=== PATIENT | male | born 1940 | race Caucasian/White ===

== ENCOUNTER → 2017-03-11 | Outpatient (REF) | payer MEDICARE, OTHER ==
[~2017-03-11] MED LIST: /AMLO25TA OR; /METO25TAB OR; ACET50TA PO; ALPR0.25 PO; AUGM875T27 PO; CILO100T PO; CLOP75TA2 PO; EUCECRE2 TOP; GABA100C PO; HEPA100SY INJ; HEPA100SYR IV; INSUDET SC; INSUH10VL INJ; LASI20TA PO; LEVO500I7 IV; LORTTAB2 PO; MULTTAB4 PO; SLF IV; VANC1INJ IV; VITA-121 PO; ZOCO20TA PO
== END ==
LOC: M LAB REF 17:04
PROVIDERS: ATTEND Podiatrist
DX: L97.422 Non-pressure chronic ulcer of left heel and midfoot with fat layer exposed (principal)

== ENCOUNTER → 2017-03-17 | Outpatient (REF) | payer MEDICARE, OTHER ==
[2017-03-17 15:34] LABS: BASO # 0.1 10^3/uL (0.0-0.2); BASO % 0.5 % (0.0-1.0); EOS # 0.4 10^3/uL (0.0-0.50); EOS % 3.8 % (0.0-3.0); IMMATURE GRANULOCYTE % 0.4 % (0-0); LYMPH # 2.8 10^3/uL (1.5-4.5); LYMPH % 25.3 % (24.0-44.0); MEAN CORPUSCULAR HEMOGLOBIN 28.7 pg (27.0-33.0); MEAN CORPUSCULAR HGB CONC 32.6 g/dl (32.0-36.5); MEAN CORPUSCULAR VOLUME 87.9 fl (80.0-96.0); MONO % 9.1 % (0.0-5.0); NEUTROPHILS # 6.8 10^3/uL (1.8-7.7); NEUTROPHILS % 60.9 % (36.0-66.0); PLATELET COUNT, AUTOMATED 252 10^3/uL (150-450); RED CELL DISTRIBUTION WIDTH 14.4 % (11.5-14.5); WHITE BLOOD COUNT 11.2 10^3/uL (4.0-10.0)
[2017-03-17 15:46] LABS: CALCIUM LEVEL 8.3 MG/DL (8.8-10.2); CREATININE FOR GFR 1.58 MG/DL (0.70-1.30); GLOMERULAR FILTRATION RATE 45.4 (>42); POTASSIUM SERUM 3.8 MEQ/L (3.5-5.1)
[2017-03-17 16:16] LABS: ERYTHROCYTE SEDIMENTATION RATE 46 mm/hr (0-20)
== END ==
LOC: M SFHCPLAZ 13:34
PROVIDERS: ATTEND Internal Medicine Infectious Disease
DX: M86.679 Other chronic osteomyelitis, unspecified ankle and foot (principal)

== ENCOUNTER 2018-08-18 21:03 | Inpatient (IN) | payer MEDICARE, OTHER ==
[~2018-08-18] VITALS: Ht 185.4 cm; Wt 95.4 kg
[2018-08-18] MEDS: CILOSTAZOL 100 MG TAB (PLETAL) PO SCH (21:00)
[~2018-08-18 21:03] MED LIST changes: -/AMLO25TA OR; -/METO25TAB OR; -ACET50TA PO; +MAPA500T17 PO; +METO1TAB87 OR; +NORV2TAB OR
[2018-08-19 00:35] VITALS: BP 157/65
[2018-08-19] MEDS ORDERED: CILO100T PO (01:38)
[2018-08-19] MEDS ORDERED: FURO40TA2 PO (01:38)
[2018-08-19] MEDS ORDERED: METO25TA4 PO (01:38)
[2018-08-19] MEDS ORDERED: AMLO5TAB6 PO (01:38)
[2018-08-19] MEDS ORDERED: SIMV20TA2 PO (01:38)
[2018-08-19] MEDS ORDERED: VITAD1000T PO (01:38)
[2018-08-19] MEDS ORDERED: VITMTA PO (01:38)
[2018-08-19] MEDS ORDERED: LEVE1INJ5 SC (01:38)
[2018-08-19] MEDS ORDERED: INSUH10VL SC (01:38)
[2018-08-19] MEDS ORDERED: CLOP75TA2 PO (01:38)
[2018-08-19] MEDS ORDERED: PATIENT COMMENT (01:42)
[2018-08-19] MEDS ORDERED: GLUCAGON FOR INJ 1 MG VIAL (J1610) SC PRN (01:45)
[2018-08-19] MEDS ORDERED: GLUCOSE 4 GM CHEW TABLET PO PRN (01:45)
[2018-08-19] MEDS ORDERED: DEXTROSE 50% 50 ML SYRINGE IV PRN (01:45)
[2018-08-19 02:02] LABS: BASO # 0.1 10^3/uL (0.0-0.2); BASO % 0.4 % (0.0-1.0); EOS # 0.3 10^3/uL (0.0-0.50); EOS % 1.5 % (0.0-3.0); HEMATOCRIT 33.9 % (42.0-52.0); HEMOGLOBIN 10.8 g/dl (13.5-17.5); LYMPH % 11.6 % (24.0-44.0); MEAN CORPUSCULAR HEMOGLOBIN 28.9 pg (27.0-33.0); MEAN CORPUSCULAR HGB CONC 31.9 g/dl (32.0-36.5); MEAN CORPUSCULAR VOLUME 90.6 fl (80.0-96.0); MONO # 1.5 10^3/uL (0.0-0.8); MONO % 8.8 % (0.0-5.0); PLATELET COUNT, AUTOMATED 265 10^3/uL (150-450); RED BLOOD COUNT 3.74 10^6/uL (4.30-6.10); WHITE BLOOD COUNT 16.9 10^3/uL (4.0-10.0)
[2018-08-19 02:28] LABS: C REACTIVE PROTEIN QUANTITATIV 10.8 MG/DL (0.00-0.30); CALCIUM LEVEL 8.2 MG/DL (8.8-10.2); CREATININE FOR GFR 2.08 MG/DL (0.70-1.30); POTASSIUM SERUM 4.7 MEQ/L (3.5-5.1)
[2018-08-19] MEDS: METOPROLOL TART 25 MG TABLET PO SCH ×3 (02:38→21:59)
[2018-08-19] MEDS: SIMVASTATIN 20 MG TAB PO SCH ×2 (02:38→21:59)
[2018-08-19] MEDS: HEPARIN SOD (PORCINE) 5000 UNITS/ML VIAL SC SCH ×3 (02:38→21:59)
[2018-08-19] MEDS: LEVEMIR (INSULIN DETEMIR) 1 UNITS/0.01ML SC SCH ×3 (02:39→22:00)
[2018-08-19] MEDS: VANCOMYCIN HCL 1,000 MG, VIAL MATE ADAPTER 1 EACH in D5W 250 ML IV SCH ×2 (02:39→13:56)
--- NOTE | 2018-08-19 03:11 | PHACANCOPD ---
PHARMACY VANCOMYCIN DOSING Pt Demographics Demographics Patient Age:77 , Weight:104.600 , Gender: male Adjusted Body Weight Date: 08/19/18, Adjusted Body Weight: Kg Events Past 24 Hours Events Past 24 Hours: NO: Dialysis, Diuretic Therapy, Change in CrCl, Fever, Elevation in WBC, Pending Diagnostics, Pending Procedures, Other Vancomycin Vancomycin Target Ranges: 15-20 mcg/ml Vancomycin Load Y/N: Yes Load Dose Date Time Vancomycin Load Dose: 1000MG / 1000MG Date: 08-18 Time: 2099 Vancomycin Dose Date: 08/19/18. Current Vancomycin Dose: [1000mg q12h] Intermittent Dosing?: No Labs Labs Item Value Date Time White Blood Count 16.9 10^3/uL H 08/19/18 0144 Glomerular Filtration Rate 33.0 L 08/19/184 Creatinine 2.08 MG/DL H 08/19/184 Blood Urea Nitrogen 31 MG/DL H 08/19/18 0144 Vital Signs Label Value Date Time Patient Temperature 98.4 degrees F 08/19/18 0035 Temperature Source Temporal 08/19/1834 Creatinine Clearance Date:08/19/18. Creatinine Clearance: [~34]. Pending Labs Trough - @0100 Assessment and Plan Maintaining Current Dose?: Yes Reason for dose change: No Dose Change Pharmacist Note Pharmacist Note Date: 08/19/18. Pharmacist note:Will monitor and make adjustments as needed. JACLYN DO PHARMACY August 19, 2018 03:11
--- NOTE | 2018-08-19 04:56 | HPEPDOC ---
General Date of Admission August 19, 2018 at 00:56 Date of Service: August 19, 2018 Chief Complaint The patient is a 77-year-old male admitted with a reason for visit of Diabetic Foot Ulcer With Osteomyelitis. Source: Patient, RN/, Old records History of Present Illness 77 year old male with PMH of diabetes, hypertension , diabetic neuropathy left foot Charcot joint, chronic osteomyelitis and chronic left foot ulcer on the planter aspect getting regular debarments by Dr Reeves last one was 3 days ago when every thing looked good presented to [facility] this am with redness an swelling of the dorsum of the left foot and increased redness around the chronic planter foot ulcer. The patient there had a WBC count of 18k he was given vanco and zosyn and transferred here for diabetic foot ulcer with ulcer and cellulitis. Here patient complained of increased swelling of the left foot, toes extending upto the mid leg for 2 days and redness of the dorsum of the foot. He does have a dull aching sensation but says he cannot feel much due to his neuropathy. Also the skin around his ulcer on the planter aspect of the foot is more erythematous. He has not noticed any increased discharge from the wound. He did not have any fevers or chills at home or the other hospital. He was admitted for diabetic foot ulcer with cellulitis and possible acute osteomyelitis. Home Medications Scheduled Amlodipine Besylate (Amlodipine Besylate) 5 Mg Tablet, 5 MG PO QHS, (Reported) Cilostazol (Cilostazol) 100 Mg Tablet, 100 MG PO BID, (Reported) Clopidogrel Bisulfate (Clopidogrel) 75 Mg Tablet, 75 MG PO DAILY, (Reported) Furosemide (Furosemide) 40 Mg Tablet, 40 MG PO DAILY, (Reported) Insulin Detemir (Levemir Flextouch) 100 Unit/1 Ml Insuln.pen, 60 UNIT SC QHS, (Reported) Insulin Human Lispro (Novolog) 100 Unit/1 Ml Vial, 1 DOSE SC TID, (Reported) Losartan Potassium (Losartan Potassium) 50 Mg Tablet, 50 MG PO DAILY, (Reported) Metoprolol Tartrate (Metoprolol Tartrate) 25 Mg Tablet, 25 MG PO BID, (Reported) Multivitamins (Thera M Plus Tablet) 1 Each Tablet, 1 TAB PO DAILY, (Reported) Silver Sulfadiazine (Ssd) 50 Gm Cream..g., 1 DOSE TOP BID, (Reported) APPLY TO ULCERS Simvastatin (Simvastatin) 20 Mg Tablet, 20 MG PO QHS, (Reported) Vitamin D (Vitamin D3) 1,000 Unit Tablet, 1,000 UNITS PO DAILY, (Reported) Allergies Coded Allergies: No Known Allergies (Unverified , 09/22/12) Past Medical History Medical History INSULIN-DEPENDENT DIABETES , DIABETIC NEUROPATHY, HISTOPLASMOSIS OF EYE ---LEGALLY BLIND , PERIPHERAL VASCULAR DISEASE , HYPERTENSION , CHRONIC DIABETIC FOOT ULCER ON THE LEFT FOOT PLANTER ASPECT , CHARCOT FOOT LEFT , CHRONIC OSTEOMYELITIS LEFT FOOT CHARCOT JOINT 10/2014 Surgical History STATUS POST BYPASS OF THE LEFT LEG DR. KUMAR VASCULAR SURGEON [facility] IN 2012 , SPOTS REMOVED ON LEFT ARM AND RIGHT KNEE 2014 , BONE REMOVED LEFT FOOT , Family History FATHER: , DIABETES , MOTHER: , OLD AGE, HTN , 1 SISTER(S) . 1 SON(S) , 2 DAUGHTER(S) . Social History * Smoker: Denies Alcohol: Denies Drugs: denies A-FIB/CHADSVASC A-FIB History Current/History of A-Fib/PAF?: No Review of Systems Constitutional: Denies: Chills, Fever, Night Sweats Eyes: Reports: Other (legally blind); Denies: Pain, Vision change ENT: Denies: Head Aches, Ear Pain, Dysphagia Skin: Reports: Itching, Dry, Breakdown (left foot planter aspect ulcer); Denies: Rash, Lesions Pulmonary: Denies: Dyspnea, Cough Cardiovascular: Denies: Chest Pain, Palpitations, Orthopnea, Paroxysmal Noc. Dyspnea Gastrointestinal: Denies: Nausea, Vomiting, Abdominal Pain, Diarrhea Genitourinary: Denies: Dysuria, Frequency, Incontinence, Retention Musculoskeletal: Denies: Neck Pain, Back Pain, Joint Pain, Muscle Pain, Spasms Psych: Reports: Mood Normal; Denies: Depression, Memory Issues Physical Examination General Exam: Positive: Alert, Cooperative, No Acute Distress Eye Exam: Positive: PERRLA, Conjunctiva & lids normal, EOMI; Negative: Sclera icteric ENT Exam: Positive: Atraumatic, Mucous membr. moist/pink, Pharynx Normal Neck Exam: Positive: Supple; Negative: JVD, thyromegaly Chest Exam: Positive: Clear to auscultation, Normal air movement Heart Exam: Positive: Rate Normal, Regular Rhythm, Normal S1, Normal S2; Negative: Murmurs, Rubs Abdomen Exam: Positive: Normal bowel sounds, Soft; Negative: Tenderness, Hepatospenomegaly Extremity Exam: Positive: Edema (on the left leg ) Skin Exam: Positive: Other skin issue (5cm x 4cm planter ulcer in the left foot with clean base, muscles exposed there with surrounding thick skin and inflamat ion. No necrotic tissue seen. ) Neuro Exam: Positive: Normal Speech, Strength at 5/5 X4 ext, Normal Tone Psych Exam: Positive: Mood NL, Memory Intact, Oriented x 3 Vital Signs Vital Signs Date Time Temp Pulse Resp B/P (MAP) Pulse Ox O2 Delivery O2 Flow Rate FiO2 08/19/18 00:35 98.4 99 18 157/65 (95) 96 Laboratory Data Labs 24H Laboratory Tests 2 08/19/18 01:01: Bedside Glucose (Misc Panel) 284H Assessment/Plan 77 year old male with PMH of diabetes, hypertension , diabetic neuropathy left foot Charcot joint, chronic osteomyelitis and chronic left foot ulcer on the planter aspect getting regular debarments by Dr Reeves last one was 3 days ago when every thing looked good presented to [facility] this am with redness an swelling of the dorsum of the left foot and increased redness around the chronic planter foot ulcer. The patient there had a WBC count of 18k he was given vanco and zosyn and transferred here for diabetic foot ulcer with ulcer and cellulitis. Here patient complained of increased swelling of the left foot, toes extending upto the mid leg for 2 days and redness of the dorsum of the foot. He does have a dull aching sensation but says he cannot feel much due to his neuropathy. Also the skin around his ulcer on the planter aspect of the foot is more erythematous. He has not noticed any increased discharge from the wound. He did not have any fevers or chills at home or the other hospital. He was admitted for diabetic foot ulcer with cellulitis and possible acute osteomyelitis. Cellulitis and possible acute osteomyelitis in a diabetic foot with Charcot joint. Patient has chronic diabetic foot ulcer on the left with chronic osteomyelitis being followed by Dr Reeves now seems to have become acutely infected patient has history of MRSA infection before. will give Zosyn and vanco. Follow cultures sent from other hospital. will get foot MRi consult podiatry if needed. May need long course of antibiotics Insulin dependent Diabetes with diabetic neuropathy continue Levemir and lispro Ckd stage 3 to 4 creatinine at 2 today was 1.6 2 years ao so i think this is chronic progression Chronic Anemia probably due to anemia of chronic disease. will check iron levels. stable Hypertension will continue home meds. Peripheral arterial disease s/p bypass graft in the left leg. will continue cilostazole and plavix. hyperlipidemia statin. DVT prophylaxis ordered. Plan / VTE VTE Prophylaxis Ordered?: Yes PAIGE PICHARDO MD August 19, 2018 01:39
[2018-08-19] MEDS: PIPERACILLIN/TAZOBACTAM SOD 2.25 GM in D5W MINI-BAG PLUS 50 ML IV SCH ×4 (05:10→22:00)
[2018-08-19 06:00] VITALS: BP 134/60
[2018-08-19 06:38] LABS: BASO # 0.1 10^3/uL (0.0-0.2); BASO % 0.6 % (0.0-1.0); EOS # 0.3 10^3/uL (0.0-0.50); EOS % 2.2 % (0.0-3.0); HEMATOCRIT 33.8 % (42.0-52.0); HEMOGLOBIN 10.8 g/dl (13.5-17.5); LYMPH # 1.7 10^3/uL (1.5-4.5); LYMPH % 11.6 % (24.0-44.0); MEAN CORPUSCULAR HEMOGLOBIN 28.7 pg (27.0-33.0); MEAN CORPUSCULAR VOLUME 89.9 fl (80.0-96.0); MONO # 1.3 10^3/uL (0.0-0.8); MONO % 8.7 % (0.0-5.0); NEUTROPHILS # 11.1 10^3/uL (1.8-7.7); NEUTROPHILS % 76.4 % (36.0-66.0); PLATELET COUNT, AUTOMATED 261 10^3/uL (150-450); RED BLOOD COUNT 3.76 10^6/uL (4.30-6.10); WHITE BLOOD COUNT 14.5 10^3/uL (4.0-10.0)
[2018-08-19 07:10] LABS: C REACTIVE PROTEIN QUANTITATIV 12.9 MG/DL (0.00-0.30); CALCIUM LEVEL 8.1 MG/DL (8.8-10.2); CREATININE FOR GFR 2.09 MG/DL (0.70-1.30); GLOMERULAR FILTRATION RATE 32.8 (>42); POTASSIUM SERUM 4.5 MEQ/L (3.5-5.1)
[2018-08-19] MEDS: HumaLOG INSULIN (NovoLOG) PER UNIT SC SCH ×4 (09:54→22:00)
[2018-08-19] MEDS: CLOPIDOGREL 75 MG TAB PO SCH (09:55)
[2018-08-19] MEDS: CILOSTAZOL 100 MG TAB (PLETAL) PO SCH ×2 (09:55→21:59)
[2018-08-19] MEDS: amLODIPine 5 MG TAB PO SCH (09:58)
--- NOTE | 2018-08-19 12:35 | REPVR ---
EXAM: MR Left Lower Extremity Without Contrast, Foot EXAM DATE/TIME: 08/19/2018 9:21 AM CLINICAL HISTORY: 77 years old, male; Signs and symptoms; Swelling, leg or foot; Patient HX: Chronic foot wound mid sole of foot; Additional info: Osteomyelitis TECHNIQUE: Imaging protocol: MR of the Left foot without intravenous contrast. COMPARISON: MRI-Foot W/O FOL WITH 11/08/2012 11:16 AM FINDINGS: LIGAMENTS: Medial collateral: Unremarkable. No evidence of tear. Lateral collateral: Unremarkable. No evidence of tear. Lisfranc: There appears to be a complete tear of the Lisfranc ligament. TENDONS: Flexors: Unremarkable. No evidence of tear. Extensors: Unremarkable. No evidence of tear. Peroneal: Abnormal signal within the mid and distal peroneus longus tendon, compatible with tendinosis and at least a partial-thickness tear. The most distal portion of the tendon is difficult to delineate. Tibialis anterior: Unremarkable. No evidence of tear. Tibialis posterior: Trace fluid in the posterior tibialis tendon sheath. Mild distal posterior tibialis tendinosis. Muscles: Intramuscular edema at the plantar aspect of the foot. Fluid: There is a small loculated intramuscular fluid collection at the plantar aspect of the base of the third metatarsal. This measures 8 mm x 7 mm x 9 mm, and is suspicious for an abscess. Sinus tarsi: Unremarkable. Tarsal tunnel: Unremarkable. Plantar fascia: Complete tear of the central band of the plantar fascia, measuring approximately 2.5 cm x 3.7 cm. Cartilage: Unremarkable. Bones/joints: Pes planus. Plantar subluxation of the navicular, cuboid, and cuneiforms. Medial subluxation of the navicular. Moderate degenerative changes of the midfoot. Hypointense T1 and hyperintense T2 subchondral marrow signal within the plantar aspect of the lateral cuneiform. Slightly hypointense T1 and moderately hyperintense T2 marrow signal throughout the cuboid. Suspected resection of the medial cuneiform. Soft tissues: Diffuse subcutaneous edema. IMPRESSION: 1. Findings are suggestive of acute osteomyelitis involving the cuboid and lateral cuneiform. 2. Probable small soft tissue abscess at the plantar aspect of the proximal forefoot. 3. Cellulitis and myositis. 4. Charcot joint. 5. Mild posterior tibialis tendinosis and tenosynovitis. 6. Peroneus longus tendinosis and at least partial thickness tear of the distal tendon. 7. Full-thickness tear of the plantar fascia. Electronically signed by: Tania Franco On 08/19/2018 12:35:01 PM
[2018-08-19 14:00] VITALS: BP 103/48
--- NOTE | 2018-08-19 14:47 | CR ---
DATE OF CONSULTATION: 08/19/2018 BRIEF HISTORY OF PRESENT ILLNESS: The patient is a 77-year-old male who presents to the [facility] with cellulitis of his left foot. He has been seeing Dr. Reeves every week or every other week for this Charcot foot deformity with chronic osteomyelitis, chronic foot ulcer and developed some swelling and increasing pain for the last 2 days. He has had no fevers or chills. Had an increased white count and presents now for additional recommendations. Underwent a MRI of the foot which reportedly shows osteomyelitis of the cuboid the lateral cuneiform. There is a question of a small abscess and it is less than a centimeter in size. There is some cellulitis inflammation of the muscles, etc. The patient presents with a elevated white count of 16.9 early this morning and it is down to 14.5 now. PAST MEDICAL HISTORY: His past medical history is significant for history of diabetes mellitus, history of previous debridements of the foot removal of bones, history of Charcot foot, history of peripheral vascular disease status post left fem distal bypass, history of diabetic neuropathy. MEDICATIONS: Amlodipine, cilostazol, Plavix, Lasix, insulin, metoprolol, simvastatin, vitamin D and multivitamins. PHYSICAL EXAMINATION: Reveals a 77-year-old male who looks stated age. HEENT is unremarkable. Neck: Supple without adenopathy. Lungs are clear. Heart is regular with multiple irregular beats. Abdomen: Soft, nontender, nondistended. Extremities reveal 2 to 3+ pitting edema of the foot. There is some reactive erythema with the foot down but when he has his foot up majority of the erythema seems to go away. But there is still some present. The wound was probed with a Q-tip and cannot appreciate the abscess at this time. Did not seem to deep into the midfoot. No purulent drainage was appreciated. IMPRESSION AND PLAN: The patient has cellulitis of the left foot with a questionable small abscess, although at this point I am not convinced, that it may just be some fluid in between that tissue layers. I would recommend local dressing changes keep foot elevated and I would recommend that if he is still here on Tuesday I should consult Dr. Reeves for additional recommendations. Unfortunately, given his foot deformity he will have some chronic issues indefinitely and given his poor healing of the past I anticipate this may be something that will be a lifelong and have concerning potential for a need for DKA at some point. In any case the patient is stable at this point no urgent or emergent need for operative intervention / amputation. Please contact me if you would like further recommendations but at this point I anticipate just foot elevation antibiotics. Local wound care should be adequate to improve the current situation until Dr. Reeves returns from his holiday weekend.
--- NOTE | 2018-08-19 18:03 | IPNPDOC ---
Date Seen The patient was seen on 08/19/18. Progress Note SUBJECTIVE: Patient looks comfortable. Reports discomfort in L. foot due to ulcer but otherwise denies any other complaints. MRI reported evidence of osteomyelitis. Surgery evaluated. OBJECTIVE PHYSICAL EXAMINATION: VITAL SIGNS: Please see below. General: No acute distress, Alert Eyes: Normal sclera, EOMI, KYLEIGH HENT: Atraumatic, neck supple, moist mucous membranes Cardiovascular: Normal rate, normal rhythm. No murmurs appreciated. Pulmonary: Clear to auscultation b/l, no wheezing GI: Soft, nontender, nondistended Skin: Warm and dry. MSK: L. mid foot plantar surface with open wound dry with some erythema. Neuro: CN grossly intact. No focal deficits. Strengths equal b/l. Psych: oriented x 3 LABORATORY DATA, IMAGING STUDIES, MICROBIOLOGY: Please see below. ASSESSMENT AND PLAN: 1. L. foot wound - Chronic diabetic wound normally follows with Dr. Reeves. - Transferred from [facility] for concern of osteomyelitis as patient with leukocytosis of WBC 18. Now trending down. - Patient appeared comfortable however. - MRI of L. foot showed evidence of Osteo and possible small abscess. - Seen by surgery. Recommended Abx at this time, f/u with Podiatry once available. No surgical recommendation at this time. - No evidence of abscess on surgical exam. - Local dressing changes and keeping foot elevated. 2. HTN - Monitor BP - Resume home medications. 3. IDDM - Resume home insulin. - Accuchecks, ISS. 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 IVF if needed. 5. PAD - s/p bypass graft of L. leg - c/w home meds. 6. HLD - c/w home meds VS, I&O, 24H, Fishbone Vital Signs/I&O Vital Signs Date Time Temp Pulse Resp B/P (MAP) Pulse Ox O2 Delivery O2 Flow Rate FiO2 08/19/18 14:00 97.5 87 18 103/48 (66) 96 I&O- Last 24 Hours up to 6 AM 08/19/18 06:00 Intake Total 300 ml Output Total 0 ml Balance 300 ml Laboratory Data 24H LABS Laboratory Tests 2 08/19/18 01:01: Bedside Glucose (Misc Panel) 284H 08/19/18 01:44: Immature Granulocyte % (Auto) 0.7, White Blood Count 16.9H, Red Blood Count 3.74L, Hemoglobin 10.8L, Hematocrit 33.9L, Mean Corpuscular Volume 90.6, Mean Corpuscular Hemoglobin 28.9, Mean Corpuscular Hemoglobin Concent 31.9L, Red Cell Distribution Width 13.6, Platelet Count 265, Neutrophils (%) (Auto) 77.0H, Lymphocytes (%) (Auto) 11.6L, Monocytes (%) (Auto) 8.8H, Eosinophils (%) (Auto) 1.5, Basophils (%) (Auto) 0.4, Neutrophils # (Auto) 13.0H, Lymphocytes # (Auto) 2.0, Monocytes # (Auto) 1.5H, Eosinophils # (Auto) 0.3, Basophils # (Auto) 0.1, Nucleated Red Blood Cells % (auto) 0.0, Anion Gap 7L, Glomerular Filtration Rate 33.0L, Blood Urea Nitrogen 31H, Creatinine 2.08H, Sodium Level 134L, Potassium Level 4.7, Chloride Level 103, Carbon Dioxide Level 24, Calcium Level 8.2L, C-Reactive Protein, Quantitative 10.80H 08/19/18 06:17: Immature Granulocyte % (Auto) 0.5, White Blood Count 14.5H, Red Blood Count 3.76L, Hemoglobin 10.8L, Hematocrit 33.8L, Mean Corpuscular Volume 89.9, Mean Corpuscular Hemoglobin 28.7, Mean Corpuscular Hemoglobin Concent 32.0, Red Cell Distribution Width 13.6, Platelet Count 261, Neutrophils (%) (Auto) 76.4H, Lymphocytes (%) (Auto) 11.6L, Monocytes (%) (Auto) 8.7H, Eosinophils (%) (Auto) 2.2, Basophils (%) (Auto) 0.6, Neutrophils # (Auto) 11.1H, Lymphocytes # (Auto) 1.7, Monocytes # (Auto) 1.3H, Eosinophils # (Auto) 0.3, Basophils # (Auto) 0.1, Nucleated Red Blood Cells % (auto) 0.0, Anion Gap 7L, Glomerular Filtration Rate 32.8L, Blood Urea Nitrogen 32H, Creatinine 2.09H, Sodium Level 132L, Potassium Level 4.5, Chloride Level 102, Carbon Dioxide Level 23, Calcium Level 8.1L, C- Reactive Protein, Quantitative 12.90H 08/19/18 11:24: Bedside Glucose (Misc Panel) 346H 08/19/18 16:33: Bedside Glucose (Misc Panel) 183H CBC/BMP Laboratory Tests 08/19/18 01:44 Red Blood Count 3.74 L, Mean Corpuscular Volume 90.6, Mean Corpuscular Hemoglobin 28.9, Mean Corpuscular Hemoglobin Concent 31.9 L, Red Cell Distribution Width 13.6, Neutrophils (%) (Auto) 77.0 H, Lymphocytes (%) (Auto) 11.6 L, Monocytes (%) (Auto) 8.8 H, Eosinophils (%) (Auto) 1.5, Basophils (%) (Auto) 0.4, Neutrophils # (Auto) 13.0 H, Lymphocytes # (Auto) 2.0, Monocytes # (Auto) 1.5 H, Eosinophils # (Auto) 0.3, Basophils # (Auto) 0.1, Calcium Level 8.2 L 08/19/18 06:17 Red Blood Count 3.76 L, Mean Corpuscular Volume 89.9, Mean Corpuscular Hemoglobin 28.7, Mean Corpuscular Hemoglobin Concent 32.0, Red Cell Distribution Width 13.6, Neutrophils (%) (Auto) 76.4 H, Lymphocytes (%) (Auto) 11.6 L, Monocytes (%) (Auto) 8.7 H, Eosinophils (%) (Auto) 2.2, Basophils (%) (Auto) 0.6, Neutrophils # (Auto) 11.1 H, Lymphocytes # (Auto) 1.7, Monocytes # (Auto) 1.3 H, Eosinophils # (Auto) 0.3, Basophils # (Auto) 0.1, Calcium Level 8.1 L Microbiology Microbiology 08/19/18 Gram Stain - Final, Resulted 08/19/18 Wound Culture, Resulted Pending FRANCOISE JOHNSON MD August 19, 2018 18:03
[2018-08-19 22:00] VITALS: BP 142/66
--- NOTE | 2018-08-20 01:29 | PHACANCOPD ---
PHARMACY VANCOMYCIN DOSING Pt Demographics Demographics Patient Age:77 , Weight:104.600 , Gender: male Adjusted Body Weight Date: 08/19/18, Adjusted Body Weight: Kg Events Past 24 Hours Events Past 24 Hours: NO: Dialysis, Diuretic Therapy, Change in CrCl, Fever, Elevation in WBC, Pending Diagnostics, Pending Procedures, Other Vancomycin Vancomycin Target Ranges: 15-20 mcg/ml Vancomycin Load Y/N: Yes Load Dose Date Time Vancomycin Load Dose: 1000MG / 1000MG Date: 08-18 Time: 2099 Vancomycin Dose Date: 08/20/18. Current Vancomycin Dose: [1000mg q12h] Intermittent Dosing?: No Labs Labs Item Value Date Time White Blood Count 14.5 10^3/uL H 08/19/18616 Glomerular Filtration Rate 32.8 L 08/19/18616 Creatinine 2.09 MG/DL H 08/19/18616 Blood Urea Nitrogen 32 MG/DL H 08/19/18616 Vancomycin Level Trough 18.2 UG/ML 08/20/18 0053 Vital Signs Label Value Date Time Patient Temperature 98.6 degrees F 08/19/18 2200 Temperature Source Temporal 08/19/18 2200 Micro Microbiology 08/19/18 Gram Stain - Final, Resulted 08/19/18 Wound Culture, Resulted Pending Creatinine Clearance Date:08/19/18. Creatinine Clearance: [~34]. Assessment and Plan Maintaining Current Dose?: Yes Reason for dose change: No Dose Change Pharmacist Note Pharmacist Note Date: 08/19/18. Pharmacist note:Trough of 18.2 is within target range. Will continue current dosing. Will continue to monitor and make adjustments as needed. JACLYN DO PHARMACY August 20, 2018 01:29
[2018-08-20] MEDS: VANCOMYCIN HCL 1,000 MG, VIAL MATE ADAPTER 1 EACH in D5W 250 ML IV SCH ×2 (01:48→15:05)
[2018-08-20] MEDS: PIPERACILLIN/TAZOBACTAM SOD 2.25 GM in D5W MINI-BAG PLUS 50 ML IV SCH ×4 (03:40→20:51)
[2018-08-20 06:00] VITALS: BP 162/84
[2018-08-20 06:57] LABS: BASO % 0.4 % (0.0-1.0); EOS # 0.6 10^3/uL (0.0-0.50); EOS % 5.8 % (0.0-3.0); HEMOGLOBIN 10.6 g/dl (13.5-17.5); LYMPH # 2.1 10^3/uL (1.5-4.5); MEAN CORPUSCULAR HEMOGLOBIN 28.2 pg (27.0-33.0); MEAN CORPUSCULAR HGB CONC 32.1 g/dl (32.0-36.5); MEAN CORPUSCULAR VOLUME 87.8 fl (80.0-96.0); MONO % 9.1 % (0.0-5.0); NEUTROPHILS # 6.8 10^3/uL (1.8-7.7); PLATELET COUNT, AUTOMATED 269 10^3/uL (150-450); RED BLOOD COUNT 3.76 10^6/uL (4.30-6.10); WHITE BLOOD COUNT 10.7 10^3/uL (4.0-10.0)
[2018-08-20 07:20] LABS: CALCIUM LEVEL 8.7 MG/DL (8.8-10.2); CREATININE FOR GFR 1.86 MG/DL (0.70-1.30); GLOMERULAR FILTRATION RATE 37.5 (>42); POTASSIUM SERUM 4.1 MEQ/L (3.5-5.1)
[2018-08-20] MEDS: CLOPIDOGREL 75 MG TAB PO SCH (08:51)
[2018-08-20] MEDS: amLODIPine 5 MG TAB PO SCH (08:52)
[2018-08-20] MEDS: METOPROLOL TART 25 MG TABLET PO SCH ×2 (08:52→21:56)
[2018-08-20] MEDS: HumaLOG INSULIN (NovoLOG) PER UNIT SC SCH ×4 (08:55→21:55)
[2018-08-20] MEDS: LEVEMIR (INSULIN DETEMIR) 1 UNITS/0.01ML SC SCH ×2 (08:55→21:55)
[2018-08-20] MEDS: HEPARIN SOD (PORCINE) 5000 UNITS/ML VIAL SC SCH ×2 (08:56→21:55)
[2018-08-20] MEDS: CILOSTAZOL 100 MG TAB (PLETAL) PO SCH ×2 (08:59→21:57)
[2018-08-20] MEDS ORDERED: LOSA50TA88 PO (11:13)
[2018-08-20] MEDS ORDERED: SILV50CR TOP (11:15)
--- NOTE | 2018-08-20 11:46 | IPNPDOC ---
Date Seen The patient was seen on 08/20/18. Progress Note SUBJECTIVE: Patient looks comfortable. Mild L. foot discomfort overall improving. Afebrile overnight. WBC down to 10.7 today from 14.5. OBJECTIVE PHYSICAL EXAMINATION: VITAL SIGNS: Please see below. General: No acute distress, Alert Eyes: Normal sclera, EOMI, KYLEIGH HENT: Atraumatic, neck supple, moist mucous membranes Cardiovascular: Normal rate, normal rhythm. No murmurs appreciated. Pulmonary: Clear to auscultation b/l, no wheezing GI: Soft, nontender, nondistended Skin: Warm and dry. MSK: L. mid foot plantar surface with open wound dry with some erythema. Neuro: CN grossly intact. No focal deficits. Strengths equal b/l. Psych: oriented x 3 LABORATORY DATA, IMAGING STUDIES, MICROBIOLOGY: Please see below. ASSESSMENT AND PLAN: 1. L. foot wound - Chronic diabetic wound normally follows with Dr. Reeves. - Transferred from [facility] for concern of osteomyelitis as patient with leukocytosis of WBC 18. Now trending down. - Patient appeared comfortable however. - MRI of L. foot showed evidence of Osteo and possible small abscess. - Seen by surgery. Recommended Abx at this time, f/u with Podiatry once available. No surgical recommendation at this time. - No evidence of abscess on surgical exam. - Local dressing changes and keeping foot elevated. 2. HTN - Monitor BP - Resume home medications. 3. IDDM - Resume home insulin. - Accuchecks, ISS. 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 IVF if needed. 5. PAD - s/p bypass graft of L. leg - c/w home meds. 6. HLD - c/w home meds VS, I&O, 24H, Fishbone Vital Signs/I&O Vital Signs Date Time Temp Pulse Resp B/P (MAP) Pulse Ox O2 Delivery O2 Flow Rate FiO2 08/20/18 08:52 82 162/84 08/20/18 06:00 98.7 20 95 I&O- Last 24 Hours up to 6 AM 08/20/18 06:00 Intake Total 2100 ml Output Total 0 ml Balance 2100 ml Laboratory Data 24H LABS Laboratory Tests 2 08/19/18 16:33: Bedside Glucose (Misc Panel) 183H 08/19/18 21:48: Bedside Glucose (Misc Panel) 278H 08/20/18 00:53: Vancomycin Level Trough 18.2 08/20/18 06:40: Immature Granulocyte % (Auto) 0.7, White Blood Count 10.7H, Red Blood Count 3.76L, Hemoglobin 10.6L, Hematocrit 33.0L, Mean Corpuscular Volume 87.8, Mean Corpuscular Hemoglobin 28.2, Mean Corpuscular Hemoglobin Concent 32.1, Red Cell Distribution Width 13.5, Platelet Count 269, Neutrophils (%) (Auto) 64.0, Lymphocytes (%) (Auto) 20.0L, Monocytes (%) (Auto) 9.1H, Eosinophils (%) (Auto) 5.8H, Basophils (%) (Auto) 0.4, Neutrophils # (Auto) 6.8, Lymphocytes # (Auto) 2.1, Monocytes # (Auto) 1.0H, Eosinophils # (Auto) 0.6H, Basophils # (Auto) 0.0, Nucleated Red Blood Cells % (auto) 0.0, Anion Gap 6L, Glomerular Filtration Rate 37.5L, Blood Urea Nitrogen 26H, Creatinine 1.86H, Sodium Level 140#, Potassium Level 4.1, Chloride Level 109H, Carbon Dioxide Level 25, Calcium Level 8.7L 08/20/18 11:24: Bedside Glucose (Misc Panel) 184H CBC/BMP Laboratory Tests 08/20/18 06:40 Red Blood Count 3.76 L, Mean Corpuscular Volume 87.8, Mean Corpuscular Hemoglobin 28.2, Mean Corpuscular Hemoglobin Concent 32.1, Red Cell Distribution Width 13.5, Neutrophils (%) (Auto) 64.0, Lymphocytes (%) (Auto) 20.0 L, Monocytes (%) (Auto) 9.1 H, Eosinophils (%) (Auto) 5.8 H, Basophils (%) (Auto) 0.4, Neutrophils # (Auto) 6.8, Lymphocytes # (Auto) 2.1, Monocytes # (Auto) 1.0 H, Eosinophils # (Auto) 0.6 H, Basophils # (Auto) 0.0, Calcium Level 8.7 L Microbiology Microbiology 08/19/18 Gram Stain - Final, Resulted 08/19/18 Wound Culture, Resulted Pending FRANCOISE JOHNSON MD August 20, 2018 11:46
[2018-08-20 14:00] VITALS: BP 151/67
[2018-08-20] MEDS: LOSARTAN 50 MG TAB PO SCH (14:57)
[2018-08-20] MEDS: FUROSEMIDE 40 MG TAB PO SCH (14:58)
[2018-08-20] MEDS: SIMVASTATIN 20 MG TAB PO SCH (21:56)
[2018-08-20 22:00] VITALS: BP 135/69
[2018-08-21] MEDS: VANCOMYCIN HCL 1,000 MG, VIAL MATE ADAPTER 1 EACH in D5W 250 ML IV SCH (02:28)
[2018-08-21] MEDS: PIPERACILLIN/TAZOBACTAM SOD 2.25 GM in D5W MINI-BAG PLUS 50 ML IV SCH ×4 (04:33→21:30)
[2018-08-21 06:00] VITALS: BP 136/74
[2018-08-21 07:07] LABS: BASO # 0.1 10^3/uL (0.0-0.2); BASO % 0.5 % (0.0-1.0); EOS # 0.5 10^3/uL (0.0-0.50); EOS % 5.8 % (0.0-3.0); HEMATOCRIT 32.9 % (42.0-52.0); HEMOGLOBIN 10.7 g/dl (13.5-17.5); LYMPH # 1.5 10^3/uL (1.5-4.5); LYMPH % 16.6 % (24.0-44.0); MEAN CORPUSCULAR HEMOGLOBIN 29.2 pg (27.0-33.0); MEAN CORPUSCULAR HGB CONC 32.5 g/dl (32.0-36.5); MEAN CORPUSCULAR VOLUME 89.9 fl (80.0-96.0); MONO # 0.9 10^3/uL (0.0-0.8); MONO % 9.3 % (0.0-5.0); NEUTROPHILS # 6.2 10^3/uL (1.8-7.7); NEUTROPHILS % 67.3 % (36.0-66.0); PLATELET COUNT, AUTOMATED 257 10^3/uL (150-450); RED BLOOD COUNT 3.66 10^6/uL (4.30-6.10); WHITE BLOOD COUNT 9.2 10^3/uL (4.0-10.0)
[2018-08-21 07:29] LABS: CREATININE FOR GFR 1.87 MG/DL (0.70-1.30); GLOMERULAR FILTRATION RATE 37.3 (>42); POTASSIUM SERUM 4.6 MEQ/L (3.5-5.1)
[2018-08-21] MEDS: HEPARIN SOD (PORCINE) 5000 UNITS/ML VIAL SC SCH ×2 (08:49→21:31)
[2018-08-21] MEDS: HumaLOG INSULIN (NovoLOG) PER UNIT SC SCH ×4 (08:49→21:32)
[2018-08-21] MEDS: LOSARTAN 50 MG TAB PO SCH (08:50)
[2018-08-21] MEDS: FUROSEMIDE 40 MG TAB PO SCH (08:50)
[2018-08-21] MEDS: CILOSTAZOL 100 MG TAB (PLETAL) PO SCH ×2 (08:50→21:31)
[2018-08-21] MEDS: LEVEMIR (INSULIN DETEMIR) 1 UNITS/0.01ML SC SCH ×2 (08:50→21:32)
[2018-08-21] MEDS: CLOPIDOGREL 75 MG TAB PO SCH (08:51)
[2018-08-21] MEDS: METOPROLOL TART 25 MG TABLET PO SCH ×2 (08:51→21:31)
[2018-08-21] MEDS: amLODIPine 5 MG TAB PO SCH (08:51)
--- NOTE | 2018-08-21 09:25 | IPN ---
DATE OF SERVICE: 08/21/2018 The patient seems to be doing well overnight. Has decreasing edema. Has been afebrile. His white count is down to normal. He has had decreasing drainage from his foot. Overall, on his physical examination, his edema, erythema, and drainage has decreased substantially since his admission. IMPRESSION AND PLAN: The patient has a stable wound. At this point, it can be evaluated by Dr. Reeves when he returns to the area tomorrow or as an outpatient. From a surgical standpoint, no emergent surgical intervention is needed, and I will be signing off for now. Please contact me if you need further advice or information.
--- NOTE | 2018-08-21 10:12 | IPNPDOC ---
Date Seen The patient was seen on 08/21/18. Progress Note SUBJECTIVE: Patient looks comfortable and offered no complaints. L. foot dressing changed this AM. Afebrile overnight. Leukocytosis resolved. OBJECTIVE PHYSICAL EXAMINATION: VITAL SIGNS: Please see below. General: No acute distress, Alert Eyes: Normal sclera, EOMI, KYLEIGH HENT: Atraumatic, neck supple, moist mucous membranes Cardiovascular: Normal rate, normal rhythm. No murmurs appreciated. Pulmonary: Clear to auscultation b/l, no wheezing GI: Soft, nontender, nondistended Skin: Warm and dry. MSK: L. mid foot plantar surface with open wound dry with some erythema. Neuro: CN grossly intact. No focal deficits. Strengths equal b/l. Psych: oriented x 3 LABORATORY DATA, IMAGING STUDIES, MICROBIOLOGY: Please see below. ASSESSMENT AND PLAN: 1. L. foot wound - Chronic diabetic wound normally follows with Dr. Reeves. - Transferred from [facility] for concern of osteomyelitis as patient with leukocytosis of WBC 18. Now trending down. - MRI of L. foot showed evidence of Osteo and possible small abscess. Seen by surgery, does not appear to have abscess. - c/w Abx at this time, f/u with Podiatry once available. No surgical recommendation at this time. - Local dressing changes and keeping foot elevated. 2. HTN - Monitor BP - Resume home medications. 3. IDDM - Resume home insulin. - Accuchecks, ISS. 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 IVF if needed. 5. PAD - s/p bypass graft of L. leg - c/w home meds. 6. HLD - c/w home meds VS, I&O, 24H, Supriya Vital Signs/I&O Vital Signs Date Time Temp Pulse Resp B/P (MAP) Pulse Ox O2 Delivery O2 Flow Rate FiO2 08/21/18 08:51 83 136/74 08/21/18 06:00 97.6 18 96 I&O- Last 24 Hours up to 6 AM 08/21/18 06:00 Intake Total 2710 ml Output Total 400 ml Balance 2310 ml Laboratory Data 24H LABS Laboratory Tests 2 08/20/18 11:24: Bedside Glucose (Misc Panel) 184H 08/20/18 17:05: Bedside Glucose (Misc Panel) 309H 08/20/18 21:42: Bedside Glucose (Misc Panel) 331H 08/21/18 06:49: Immature Granulocyte % (Auto) 0.5, White Blood Count 9.2, Red Blood Count 3.66L, Hemoglobin 10.7L, Hematocrit 32.9L, Mean Corpuscular Volume 89.9, Mean Corpuscular Hemoglobin 29.2, Mean Corpuscular Hemoglobin Concent 32.5, Red Cell Distribution Width 13.2, Platelet Count 257, Neutrophils (%) (Auto) 67.3H, Lymphocytes (%) (Auto) 16.6L, Monocytes (%) (Auto) 9.3H, Eosinophils (%) (Auto) 5.8H, Basophils (%) (Auto) 0.5, Neutrophils # (Auto) 6.2, Lymphocytes # (Auto) 1.5, Monocytes # (Auto) 0.9H, Eosinophils # (Auto) 0.5, Basophils # (Auto) 0.1, Nucleated Red Blood Cells % (auto) 0.0, Anion Gap 5L, Glomerular Filtration Rate 37.3L, Blood Urea Nitrogen 21H, Creatinine 1.87H, Sodium Level 139, Potassium Level 4.6, Chloride Level 107, Carbon Dioxide Level 27, Calcium Level 8.0L CBC/BMP Laboratory Tests 08/21/18 06:49 Red Blood Count 3.66 L, Mean Corpuscular Volume 89.9, Mean Corpuscular Hemoglobin 29.2, Mean Corpuscular Hemoglobin Concent 32.5, Red Cell Distribution Width 13.2, Neutrophils (%) (Auto) 67.3 H, Lymphocytes (%) (Auto) 16.6 L, Monocytes (%) (Auto) 9.3 H, Eosinophils (%) (Auto) 5.8 H, Basophils (%) (Auto) 0.5, Neutrophils # (Auto) 6.2, Lymphocytes # (Auto) 1.5, Monocytes # (Auto) 0.9 H, Eosinophils # (Auto) 0.5, Basophils # (Auto) 0.1, Calcium Level 8.0 L Microbiology Microbiology 08/19/18 Gram Stain - Final, Complete 08/19/18 Wound Culture - Final, Complete Staphylococcus Aureus FRANCOISE JOHNSON MD August 21, 2018 10:12
[2018-08-21 14:00] VITALS: BP 147/69
--- NOTE | 2018-08-21 14:50 | PHACANCOPD ---
PHARMACY VANCOMYCIN DOSING Pt Demographics Demographics Patient Age:77 , Weight:104.900 , Gender: male Adjusted Body Weight Date: 08/19/18, Adjusted Body Weight: Kg Vancomycin Vancomycin indication: LEFT DIABETIC FOOT ULCER WITH ABSCESS/POSS OSTEO Vancomycin Target Ranges: 15-20 mcg/ml Vancomycin Load Y/N: Yes Load Dose Date Time Vancomycin Load Dose: 1000MG / 1000MG Date: 08-18 Time: 20990 Vancomycin Dose Date: 08/20/18. Current Vancomycin Dose: [1000mg q18h] Intermittent Dosing?: No Labs Micro Microbiology 08/19/18 Gram Stain - Final, Complete 08/19/18 Wound Culture - Final, Complete Staphylococcus Aureus Creatinine Clearance Date:08/19/18. Creatinine Clearance: [~34]. Assessment and Plan Maintaining Current Dose?: No Reason for dose change: Trough too high Pharmacist Note Pharmacist Note 08/21/18: Day #3 IV vancomycin therapy. Vancomycin trough level resulted at 21.7mcg/ml. We will reduce the patient's regimen from 1g IV Q12H to 1g IV Q18H for the treatment of a left diabetic foot ulcer with abscess/possible osteo - aiming for a goal trough of 15-20mcg/ml. Scr remains stable at 1.87 today from 2.09 yesterday. A follow-up vancomycin trough level has been scheduled to be drawn tomorrow at 1300. We will continue to monitor and make further dose adjustments if needed. Date: 08/19/18. Pharmacist note:Trough of 18.2 is within target range. Will continue current dosing. Will continue to monitor and make adjustments as needed. RADHA MOSS PHARMACY August 21, 2018 14:50
[2018-08-21] MEDS ORDERED: VANCOMYCIN HCL 1,000 MG, VIAL MATE ADAPTER 1 EACH in D5W 250 ML IV SCH (20:00)
[2018-08-21] MEDS: SIMVASTATIN 20 MG TAB PO SCH (21:31)
[2018-08-21 22:00] VITALS: BP 139/74
[2018-08-22] MEDS: PIPERACILLIN/TAZOBACTAM SOD 2.25 GM in D5W MINI-BAG PLUS 50 ML IV SCH ×2 (03:00→08:38)
[2018-08-22 06:00] VITALS: BP 129/62
[2018-08-22 06:09] LABS: BASO # 0.1 10^3/uL (0.0-0.2); BASO % 0.6 % (0.0-1.0); EOS # 0.7 10^3/uL (0.0-0.50); EOS % 7.8 % (0.0-3.0); HEMATOCRIT 34.7 % (42.0-52.0); HEMOGLOBIN 10.9 g/dl (13.5-17.5); LYMPH # 1.8 10^3/uL (1.5-4.5); LYMPH % 20.9 % (24.0-44.0); MEAN CORPUSCULAR HEMOGLOBIN 27.5 pg (27.0-33.0); MEAN CORPUSCULAR HGB CONC 31.4 g/dl (32.0-36.5); MEAN CORPUSCULAR VOLUME 87.4 fl (80.0-96.0); MONO # 0.8 10^3/uL (0.0-0.8); MONO % 9.5 % (0.0-5.0); NEUTROPHILS # 5.1 10^3/uL (1.8-7.7); NEUTROPHILS % 60.4 % (36.0-66.0); PLATELET COUNT, AUTOMATED 293 10^3/uL (150-450); RED BLOOD COUNT 3.97 10^6/uL (4.30-6.10); WHITE BLOOD COUNT 8.4 10^3/uL (4.0-10.0)
[2018-08-22 06:31] LABS: CALCIUM LEVEL 8.7 MG/DL (8.8-10.2); CREATININE FOR GFR 1.92 MG/DL (0.70-1.30); GLOMERULAR FILTRATION RATE 36.1 (>42); POTASSIUM SERUM 4.1 MEQ/L (3.5-5.1)
[2018-08-22] MEDS: CILOSTAZOL 100 MG TAB (PLETAL) PO SCH ×2 (08:38→21:42)
[2018-08-22] MEDS: amLODIPine 5 MG TAB PO SCH (08:38)
[2018-08-22] MEDS: FUROSEMIDE 40 MG TAB PO SCH (08:38)
[2018-08-22] MEDS: LOSARTAN 50 MG TAB PO SCH (08:38)
[2018-08-22] MEDS: CLOPIDOGREL 75 MG TAB PO SCH (08:38)
[2018-08-22] MEDS: METOPROLOL TART 25 MG TABLET PO SCH ×2 (08:39→21:43)
[2018-08-22] MEDS: HEPARIN SOD (PORCINE) 5000 UNITS/ML VIAL SC SCH (08:39)
[2018-08-22] MEDS: HumaLOG INSULIN (NovoLOG) PER UNIT SC SCH ×4 (08:39→21:42)
[2018-08-22] MEDS: LEVEMIR (INSULIN DETEMIR) 1 UNITS/0.01ML SC SCH ×2 (08:40→21:42)
[2018-08-22 14:00] VITALS: BP 133/67
--- NOTE | 2018-08-22 15:40 | IPNPDOC ---
Date Seen The patient was seen on 08/22/18. Progress Note SUBJECTIVE: Patient continues to state that he feels well and that he is better than before. No longer dizzy when he stands up. Afebrile overnight. OBJECTIVE PHYSICAL EXAMINATION: VITAL SIGNS: Please see below. General: No acute distress, Alert Eyes: Normal sclera, EOMI, KYLEIGH HENT: Atraumatic, neck supple, moist mucous membranes Cardiovascular: Normal rate, normal rhythm. No murmurs appreciated. Pulmonary: Clear to auscultation b/l, no wheezing GI: Soft, nontender, nondistended Skin: Warm and dry. MSK: L. mid foot plantar surface with open wound dry with some erythema. Neuro: CN grossly intact. No focal deficits. Strengths equal b/l. Psych: oriented x 3 LABORATORY DATA, IMAGING STUDIES, MICROBIOLOGY: Please see below. ASSESSMENT AND PLAN: 1. L. foot wound - Chronic diabetic wound normally follows with Dr. Reeves. - Transferred from [facility] for concern of osteomyelitis as patient with leukocytosis of WBC 18. Now resolved. - MRI of L. foot showed evidence of Osteo and possible small abscess. Seen by surgery, does not appear to have abscess. - c/w Abx at this time, f/u with Podiatry today. - Local dressing changes and keeping foot elevated. 2. HTN - Monitor BP - Resume home medications. 3. IDDM - Resume home insulin. - Accuchecks, ISS. 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 IVF if needed. 5. PAD - s/p bypass graft of L. leg - c/w home meds. 6. HLD - c/w home meds VS, I&O, 24H, [facility] Vital Signs/I&O Vital Signs Date Time Temp Pulse Resp B/P (MAP) Pulse Ox O2 Delivery O2 Flow Rate FiO2 08/22/18 08:39 85 129/62 08/22/18 06:00 98.3 19 95 I&O- Last 24 Hours up to 6 AM 08/22/18 05:59 Intake Total 1810 ml Balance 1810 ml Laboratory Data 24H LABS Laboratory Tests 2 08/21/18 16:44: Bedside Glucose (Misc Panel) 206H 08/21/18 20:36: Bedside Glucose (Misc Panel) 255H 08/22/18 05:33: Immature Granulocyte % (Auto) 0.8, White Blood Count 8.4, Red Blood Count 3.97L, Hemoglobin 10.9L, Hematocrit 34.7L, Mean Corpuscular Volume 87.4, Mean Corpuscular Hemoglobin 27.5, Mean Corpuscular Hemoglobin Concent 31.4L, Red Cell Distribution Width 13.2, Platelet Count 293, Neutrophils (%) (Auto) 60.4, Lymphocytes (%) (Auto) 20.9L, Monocytes (%) (Auto) 9.5H, Eosinophils (%) (Auto) 7.8H, Basophils (%) (Auto) 0.6, Neutrophils # (Auto) 5.1, Lymphocytes # (Auto) 1.8, Monocytes # (Auto) 0.8, Eosinophils # (Auto) 0.7H, Basophils # (Auto) 0.1, Nucleated Red Blood Cells % (auto) 0.0, Anion Gap 7L, Glomerular Filtration Rate 36.1L, Blood Urea Nitrogen 20H, Creatinine 1.92H, Sodium Level 140, Potassium Level 4.1, Chloride Level 107, Carbon Dioxide Level 26, Calcium Level 8.7L 08/22/18 11:28: Bedside Glucose (Misc Panel) 281H CBC/BMP Laboratory Tests 08/22/18 05:33 Red Blood Count 3.97 L, Mean Corpuscular Volume 87.4, Mean Corpuscular Hemoglobin 27.5, Mean Corpuscular Hemoglobin Concent 31.4 L, Red Cell Distribution Width 13.2, Neutrophils (%) (Auto) 60.4, Lymphocytes (%) (Auto) 20.9 L, Monocytes (%) (Auto) 9.5 H, Eosinophils (%) (Auto) 7.8 H, Basophils (%) (Auto) 0.6, Neutrophils # (Auto) 5.1, Lymphocytes # (Auto) 1.8, Monocytes # (Auto) 0.8, Eosinophils # (Auto) 0.7 H, Basophils # (Auto) 0.1, Calcium Level 8.7 L Microbiology Microbiology 08/19/18 Gram Stain - Final, Complete 08/19/18 Wound Culture - Final, Complete Staphylococcus Aureus FRANCOISE JOHNSON MD August 22, 2018 15:40
--- NOTE | 2018-08-22 18:13 | IPN ---
DATE: 08/22/2018 CHIEF COMPLAINT: Patient seen for evaluation of an infected left foot ulcer with possible osteomyelitis of his left foot. Patient states that after he left my office last week he was doing well until approximately to Tuesday time period he noticed increase in swelling of his foot and went to [facility] where he was subsequently transferred to [facility] for evaluation of his left foot. HOME MEDICATIONS: Amlodipine 5 mg by mouth at bedtime, cilostazol 100 mg twice a day, clopidogrel 75 mg daily, furosemide 40 mg daily, insulin 60 units subcu at bedtime Levemir flex touch and Humalog Lispro, losartan 50 mg by mouth daily, metoprolol 25 mg by mouth twice a day, multivitamins, simvastatin 20 mg at bedtime and vitamin D 1,000 units daily. ALLERGIES: None. PAST MEDICAL HISTORY: Insulin dependant diabetes, diabetic neuropathy, left Charcot foot deformity, peripheral artery disease, hypertension, stage 4 diabetic ulcer. PAST SURGICAL HISTORY: Artery bypass left leg. PHYSICAL EXAMINATION: Reveals an ulceration present on the plantar surface of his left foot. This ulceration measures 42 mm from medial to lateral, 46 mm from distal to proximal, 1 mm in depth. Extensor digitorum longus tendon is visible in the wound. Plantar fascia is absent. There is no abscess formation on direct palpation. Today there is no active swelling. Pedal pulses are difficult to palpate. LABS: Laboratory studies were reviewed revealing a WBC on admission of 16.9, today 8.4, CRP on admission was 10 on 08/19 it was 12.9. MRI was reviewed revealing possible osteomyelitis of the cuboid and lateral cuneiform. There is a small area of swelling under the base of the 3rd metatarsal. ASSESSMENT: Stage 4 wound plantar surface of left foot. Swelling base of the 3rd metatarsal left foot. PLAN: We discussed with the patient with his improved numbers with possible abscess at the base of the 3rd metatarsal recommend exploring the wound, possible debridement and bony biopsy of the plantar surface if there is an abscess under the 3rd metatarsal this will be drained. Patient's questions were answered and informed consent was obtained and signed by the patient. Hold Plavix, hold Heparin. Patient will be nothing by mouth after breakfast. His questions were answered.
--- NOTE | 2018-08-22 20:50 | CR ---
DATE OF CONSULTATION: 08/22/2018 I was asked to consult by Dr. Reeves for evaluation of left foot infection in a patient with a history of osteomyelitis of the left foot and Charcot arthropathy. HISTORY OF PRESENT ILLNESS: Mr. Dorman is a pleasant 77-year-old gentleman who has a history of chronic diabetic foot ulcer with Charcot arthropathy and follows up with Dr. Reeves on a weekly basis for debridement. He had been doing well and had not had an infection since March 2017. I had not seen him for over a year and half. He had debridement done about a week prior to admission and then developed some swelling and redness of the dorsal aspect of the foot with increasing discharge. He had a white count of 18,000. He was admitted to the hospital for treatment of cellulitis and possible acute osteomyelitis of the foot. The patient had a wound culture done, which was positive for methicillin sensitive Staphylococcus aureus (MSSA). Antibiotics were de-escalated to cefazolin. The patient feels much better. He was seen in consultation today with Dr. Reeves, who will be taking him to the operating room for debridement. Per notes, the erythema and cellulitis was extending into the toes and up to the mid leg. He denied having any fever or chills. No nausea, vomiting or diarrhea on admission. He has now some diarrhea with the antibiotics. MEDICATIONS ON ADMISSION: - amlodipine 5 mg daily - cilostazol 100 mg twice a day - Plavix 75 mg daily - furosemide 40 mg daily - insulin Levemir 60 units at night - Lispro sliding scale - losartan 50 mg daily - metoprolol 25 mg twice a day - multivitamin 1 tablet daily - silver sulfadiazine on the wound - simvastatin 20 mg daily - vitamin D 1000 units daily - cefazolin 2 grams IV every 8 hours Vancomycin and Zosyn were discontinued on 08/22/2018. ALLERGIES: No known drug allergies. PAST MEDICAL HISTORY: 1. Insulin dependent diabetes with diabetic neuropathy. 2. History of histoplasmosis of the eye, legally blind. 3. Peripheral vascular disease. 4. Hypertension. 5. 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 6. History of chronic osteomyelitis of the left foot with methicillin resistant Staphylococcus aureus (MRSA). PAST SURGICAL HISTORY: 1. Bypass to the left leg Dr. Freeman vascular surgery at [facility] in 2012. 2. Skin biopsies of the left arm and right knee. 3. Multiple debridements and foot surgery on the left side by Dr. Reeves. FAMILY HISTORY: Diabetes. SOCIAL HISTORY: He is . He lives with his . They have dogs. He denies smoking, alcohol or drinking. He is retired. REVIEW OF SYSTEMS: No fever or chills. No night sweats. No nausea, vomiting or diarrhea. No chest pain or shortness of breath. He walks with an offloading boot on the left side. According to his daughter, he does too much and he is supposed to be offloading but otherwise nothing relevant other than the swelling of the foot and the drainage. PHYSICAL EXAMINATION: Temperature is 98.1, pulse 88, respirations 18, blood pressure 133/67, oxygen saturation 97% on room air. He has been afebrile throughout this admission from August 19. Heart: Normal S1, S2. No murmurs, rubs or gallops. Lungs are clear. No wheezes or rhonchi. Abdomen: Soft, nontender. No hepatosplenomegaly. Back: No costovertebral angle or lumbosacral tenderness. Extremities: No clubbing, cyanosis or edema. Right foot +2 dorsalis pedis pulse, no lesions. Left foot has Charcot deformity with a large ulcer at the mid foot measuring about 6 x 7 cm with good granulation tissue. There is minimal surrounding erythema. There are two blisters at around 2 o'clock, small and measuring less than a centimeter that have serous drainage with skin maceration. Neurologic: Exam normal. Alert, oriented times three. LABORATORY DATA: White count 8.4, hemoglobin 10.9, hematocrit 34.7, platelets 293, 60% neutrophils, 21% lymphocytes, 9% monocytes. White count is down from 16.9. Sodium 140, potassium 4.1, chloride 107, bicarbonate 26, BUN 20, creatinine 1.92, glucose 285, calcium 8.7, CRP 10.8-12.9. Wound culture showed methicillin sensitive Staphylococcus aureus (MSSA). MRI of the foot done on 08/19/2018 showed acute osteomyelitis involving the cuboid and lateral cuneiform, soft tissue abscess of the proximal forefoot and cellulitis. IMPRESSION: This is a 77-year-old gentleman with a chronic diabetic foot ulcer who recently had debridement and was doing well, developed a Staphylococcus aureus infection with cellulitis. There is concern of acute osteomyelitis and abscess. The patient will be going to the operating room tomorrow with Dr. Reeves for debridement. Clinically, he has markedly improved. His white count is normal and he is feeling better. PLAN: Continue IV cefazolin 2 grams every 8 hours. Obtain CRP, ESR in the morning. We will decide on further antibiotic management depending on intraoperative findings, but I do not see any indication for IV antibiotics at this point. He may be treated with long-term oral antibiotics if there is evidence of osteomyelitis or may also benefit from a couple of doses of dalbavancin, if his insurance if we can get prior authorization at a dose of 1.5 grams at day one and day number 8 and that should fully cover a treatment course for osteomyelitis if there is evidence of bone infection intraoperatively. Please send intraoperative cultures; aerobic, anaerobic. The case has been discussed with Dr. Reeves.
[2018-08-22] MEDS: SIMVASTATIN 20 MG TAB PO SCH (21:42)
[2018-08-22 22:00] VITALS: BP 136/65
[2018-08-23 06:00] VITALS: BP 135/68
[2018-08-23 06:59] LABS: BASO # 0.1 10^3/uL (0.0-0.2); BASO % 0.5 % (0.0-1.0); EOS # 0.9 10^3/uL (0.0-0.50); EOS % 7.7 % (0.0-3.0); HEMATOCRIT 34.8 % (42.0-52.0); HEMOGLOBIN 11.2 g/dl (13.5-17.5); LYMPH # 1.9 10^3/uL (1.5-4.5); LYMPH % 16.3 % (24.0-44.0); MEAN CORPUSCULAR HEMOGLOBIN 28.3 pg (27.0-33.0); MEAN CORPUSCULAR HGB CONC 32.2 g/dl (32.0-36.5); MEAN CORPUSCULAR VOLUME 87.9 fl (80.0-96.0); MONO # 1.1 10^3/uL (0.0-0.8); MONO % 9.9 % (0.0-5.0); NEUTROPHILS # 7.4 10^3/uL (1.8-7.7); NEUTROPHILS % 64.9 % (36.0-66.0); PLATELET COUNT, AUTOMATED 286 10^3/uL (150-450); RED BLOOD COUNT 3.96 10^6/uL (4.30-6.10); WHITE BLOOD COUNT 11.4 10^3/uL (4.0-10.0)
[2018-08-23 07:26] LABS: C REACTIVE PROTEIN QUANTITATIV 4.03 MG/DL (0.00-0.30); CALCIUM LEVEL 8.8 MG/DL (8.8-10.2); CREATININE FOR GFR 2.02 MG/DL (0.70-1.30); GLOMERULAR FILTRATION RATE 34.1 (>42); POTASSIUM SERUM 3.8 MEQ/L (3.5-5.1)
[2018-08-23] MEDS: CLOPIDOGREL 75 MG TAB PO SCH (07:40)
[2018-08-23 07:51] LABS: ERYTHROCYTE SEDIMENTATION RATE 82 mm/hr (0-20)
[2018-08-23] MEDS ORDERED: LEVEMIR (INSULIN DETEMIR) 1 UNITS/0.01ML SC ONE (08:00)
[2018-08-23] MEDS: FUROSEMIDE 40 MG TAB PO SCH (08:10)
[2018-08-23] MEDS: HumaLOG INSULIN (NovoLOG) PER UNIT SC SCH ×4 (08:10→21:00)
[2018-08-23] MEDS: CILOSTAZOL 100 MG TAB (PLETAL) PO SCH ×2 (08:10→22:54)
[2018-08-23] MEDS: LOSARTAN 50 MG TAB PO SCH (08:11)
[2018-08-23] MEDS: amLODIPine 5 MG TAB PO SCH (08:11)
[2018-08-23] MEDS: METOPROLOL TART 25 MG TABLET PO SCH ×2 (08:11→22:55)
[2018-08-23] MEDS ORDERED: ROPIvacaine 0.5% 30 ML INJECTION (J2795 PER 1MG) As Ordered ONE (13:09)
[2018-08-23] MEDS ORDERED: VANCOMYCIN 1000 MG/20 ML VIAL (J3370) As Ordered ONE (13:09)
[2018-08-23] MEDS ORDERED: LIDOCAINE 2% MDV 20 ML VIAL As Ordered ONE (13:09)
[2018-08-23 14:00] VITALS: BP 135/68
--- NOTE | 2018-08-23 14:45 | IPNPDOC ---
Subjective Date Seen The patient was seen on 08/23/18. Subjective Chief Complaint/HPI Patient seen and examined at the bedside. No acute overnight events noted. Patient scheduled for surgical intervention with podiatry this afternoon. Objective Physical Examination General Exam: Positive: Alert, Cooperative, No Acute Distress Eye Exam: Positive: PERRLA, Conjunctiva & lids normal, EOMI; Negative: Sclera icteric ENT Exam: Positive: Atraumatic, Mucous membr. moist/pink, Pharynx Normal Neck Exam: Positive: Supple; Negative: JVD, thyromegaly Chest Exam: Positive: Clear to auscultation, Normal air movement Heart Exam: Positive: Rate Normal, Regular Rhythm, Normal S1, Normal S2; Negative: Murmurs, Rubs Abdomen Exam: Positive: Normal bowel sounds, Soft; Negative: Tenderness, Hepatospenomegaly Skin Exam: Positive: Other skin issue (5cm x 4cm planter ulcer in the left foot with clean base, muscles exposed there with surrounding thick skin and inflamation. No necrotic tissue seen. ) Psych Exam: Positive: Oriented x 3 Assessment /Plan Plan/VTE VTE Prophylaxis Ordered?: Yes Plan Left Foot Diabetic Wound MRI of L. foot showed evidence of Osteo and possible small abscess. Seen by surgery, does not appear to have abscess as per Dr. Reeves who follows the patient as an outpatient Patient scheduled for surgical intervention as per Podiatry today c/w Abx at this time--ID on board, will follow up with their recommendations Cont Local dressing changes and keeping foot elevated. 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 leg c/w home meds. HLD Cont Statin VS, I&O, 24H, Fishbone Vital Signs/I&O Vital Signs Date Time Temp Pulse Resp B/P (MAP) Pulse Ox O2 Delivery O2 Flow Rate FiO2 08/23/18 08:11 135/68 08/23/18 06:00 98.3 89 18 97 I&O- Last 24 Hours up to 6 AM 08/23/18 06:00 Intake Total 750 ml Output Total 0 ml Balance 750 ml Laboratory Data 24H LABS Laboratory Tests 2 08/22/18 16:43: Bedside Glucose (Misc Panel) 275H 08/22/18 20:41: Bedside Glucose (Misc Panel) 352H 08/23/18 06:44: Immature Granulocyte % (Auto) 0.7, White Blood Count 11.4H, Red Blood Count 3.96L, Hemoglobin 11.2L, Hematocrit 34.8L, Mean Corpuscular Volume 87.9, Mean Corpuscular Hemoglobin 28.3, Mean Corpuscular Hemoglobin Concent 32.2, Red Cell Distribution Width 13.2, Platelet Count 286, Neutrophils (%) (Auto) 64.9, Lymphocytes (%) (Auto) 16.3L, Monocytes (%) (Auto) 9.9H, Eosinophils (%) (Auto) 7.7H, Basophils (%) (Auto) 0.5, Neutrophils # (Auto) 7.4, Lymphocytes # (Auto) 1.9, Monocytes # (Auto) 1.1H, Eosinophils # (Auto) 0.9H, Basophils # (Auto) 0.1, Nucleated Red Blood Cells % (auto) 0.0, Erythrocyte Sedimentation Rate 82H, Anion Gap 7L, Glomerular Filtration Rate 34.1L, Blood Urea Nitrogen 20H, Creatinine 2.02H, Sodium Level 141, Potassium Level 3.8, Chloride Level 106, Carbon Dioxide Level 28, Calcium Level 8.8, C-Reactive Protein, Quantitative 4.03H 08/23/18 12:22: Bedside Glucose (Misc Panel) 230H CBC/BMP Laboratory Tests 08/23/18 06:44 Red Blood Count 3.96 L, Mean Corpuscular Volume 87.9, Mean Corpuscular Hemoglobin 28.3, Mean Corpuscular Hemoglobin Concent 32.2, Red Cell Distribution Width 13.2, Neutrophils (%) (Auto) 64.9, Lymphocytes (%) (Auto) 16.3 L, Monocytes (%) (Auto) 9.9 H, Eosinophils (%) (Auto) 7.7 H, Basophils (%) (Auto) 0.5, Neutrophils # (Auto) 7.4, Lymphocytes # (Auto) 1.9, Monocytes # (Auto) 1.1 H, Eosinophils # (Auto) 0.9 H, Basophils # (Auto) 0.1, Calcium Level 8.8 Microbiology Microbiology 08/19/18 Gram Stain - Final, Complete 08/19/18 Wound Culture - Final, Complete Staphylococcus Aureus IRENE PENA MD August 23, 2018 14:45
[2018-08-23 18:45] VITALS: BP 142/68
[2018-08-23] MEDS ORDERED: PROPOFOL 500 MG/50 ML VIAL As Ordered ONE (19:01)
[2018-08-23] MEDS ORDERED: PROPOFOL 200 MG/20 ML VIAL As Ordered ONE (19:01)
[2018-08-23] MEDS ORDERED: LIDOCAINE 2% INJ 100 MG/5 ML SDV (FOR ANES.) As Ordered ONE (19:01)
[2018-08-23] MEDS ORDERED: ONDANSETRON 4MG/2ML VIAL (J2405) As Ordered ONE (19:01)
[2018-08-23] MEDS ORDERED: fentaNYL 100 MCG/2 ML INJECTION (J3010) As Ordered ONE (19:02)
[2018-08-23] MEDS ORDERED: MIDAZOLAM INJ 2 MG/2 ML VIAL (J2250) As Ordered ONE (19:02)
[2018-08-23] MEDS ORDERED: LR 1,000 ML IV SCH (20:45)
[2018-08-23] MEDS ORDERED: METOCLOPRAMIDE INJ 10MG/2ML VIAL (J2765) IV PRN (20:45)
[2018-08-23] MEDS ORDERED: ONDANSETRON 4MG/2ML VIAL (J2405) IV PRN (20:45)
[2018-08-23] MEDS ORDERED: fentaNYL 100 MCG/2 ML INJECTION (J3010) IV PRN (20:45)
--- NOTE | 2018-08-23 21:10 | RO ---
DATE OF PROCEDURE: 08/23/2018 PREOPERATIVE DIAGNOSIS: Infected left foot wound. POSTOPERATIVE DIAGNOSIS: PROCEDURES PERFORMED: Incisional debridement including bone with bone culture plantar aspect left foot and exploration of possible abscess third and fourth metatarsal base left foot. SURGEON: Kennedy Reeves DPM [employer] DEPARTMENT: None. ANESTHESIA: Local monitored anesthesia care (MAC). ESTIMATED BLOOD LOSS: 10 mL IRRIGATION: Dilute vancomycin solution. 3 liter low pressure pulse lavage system. DESCRIPTION OF OPERATION: On 08/23/2018, this 77-year-old male was taken from his hospital room to the operating room and placed on the operating room table in the supine position. Following induction of IV sedation, local and regional anesthesia, attention was directed to the patient's left foot. There was an ulceration present on the plantar surface of the left foot measuring 4.3 cm from medial to lateral and 4.8 cm from distal to proximal measuring approximately 3 mm in depth. There was also a separate region with two sinus tracts under the plantar aspect of the third metatarsal base. Attention was directed to the larger ulcer where the flexor digitorum longus tendon was visualized. The tendon was retracted in a medial direction and the tendon sheath was opened in that location. Dissection was carried through this level straight to bone. Retraction was performed medial to lateral, creating a flap just adjacent to the bone protecting the neurovascular structures in the area namely the plantar arch. A small area of irregularity was noted in this area in the location of the lateral cuneiform and medial cuneiform and the navicular. Utilizing an osteotome and mallet the irregular bone was osteotomized. The bone was firm. No signs of osteomyelitis. This was sent to culture for aerobic and anaerobic examination/culture. The wound was then lavaged with 3 liters of dilute vancomycin solution with low pressure pulse lavage system and packed with iodoform gauze deep utilizing a Dawn dermal curette. The surrounding area was debrided of hyperkeratotic and necrotic tissue. Ulcer post debridement measured 4.5 from medial to lateral, 5 cm from distal to proximal and 1.5 cm in depth. Attention was then directed to two small sinus tracts. They were explored deeply and opened throughout the area where the wound could be explored. This was approximately 1.5 cm in depth. There was no active purulence in that location. It was lavaged with dilute vancomycin solution and iodoform gauze was placed in both sinus tracts. This did not extend to bone. Dry sterile dressing was then applied. The patient having apparently tolerated the surgical procedure well was taken from the OR to the recovery room for further monitoring by the anesthesia department.
[2018-08-23 22:00] VITALS: BP 147/76
[2018-08-23 22:30] VITALS: BP 152/77
[2018-08-23] MEDS: SIMVASTATIN 20 MG TAB PO SCH (22:54)
[2018-08-23] MEDS: LEVEMIR (INSULIN DETEMIR) 1 UNITS/0.01ML SC SCH (22:55)
[2018-08-23 23:30] VITALS: BP 143/64
[2018-08-24] VITALS (7 sets, daily range): BP systolic 124–161; BP diastolic 61–70
--- NOTE | 2018-08-24 03:49 | REPVR ---
EXAM: XR Chest, 1 View EXAM DATE/TIME: 08/24/2018 3:08 AM CLINICAL HISTORY: 77 years old, male; Signs and symptoms; Cough; Additional info: Cough following surgery TECHNIQUE: Imaging protocol: XR of the chest, 1 view. COMPARISON: CR Chest, 2 view PA, Lat 11/13/2012 10:16 AM FINDINGS: Lungs: No consolidation. Pleural space: No pleural effusion. Heart/Mediastinum: Heart size is increased since the prior comparison. Vasculature: Ectatic thoracic aorta. Bones/joints: Degenerative change of thoracic spine. IMPRESSION: Cardiomegaly. Electronically signed by: Cherelle Ewing On 08/24/2018 03:49:14 AM
[2018-08-24] MEDS: FLUTICASONE PROP 0.05% NASAL SPRAY 16 GM (FLONASE) NARES SCH ×3 (04:02→11:02)
[2018-08-24] MEDS: BENZONATATE 100 MG CAP PO SCH ×3 (04:03→21:36)
[2018-08-24] MEDS: HEPARIN SOD (PORCINE) 5000 UNITS/ML VIAL SC SCH ×2 (05:24→18:47)
[2018-08-24 06:03] LABS: BASO # 0.1 10^3/uL (0.0-0.2); BASO % 0.5 % (0.0-1.0); EOS # 0.8 10^3/uL (0.0-0.50); EOS % 5.6 % (0.0-3.0); HEMATOCRIT 35.8 % (42.0-52.0); HEMOGLOBIN 11.2 g/dl (13.5-17.5); LYMPH # 1.5 10^3/uL (1.5-4.5); LYMPH % 10.6 % (24.0-44.0); MEAN CORPUSCULAR HEMOGLOBIN 27.9 pg (27.0-33.0); MEAN CORPUSCULAR HGB CONC 31.3 g/dl (32.0-36.5); MEAN CORPUSCULAR VOLUME 89.3 fl (80.0-96.0); MONO # 1.1 10^3/uL (0.0-0.8); MONO % 7.9 % (0.0-5.0); NEUTROPHILS # 10.7 10^3/uL (1.8-7.7); NEUTROPHILS % 74.7 % (36.0-66.0); PLATELET COUNT, AUTOMATED 290 10^3/uL (150-450); RED BLOOD COUNT 4.01 10^6/uL (4.30-6.10); WHITE BLOOD COUNT 14.3 10^3/uL (4.0-10.0)
[2018-08-24 06:32] LABS: CALCIUM LEVEL 8.4 MG/DL (8.8-10.2); CREATININE FOR GFR 2.02 MG/DL (0.70-1.30); GLOMERULAR FILTRATION RATE 34.1 (>42); POTASSIUM SERUM 3.9 MEQ/L (3.5-5.1)
[2018-08-24] MEDS: ONDANSETRON 4MG/2ML VIAL (J2405) IV PRN (09:07)
[2018-08-24] MEDS: HumaLOG INSULIN (NovoLOG) PER UNIT SC SCH ×4 (09:10→21:00)
[2018-08-24] MEDS: LEVEMIR (INSULIN DETEMIR) 1 UNITS/0.01ML SC SCH ×2 (10:53→21:36)
[2018-08-24] MEDS: CLOPIDOGREL 75 MG TAB PO SCH (10:54)
[2018-08-24] MEDS: CILOSTAZOL 100 MG TAB (PLETAL) PO SCH ×2 (10:54→21:35)
[2018-08-24] MEDS: FUROSEMIDE 40 MG TAB PO SCH (10:54)
[2018-08-24] MEDS: amLODIPine 5 MG TAB PO SCH (10:54)
[2018-08-24] MEDS: LOSARTAN 50 MG TAB PO SCH (10:54)
[2018-08-24] MEDS: METOPROLOL TART 25 MG TABLET PO SCH ×2 (10:55→21:36)
[2018-08-24] MEDS: ACETAMINOPHEN TAB 650MG DOSE (2X325MG) PO PRN (13:55)
--- NOTE | 2018-08-24 14:24 | IPNPDOC ---
Subjective Date Seen The patient was seen on 08/24/18. Subjective Chief Complaint/HPI Patient seen and examined at bedside. Reports that he is feeling nauseous this morning, and thinks it is due to the anesthesia that he received yesterday. Denies any vomiting, and notes that he has been able to drink milan aayush this morning. Denies any complaints of abdominal pain. Objective Physical Examination General Exam: Positive: Alert, Cooperative, No Acute Distress Eye Exam: Positive: PERRLA, Conjunctiva & lids normal, EOMI; Negative: Sclera icteric ENT Exam: Positive: Atraumatic, Mucous membr. moist/pink, Pharynx Normal Neck Exam: Positive: Supple; Negative: JVD, thyromegaly Chest Exam: Positive: Clear to auscultation, Normal air movement Heart Exam: Positive: Rate Normal, Regular Rhythm, Normal S1, Normal S2; Negative: Murmurs, Rubs Abdomen Exam: Positive: Normal bowel sounds, Soft; Negative: Tenderness, Hepatospenomegaly Skin Exam: Positive: Other skin issue (left foot wrapped in surgical dressing.) Psych Exam: Positive: Oriented x 3 Assessment /Plan Plan/VTE VTE Prophylaxis Ordered?: Yes Plan Left Foot Diabetic Wound MRI of L. foot showed evidence of Osteo and possible small abscess s/p Surgical Debridement by Dr. Reeves of Podiatry on 08/23/18--no evidence of Osteo/Abscess formation noted as per Report, cultures pending c/w Abx at this time--ID on board, will follow up with their recommendations Cont Local dressing changes and keeping foot elevated. 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 leg c/w home meds. HLD Cont Statin DVT Prophylaxis Heparin SC VS, I&O, 24H, Fishbone Vital Signs/I&O Vital Signs Date Time Temp Pulse Resp B/P (MAP) Pulse Ox O2 Delivery O2 Flow Rate FiO2 08/24/18 14:00 98.6 92 20 124/62 (82) 93 08/24/18 13:30 2.0 I&O- Last 24 Hours up to 6 AM 08/24/18 05:59 Intake Total 1750 ml Output Total 0 ml Balance 1750 ml Laboratory Data 24H LABS Laboratory Tests 2 08/23/18 16:45: Bedside Glucose (Misc Panel) 204H 08/23/18 20:30: Bedside Glucose (Misc Panel) 192H 08/23/18 22:46: Bedside Glucose (Misc Panel) 215H 08/24/18 05:29: Immature Granulocyte % (Auto) 0.7, White Blood Count 14.3H, Red Blood Count 4.01L, Hemoglobin 11.2L, Hematocrit 35.8L, Mean Corpuscular Volume 89.3, Mean Corpuscular Hemoglobin 27.9, Mean Corpuscular Hemoglobin Concent 31.3L, Red Cell Distribution Width 13.4, Platelet Count 290, Neutrophils (%) (Auto) 74.7H, Lymphocytes (%) (Auto) 10.6L, Monocytes (%) (Auto) 7.9H, Eosinophils (%) (Auto) 5.6H, Basophils (%) (Auto) 0.5, Neutrophils # (Auto) 10.7H, Lymphocytes # (Auto) 1.5, Monocytes # (Auto) 1.1H, Eosinophils # (Auto) 0.8H, Basophils # (Auto) 0.1, Nucleated Red Blood Cells % (auto) 0.0, Anion Gap 6L, Glomerular Filtration Rate 34.1L, Blood Urea Nitrogen 25H, Creatinine 2.02H, Sodium Level 141, Potassium Level 3.9, Chloride Level 104, Carbon Dioxide Level 31, Calcium Level 8.4L 08/24/18 11:11: Bedside Glucose (Misc Panel) 125H CBC/BMP Laboratory Tests 08/24/18 05:29 Red Blood Count 4.01 L, Mean Corpuscular Volume 89.3, Mean Corpuscular Hemoglobin 27.9, Mean Corpuscular Hemoglobin Concent 31.3 L, Red Cell Distribution Width 13.4, Neutrophils (%) (Auto) 74.7 H, Lymphocytes (%) (Auto) 10.6 L, Monocytes (%) (Auto) 7.9 H, Eosinophils (%) (Auto) 5.6 H, Basophils (%) (Auto) 0.5, Neutrophils # (Auto) 10.7 H, Lymphocytes # (Auto) 1.5, Monocytes # (Auto) 1.1 H, Eosinophils # (Auto) 0.8 H, Basophils # (Auto) 0.1, Calcium Level 8.4 L Microbiology Microbiology 08/23/18 Bacterial Culture, Worksheet Pending 08/23/18 Anaerobic Culture, Worksheet Pending 08/19/18 Gram Stain - Final, Complete 08/19/18 Wound Culture - Final, Complete Staphylococcus Aureus IRENE PENA MD August 24, 2018 14:24
[2018-08-24] MEDS: SIMVASTATIN 20 MG TAB PO SCH (21:36)
[2018-08-25] MEDS: HEPARIN SOD (PORCINE) 5000 UNITS/ML VIAL SC SCH ×2 (05:36→17:43)
[2018-08-25 06:00] VITALS: BP 115/65
[2018-08-25 06:30] LABS: BASO # 0.1 10^3/uL (0.0-0.2); BASO % 0.5 % (0.0-1.0); EOS # 0.8 10^3/uL (0.0-0.50); HEMATOCRIT 34.9 % (42.0-52.0); HEMOGLOBIN 10.9 g/dl (13.5-17.5); LYMPH % 12.4 % (24.0-44.0); MEAN CORPUSCULAR HEMOGLOBIN 28.1 pg (27.0-33.0); MEAN CORPUSCULAR HGB CONC 31.2 g/dl (32.0-36.5); MEAN CORPUSCULAR VOLUME 89.9 fl (80.0-96.0); MONO # 1.4 10^3/uL (0.0-0.8); MONO % 8.6 % (0.0-5.0); NEUTROPHILS # 11.9 10^3/uL (1.8-7.7); NEUTROPHILS % 72.9 % (36.0-66.0); PLATELET COUNT, AUTOMATED 274 10^3/uL (150-450); RED BLOOD COUNT 3.88 10^6/uL (4.30-6.10); WHITE BLOOD COUNT 16.3 10^3/uL (4.0-10.0)
[2018-08-25 06:46] LABS: CALCIUM LEVEL 8.8 MG/DL (8.8-10.2); CREATININE FOR GFR 2.37 MG/DL (0.70-1.30); GLOMERULAR FILTRATION RATE 28.3 (>42); POTASSIUM SERUM 3.8 MEQ/L (3.5-5.1)
[2018-08-25] MEDS: HumaLOG INSULIN (NovoLOG) PER UNIT SC SCH ×4 (08:28→21:00)
[2018-08-25] MEDS: LEVEMIR (INSULIN DETEMIR) 1 UNITS/0.01ML SC SCH ×2 (08:28→21:30)
[2018-08-25] MEDS: CLOPIDOGREL 75 MG TAB PO SCH (08:29)
[2018-08-25] MEDS: BENZONATATE 100 MG CAP PO SCH ×2 (08:29→21:29)
[2018-08-25] MEDS: METOPROLOL TART 25 MG TABLET PO SCH ×2 (08:29→21:29)
[2018-08-25] MEDS: amLODIPine 5 MG TAB PO SCH (08:30)
[2018-08-25] MEDS: FLUTICASONE PROP 0.05% NASAL SPRAY 16 GM (FLONASE) NARES SCH (08:33)
[2018-08-25 09:19] LABS: C REACTIVE PROTEIN QUANTITATIV 14.8 MG/DL (0.00-0.30)
[2018-08-25] MEDS: CILOSTAZOL 100 MG TAB (PLETAL) PO SCH ×2 (11:04→21:29)
--- NOTE | 2018-08-25 11:28 | IPNPDOC ---
Subjective Date Seen The patient was seen on 08/25/18. Subjective Chief Complaint/HPI Patient seen and examined at the bedside this point. He reports that he is feeling much better today and is no longer nauseous. He tells me that he was able to eat all of his breakfast this morning. Objective Physical Examination General Exam: Positive: Alert, Cooperative, No Acute Distress Eye Exam: Positive: PERRLA, Conjunctiva & lids normal, EOMI; Negative: Sclera icteric ENT Exam: Positive: Atraumatic, Mucous membr. moist/pink, Pharynx Normal Neck Exam: Positive: Supple; Negative: JVD, thyromegaly Chest Exam: Positive: Clear to auscultation, Normal air movement Heart Exam: Positive: Rate Normal, Regular Rhythm, Normal S1, Normal S2; Negative: Murmurs, Rubs Abdomen Exam: Positive: Normal bowel sounds, Soft; Negative: Tenderness, Hepatospenomegaly Skin Exam: Positive: Other skin issue (left foot wrapped in surgical dressing.) Psych Exam: Positive: Oriented x 3 Assessment /Plan Plan/VTE VTE Prophylaxis Ordered?: Yes Plan Left Foot Diabetic Wound MRI of L. foot showed evidence of Osteo and possible small abscess s/p Surgical Debridement by Dr. Reeves of Podiatry on 08/23/18--no evidence of Osteo/Abscess formation noted as per Report, cultures pending c/w Abx at this time--ID on board, will follow up with their recommendations Cont Local dressing changes and keeping foot elevated. CKD Stage III-IV Serum Cr elevated compared to yesterday, likely 2/2 decreased PO Intake Will hold Losartan, Lasix today PO Intake encouraged Will follow up with BMP in the AM HTN Cont Norvasc IDDM Cont Insulin as ordered PAD s/p bypass graft of L. leg c/w home meds. HLD Cont Statin DVT Prophylaxis Heparin SC VS, I&O, 24H, Fishbone Vital Signs/I&O Vital Signs Date Time Temp Pulse Resp B/P (MAP) Pulse Ox O2 Delivery O2 Flow Rate FiO2 08/25/18 08:29 87 115/65 08/25/18 06:00 98.0 20 92 2.0 I&O- Last 24 Hours up to 6 AM 08/25/18 05:59 Intake Total 630 ml Output Total 0 ml Balance 630 ml Laboratory Data 24H LABS Laboratory Tests 2 08/24/18 16:14: Bedside Glucose (Misc Panel) 128H 08/24/18 21:07: Bedside Glucose (Misc Panel) 160H 08/25/18 05:49: Immature Granulocyte % (Auto) 0.6, White Blood Count 16.3H, Red Blood Count 3.88 L, Hemoglobin 10.9L, Hematocrit 34.9L, Mean Corpuscular Volume 89.9, Mean Corpuscular Hemoglobin 28.1, Mean Corpuscular Hemoglobin Concent 31.2L, Red Cell Distribution Width 13.9, Platelet Count 274, Neutrophils (%) (Auto) 72.9H, Lymphocytes (%) (Auto) 12.4L, Monocytes (%) (Auto) 8.6H, Eosinophils (%) (Auto) 5.0H, Basophils (%) (Auto) 0.5, Neutrophils # (Auto) 11.9H, Lymphocytes # (Auto) 2.0, Monocytes # (Auto) 1.4H, Eosinophils # (Auto) 0.8H, Basophils # (Auto) 0.1, Nucleated Red Blood Cells % (auto) 0.0, Anion Gap 7L, Glomerular Filtration Rate 28.3L, Blood Urea Nitrogen 31H, Creatinine 2.37H, Sodium Level 143, Potassium Level 3.8, Chloride Level 107, Carbon Dioxide Level 29, Calcium Level 8.8, C- Reactive Protein, Quantitative 14.80H CBC/BMP Laboratory Tests 08/25/18 05:49 Red Blood Count 3.88 L, Mean Corpuscular Volume 89.9, Mean Corpuscular Hemoglobin 28.1, Mean Corpuscular Hemoglobin Concent 31.2 L, Red Cell Distribution Width 13.9, Neutrophils (%) (Auto) 72.9 H, Lymphocytes (%) (Auto) 12.4 L, Monocytes (%) (Auto) 8.6 H, Eosinophils (%) (Auto) 5.0 H, Basophils (%) (Auto) 0.5, Neutrophils # (Auto) 11.9 H, Lymphocytes # (Auto) 2.0, Monocytes # (Auto) 1.4 H, Eosinophils # (Auto) 0.8 H, Basophils # (Auto) 0.1, Calcium Level 8.8 Microbiology Microbiology 08/23/18 Bacterial Culture, Worksheet Pending 08/23/18 Anaerobic Culture, Worksheet Pending 08/19/18 Gram Stain - Final, Complete 08/19/18 Wound Culture - Final, Complete Staphylococcus Aureus IRENE PENA MD August 25, 2018 11:28
[2018-08-25 15:15] VITALS: BP 130/56
--- NOTE | 2018-08-25 15:32 | REP ---
Clinical: Status post bone debridement. Technique: AP, lateral, bilateral oblique views of the left foot. Comparison: 11/08/2012 Findings: Osteopenia and advanced degenerative changes are appreciated. Osseous debridement in the midfoot distorts normal architecture and anatomy. Surrounding swelling is appreciated. Impression: Status post bone debridement involving the midfoot. Underlying osteopenia and advanced degenerative changes consistent with chronic Charcot joint . Electronically Signed by Raghav Sumner MD 08/25/2018 03:24 P
--- NOTE | 2018-08-25 16:26 | IPN ---
DATE: 08/25/2018 Colton has no complaints. He is anxious to go home. Yesterday he was not feeling the greatest. Postoperatively he was having some nausea and did not eat much until last night and this morning he feels better. He has no nausea, vomiting or diarrhea today. No fever or chills, but concerning is that his white count has increased to 16.3. Hemoglobin 10.9, hematocrit 34.9, platelets are 74. Sodium 143, potassium 3.8, chloride 107, bicarb 29, BUN 31, creatinine 2.37, which also has steadily increased. CRP is 14.8, which could the postoperative. Bacterial cultures from operative sites are pending. PHYSICAL EXAMINATION: Temperature is 98, pulse 87, respirations 20, blood pressure 115/65, O2 sat 92% on 2 liters nasal cannula. Heart: Normal S1, S2. No murmurs. Lungs are clear. Abdomen: Obese, soft, nontender. Extremities: No edema. Right foot wound was examined. He has an open ulcer. The ulcer measures about 7 x 6 cm and it was cut in the middle deep to the tissue down to the bone. The packing was removed. It was bloody discharge. There is no purulence. There are two small sinus tracts around 2 o'clock that also were packed. There is no purulence. There is some skin maceration. No tenderness or warmth. IMPRESSION 1. Complicated skin and soft tissue infection in the setting of a diabetic foot ulcer. The patient had wound cultures that were positive for MSSA. Antibiotics were switched to cefazolin on 08/22 and since his switch to cefazolin his white count has trended up to 16.3. I am concerned that there may be underlying pathogens that have not been covered with cefazolin, that were previously covered with vancomycin and Zosyn on admission. 2. Charcot arthropathy of the right foot with diabetic foot ulcer. PLAN Will call the microbiology lab and see what the preliminary cultures on his foot are and may consider switching him back to broad-spectrum antibiotic until results of final cultures are available.
--- NOTE | 2018-08-25 16:46 | IPN ---
DATE: 08/25/2018 TIME: 1:46 p.m. CHIEF COMPLAINT: The patient is seen at bedside for evaluation of a left foot wound. The patient states that he had nausea last night, but he is not nauseous at the moment. He states that he had one other prior bout of nausea. The patient states that he had only one course of loose stool, otherwise unremarkable. The patient states that he feels good. He has no shortness of breath or chest pain. LABORATORY STUDIES: Reviewed and revealing a recent upward trend of his white blood cell count, starting to trend upward on 08/23/2018 at 11.4 and today was 16.3. His ESR on 08/23/2018 was 82. His C-reactive protein on 08/23/2018 was 4.03 and today is 14.8. His dressing was removed. There is no discharge from the two small sinus tracts inferior to the third and fourth metatarsal base. The ulcer on the plantar surface of the mid foot has no discharge, no foul odor. Packing was removed without discharge. Good granulation tissue at the base is noted as well. ASSESSMENT: 1. Status post debridement with bone biopsy of the left foot. PLAN: Since the patient has an upward trending white blood cell count, as well as C-reactive protein, I am questioning an infection at another location versus infected foot ulcer that is not presently being treated by his present course of antibiotics. His bone culture is still pending. I ordered x-rays, two views, of the patient's left foot.
[2018-08-25] MEDS: SIMVASTATIN 20 MG TAB PO SCH (21:29)
[2018-08-25 22:00] VITALS: BP 146/64
[2018-08-26 06:00] VITALS: BP 129/66
[2018-08-26] MEDS: HEPARIN SOD (PORCINE) 5000 UNITS/ML VIAL SC SCH ×2 (06:06→18:15)
[2018-08-26] MEDS: ONDANSETRON 4MG/2ML VIAL (J2405) IV PRN (06:06)
[2018-08-26] MEDS: HumaLOG INSULIN (NovoLOG) PER UNIT SC SCH ×4 (08:13→20:54)
[2018-08-26] MEDS: CILOSTAZOL 100 MG TAB (PLETAL) PO SCH ×2 (10:04→20:52)
[2018-08-26] MEDS: CLOPIDOGREL 75 MG TAB PO SCH (10:05)
[2018-08-26] MEDS: amLODIPine 5 MG TAB PO SCH (10:05)
[2018-08-26] MEDS: BENZONATATE 100 MG CAP PO SCH ×2 (10:06→20:52)
[2018-08-26] MEDS: METOPROLOL TART 25 MG TABLET PO SCH ×2 (10:06→20:53)
[2018-08-26] MEDS: FLUTICASONE PROP 0.05% NASAL SPRAY 16 GM (FLONASE) NARES SCH (10:09)
[2018-08-26] MEDS: LEVEMIR (INSULIN DETEMIR) 1 UNITS/0.01ML SC SCH ×2 (10:09→20:53)
[2018-08-26 10:38] LABS: HEMATOCRIT 33.5 % (42.0-52.0); HEMOGLOBIN 10.8 g/dl (13.5-17.5); MEAN CORPUSCULAR HEMOGLOBIN 29.3 pg (27.0-33.0); MEAN CORPUSCULAR HGB CONC 32.2 g/dl (32.0-36.5); PLATELET COUNT, AUTOMATED 248 10^3/uL (150-450); RED BLOOD COUNT 3.68 10^6/uL (4.30-6.10); WHITE BLOOD COUNT 14.3 10^3/uL (4.0-10.0)
[2018-08-26 11:05] LABS: C REACTIVE PROTEIN QUANTITATIV 17.6 MG/DL (0.00-0.30); CALCIUM LEVEL 7.9 MG/DL (8.8-10.2); CREATININE FOR GFR 2.09 MG/DL (0.70-1.30); GLOMERULAR FILTRATION RATE 32.8 (>42); MAGNESIUM LEVEL 2.2 MG/DL (1.8-2.4); POTASSIUM SERUM 3.7 MEQ/L (3.5-5.1)
[2018-08-26 11:46] VITALS: BP 137/60
[2018-08-26 14:00] VITALS: BP 112/64
--- NOTE | 2018-08-26 14:09 | IPNPDOC ---
Subjective Date Seen The patient was seen on 08/26/18. Subjective Chief Complaint/HPI Patient seen and examined at the bedside. No acute events noted overnight. Patient does not endorse any complaints of pain or discomfort. Objective Physical Examination General Exam: Positive: Alert, Cooperative, No Acute Distress Eye Exam: Positive: PERRLA, Conjunctiva & lids normal, EOMI; Negative: Sclera icteric ENT Exam: Positive: Atraumatic, Mucous membr. moist/pink, Pharynx Normal Neck Exam: Positive: Supple; Negative: JVD, thyromegaly Chest Exam: Positive: Clear to auscultation, Normal air movement Heart Exam: Positive: Rate Normal, Regular Rhythm, Normal S1, Normal S2; Negative: Murmurs, Rubs Abdomen Exam: Positive: Normal bowel sounds, Soft; Negative: Tenderness, Hepatospenomegaly Skin Exam: Positive: Other skin issue (left foot wrapped in surgical dressing.) Psych Exam: Positive: Oriented x 3 Assessment /Plan Plan/VTE VTE Prophylaxis Ordered?: Yes Plan Left Foot Diabetic Wound MRI of L. foot showed evidence of Osteo and possible small abscess s/p Surgical Debridement by Dr. 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 leg c/w home meds. HLD Cont Statin DVT Prophylaxis Heparin SC VS, I&O, 24H, Fishbone Vital Signs/I&O Vital Signs Date Time Temp Pulse Resp B/P (MAP) Pulse Ox O2 Delivery O2 Flow Rate FiO2 08/26/18 11:46 99.0 88 20 137/60 (85) 94 3.0 I&O- Last 24 Hours up to 6 AM 08/26/18 05:59 Intake Total 2100 ml Output Total 900 ml Balance 1200 ml Laboratory Data 24H LABS Laboratory Tests 2 08/25/18 16:27: Bedside Glucose (Misc Panel) 196H 08/25/18 20:45: Bedside Glucose (Misc Panel) 227H 08/26/18 06:18: Bedside Glucose (Misc Panel) 136H 08/26/18 08:16: Nucleated Red Blood Cells % (auto) 0.0, Anion Gap 7L, Glomerular Filtration Rate 32.8L, Blood Urea Nitrogen 33H, Creatinine 2.09H, Sodium Level 141, Potassium Level 3.7, Chloride Level 106, Carbon Dioxide Level 28, Calcium Level 7.9L, Magnesium Level 2.2, C-Reactive Protein, Quantitative 17.60H 08/26/18 11:08: Bedside Glucose (Misc Panel) 210H CBC/BMP Laboratory Tests 08/26/18 08:16 Red Blood Count 3.68 L, Mean Corpuscular Volume 91.0, Mean Corpuscular Hemoglobin 29.3, Mean Corpuscular Hemoglobin Concent 32.2, Red Cell Distribution Width 13.8, Calcium Level 7.9 L Microbiology Microbiology 08/23/18 Bacterial Culture, Resulted Pending 08/23/18 Anaerobic Culture - Final, Resulted 08/19/18 Gram Stain - Final, Complete 08/19/18 Wound Culture - Final, Complete Staphylococcus Aureus IRENE PENA MD Aug 26, 2018 14:09
[2018-08-26] MEDS: ACETAMINOPHEN TAB 650MG DOSE (2X325MG) PO PRN (16:14)
--- NOTE | 2018-08-26 19:03 | REP ---
Clinical: Fever. Chest pain. Technique: PA and lateral. Comparison: 08/24/2018. Findings: Mediastinum and cardiac silhouette are normal. Lung mckeon demonstrate chronic interstitial changes. Superimposed subtle bibasilar ground-glass opacities suggest bronchitis and early atelectasis. No effusion. No pneumothorax. Skeletal structures intact. Impression: Chronic changes with suspected superimposed orchitis and bibasilar atelectasis. Electronically Signed by Raghav Sumner MD 08/26/2018 06:55 P
[2018-08-26] MEDS: PIPERACILLIN/TAZOBACTAM SOD 2.25 GM in D5W MINI-BAG PLUS 50 ML IV SCH (20:52)
[2018-08-26] MEDS: SIMVASTATIN 20 MG TAB PO SCH (20:53)
[2018-08-26 22:00] VITALS: BP 121/60
[2018-08-27] MEDS: PIPERACILLIN/TAZOBACTAM SOD 2.25 GM in D5W MINI-BAG PLUS 50 ML IV SCH ×4 (02:07→19:46)
[2018-08-27] MEDS: ACETAMINOPHEN TAB 650MG DOSE (2X325MG) PO PRN ×3 (05:33→21:25)
[2018-08-27] MEDS: ONDANSETRON 4MG/2ML VIAL (J2405) IV PRN ×2 (05:33→13:26)
[2018-08-27] MEDS: HEPARIN SOD (PORCINE) 5000 UNITS/ML VIAL SC SCH ×2 (05:33→17:30)
[2018-08-27 05:55] LABS: HEMATOCRIT 32.6 % (42.0-52.0); HEMOGLOBIN 10.2 g/dl (13.5-17.5); MEAN CORPUSCULAR HEMOGLOBIN 27.7 pg (27.0-33.0); MEAN CORPUSCULAR HGB CONC 31.3 g/dl (32.0-36.5); MEAN CORPUSCULAR VOLUME 88.6 fl (80.0-96.0); PLATELET COUNT, AUTOMATED 251 10^3/uL (150-450); RED BLOOD COUNT 3.68 10^6/uL (4.30-6.10); WHITE BLOOD COUNT 13.7 10^3/uL (4.0-10.0)
[2018-08-27 06:00] VITALS: BP 133/68
[2018-08-27 06:14] LABS: CALCIUM LEVEL 8.2 MG/DL (8.8-10.2); CREATININE FOR GFR 2.56 MG/DL (0.70-1.30); GLOMERULAR FILTRATION RATE 25.9 (>42); POTASSIUM SERUM 3.4 MEQ/L (3.5-5.1)
[2018-08-27] MEDS ORDERED: POTASSIUM CHLORIDE 10 MEQ SR TABLET PO ONE (08:00)
[2018-08-27] MEDS: HumaLOG INSULIN (NovoLOG) PER UNIT SC SCH ×4 (08:41→20:51)
[2018-08-27] MEDS: amLODIPine 5 MG TAB PO SCH (08:41)
[2018-08-27] MEDS: LEVEMIR (INSULIN DETEMIR) 1 UNITS/0.01ML SC SCH ×2 (08:41→20:50)
[2018-08-27] MEDS: CLOPIDOGREL 75 MG TAB PO SCH (08:41)
[2018-08-27] MEDS: BENZONATATE 100 MG CAP PO SCH ×2 (08:42→20:50)
[2018-08-27] MEDS: METOPROLOL TART 25 MG TABLET PO SCH ×2 (08:42→20:50)
[2018-08-27] MEDS: CILOSTAZOL 100 MG TAB (PLETAL) PO SCH ×2 (08:42→20:50)
[2018-08-27] MEDS: FLUTICASONE PROP 0.05% NASAL SPRAY 16 GM (FLONASE) NARES SCH (08:45)
[2018-08-27] MEDS ORDERED: IPRATROPIUM 0.5MG/ALBUTEROL 2.5MG INH SOL UD 3ML (DUONEB)(J7620) NEB PRN (11:45)
[2018-08-27 13:00] VITALS: BP 139/90
--- NOTE | 2018-08-27 13:28 | REP ---
Clinical: Shortness of breath. Technique: Axial noncontrast images from the thoracic inlet to the upper abdomen with coronal and sagittal re-formations. Findings: Lung mckeon demonstrate patchy alveolar and interstitial infiltrates involving right upper lobe, right middle lobe, and bilateral lower lobes consistent with multifocal pneumonia. No effusion. No pneumothorax. Tracheobronchial tree is patent. Reactive mediastinal and hilar adenopathy noted. Atherosclerotic changes to the thoracic aorta and coronary arteries noted without aortic aneurysm or cardiomegaly. No pericardial effusion. Evidence for prior CABG. Musculoskeletal structures demonstrate degenerative changes. Impression: Bilateral infiltrates compatible with multifocal pneumonia. Electronically Signed by Raghav Sumner MD 08/27/2018 01:19 P
[2018-08-27] MEDS ORDERED: NS 1,000 ML IV SCH (13:45)
--- NOTE | 2018-08-27 13:57 | IPNPDOC ---
Subjective Date Seen The patient was seen on 08/27/18. Subjective Chief Complaint/HPI Patient seen and examined at the bedside. He stated that he was having more difficulty breathing this morning with a cough productive of clear/yellowish sputum. A CT scan of the chest was obtained and this revealed a multifocal pneumonia. The patient has been transferred to the PCU for closer monitoring and observation. Objective Physical Examination General Exam: Positive: Alert, Cooperative, Mild Distress (2/2 cough, SOB) Eye Exam: Negative: Sclera icteric ENT Exam: Positive: Atraumatic; Negative: Mucous membr. moist/pink (dry mucous membranes) Neck Exam: Negative: JVD Chest Exam: Positive: Diminished; Negative: Rales Heart Exam: Positive: Rate Normal, Regular Rhythm, Normal S1, Normal S2; Negative: Murmurs, Rubs Abdomen Exam: Positive: Normal bowel sounds, Soft; Negative: Tenderness, Hepatospenomegaly Skin Exam: Positive: Other skin issue (left foot wrapped in surgical dressing.) Psych Exam: Positive: Oriented x 3 Assessment /Plan Plan/VTE VTE Prophylaxis Ordered?: Yes Plan Sepsis with Hypoxia 2/2 Multifocal Pneumonia Patient with worsening Hypoxia this morning associated with cough productive of clear/yellow sputum, and requiring 4L of Oxygen via NC CT Chest notable for Multifocal Pneumonia Antibiotic Coverage broadened to Vanco and Zosyn Blood Pressure stable, will order Gentle IVF Hydration as the patient does appear to be mildly dehydrated, with decreased in PO intake and bump in Serum Cr. Patient will be transferred to the PCU Updated patient's , Daughter, and Son at the bedside We will cont to closely monitor the patient Left Foot Diabetic Wound MRI of L. foot showed evidence of Osteo and possible small abscess s/p Surgical Debridement by Dr. Reeves of Podiatry on 08/23/18--no evidence of Osteo/Abscess formation noted as per Report, cultures pending WBC downtrending this AM, however CRP increased up 17.6-->19 Abx coverage broadened --ID on board, will follow up with their recommendations Podiatry on board--will follow up with their recommendations CKD Stage III-IV Serum Cr increased to 2.56 this AM (Baseline appears to be ~2.0) 2/2 above Gentle IVF Hydration ordered We will monitor I/O's We will consider Nephrology consultation if the patient's renal function worsens HTN Cont Norvasc IDDM Cont Insulin as ordered PAD s/p bypass graft of L. leg c/w home meds. HLD Cont Statin DVT Prophylaxis Heparin SC Code Status: Full Code--discussed at length with patient, family at the bedside. Condition: Guarded VS, I&O, 24H, Fishbone Vital Signs/I&O Vital Signs Date Time Temp Pulse Resp B/P (MAP) Pulse Ox O2 Delivery O2 Flow Rate FiO2 08/27/18 13:15 4.0 08/27/18 13:00 102.3 115 24 139/90 (106) 93 I&O- Last 24 Hours up to 6 AM 08/27/18 06:00 Intake Total 2160 ml Output Total 800 ml Balance 1360 ml Laboratory Data 24H LABS Laboratory Tests 2 08/26/18 16:48: Bedside Glucose (Misc Panel) 159H 08/26/18 20:38: Bedside Glucose (Misc Panel) 220H 08/27/18 05:41: Nucleated Red Blood Cells % (auto) 0.0, Anion Gap 9, Glomerular Filtration Rate 25.9L, Blood Urea Nitrogen 35H, Creatinine 2.56H, Sodium Level 142, Potassium Level 3.4L, Chloride Level 106, Carbon Dioxide Level 27, Calcium Level 8.2L, C- Reactive Protein, Quantitative 19.00H 08/27/18 11:20: Bedside Glucose (Misc Panel) 164H CBC/BMP Laboratory Tests 08/27/18 05:41 Red Blood Count 3.68 L, Mean Corpuscular Volume 88.6, Mean Corpuscular Hemoglobin 27.7, Mean Corpuscular Hemoglobin Concent 31.3 L, Red Cell Distribution Width 13.8, Calcium Level 8.2 L Microbiology Microbiology 08/26/18 Gram Stain - Final, Complete 08/26/18 Sputum Culture - Final, Complete 08/23/18 Bacterial Culture - Final, Complete Corynebacterium Species 08/23/18 Anaerobic Culture - Final, Complete 08/19/18 Gram Stain - Final, Complete 08/19/18 Wound Culture - Final, Complete Staphylococcus Aureus IRENE PENA MD Aug 27, 2018 13:56
[2018-08-27] MEDS ORDERED: VANCOMYCIN HCL 1,000 MG, VIAL MATE ADAPTER 1 EACH in D5W 250 ML IV ONE (14:00)
[2018-08-27 14:24] LABS: ABG HCO3 23.6 MEQ/L (22.0-26.0); ABG O2 SATURATION 96.8 % (95.0-99.0); ABG PARTIAL PRESSURE CO2 34.7 mmHg (35.0-45.0); ABG PARTIAL PRESSURE O2 84.4 mmHg (75.0-100.0); ABG STANDARD HCO3 24.5 MEQ/L (22.0-26.0); ABG TOTAL CO2 24.7 MEQ/L (23.0-31.0); ABG pH (ARTERIAL) 7.451 UNITS (7.350-7.450)
--- NOTE | 2018-08-27 14:42 | PHACANCOPD ---
PHARMACY VANCOMYCIN DOSING Pt Demographics Demographics Patient Age:77 , Weight:102.300 , Gender: male Adjusted Body Weight Date: 08/19/18, Adjusted Body Weight: Kg Events Past 24 Hours Events Past 24 Hours: YES: Change in CrCl, Elevation in WBC; NO: Dialysis, Diuretic Therapy, Fever, Pending Diagnostics, Pending Procedures, Other Vancomycin Vancomycin indication: pneumonia Vancomycin Target Ranges: 15-20 mcg/ml Vancomycin Load Y/N: Yes Load Dose Date Time Vancomycin Load Dose: 1000mg Date: 08/27 Time: 14:00 Vancomycin Dose Date: 08/27/18. Current Vancomycin Dose: [1000mg q18h @21] Intermittent Dosing?: No Labs Labs Item Value Date Time White Blood Count 16.3 10^3/uL H 08/25/18 0549 White Blood Count 14.3 10^3/uL H 08/26/18 0816 White Blood Count 13.7 10^3/uL H 08/27/18 0541 Creatinine 2.37 MG/DL H 08/25/18 0549 Creatinine 2.09 MG/DL H 08/26/18 0816 Creatinine 2.56 MG/DL H 08/27/18 0541 C-Reactive Protein, Quantitative 14.80 MG/DL H 08/25/18 0549 C-Reactive Protein, Quantitative 17.60 MG/DL H 08/26/18 0816 C-Reactive Protein, Quantitative 19.00 MG/DL H 08/27/18 0541 Micro Microbiology 08/27/18 Blood Culture, Received Pending 08/26/18 Gram Stain - Final, Complete 08/26/18 Sputum Culture - Final, Complete 08/23/18 Bacterial Culture - Final, Complete Corynebacterium Species 08/23/18 Anaerobic Culture - Final, Complete 08/19/18 Gram Stain - Final, Complete 08/19/18 Wound Culture - Final, Complete Staphylococcus Aureus Creatinine Clearance Date:08/27/18. Creatinine Clearance: [~26 ml/min]. Date:08/19/18. Creatinine Clearance: [~34]. Pending Labs Vanco trough scheduled 08/29 @08:00 Assessment and Plan Maintaining Current Dose?: Yes Reason for dose change: No Dose Change Pharmacist Note Pharmacist Note Date: 08/27/18. Pharmacist note: pt has been restarted on Vancomycin for pneumonia. He was on vancomycin this admission from 08/19-08/22 for a diabetic foot ulcer which was switched to Ancef 2g until 08/26 when he was switched to Zosyn 2.25g IV q6h. Vancomycin was added today for broader coverage. I have s tarted the pt on vancomycin 1g this afternoon, followed by 1g IV q18h to begin ~7 hours later. I have a trough scheduled for Tuesday morning. SCr has been elevated from his baseline, pt is currently receiving IV fluids. Sputum culture was poor quality, blood culture is pending. Wound culture from 08/19 grew MSSA. We will continue to monitor and make adjustments as necessary. Andrea Perez Pharm.D. Aug 27, 2018 14:42
[2018-08-27 16:00] VITALS: BP 154/66
[2018-08-27 20:00] VITALS: BP 133/64
[2018-08-27] MEDS: SIMVASTATIN 20 MG TAB PO SCH (20:51)
[2018-08-27] MEDS ORDERED: VANCOMYCIN HCL 1,000 MG, VIAL MATE ADAPTER 1 EACH in D5W 250 ML IV SCH (21:00)
[2018-08-27 23:59] VITALS: BP 119/58
[2018-08-28] MEDS: PIPERACILLIN/TAZOBACTAM SOD 2.25 GM in D5W MINI-BAG PLUS 50 ML IV SCH ×4 (01:38→21:50)
[2018-08-28] MEDS: ACETAMINOPHEN TAB 650MG DOSE (2X325MG) PO PRN ×3 (03:52→16:13)
[2018-08-28 04:00] VITALS: BP 132/63
[2018-08-28] MEDS: HEPARIN SOD (PORCINE) 5000 UNITS/ML VIAL SC SCH ×2 (05:20→18:38)
[2018-08-28 05:37] LABS: HEMATOCRIT 32.5 % (42.0-52.0); HEMOGLOBIN 10.2 g/dl (13.5-17.5); MEAN CORPUSCULAR HEMOGLOBIN 27.7 pg (27.0-33.0); MEAN CORPUSCULAR HGB CONC 31.4 g/dl (32.0-36.5); MEAN CORPUSCULAR VOLUME 88.3 fl (80.0-96.0); PLATELET COUNT, AUTOMATED 245 10^3/uL (150-450); RED BLOOD COUNT 3.68 10^6/uL (4.30-6.10); WHITE BLOOD COUNT 13.9 10^3/uL (4.0-10.0)
[2018-08-28 06:25] LABS: C REACTIVE PROTEIN QUANTITATIV 25.7 MG/DL (0.00-0.30); CALCIUM LEVEL 8.2 MG/DL (8.8-10.2); CREATININE FOR GFR 3.19 MG/DL (0.70-1.30); GLOMERULAR FILTRATION RATE 20.1 (>42); POTASSIUM SERUM 3.7 MEQ/L (3.5-5.1)
[2018-08-28 08:00] VITALS: BP 132/54
[2018-08-28] MEDS: NS 1,000 ML IV SCH (09:28)
[2018-08-28] MEDS: HumaLOG INSULIN (NovoLOG) PER UNIT SC SCH ×4 (09:29→21:00)
[2018-08-28] MEDS: CLOPIDOGREL 75 MG TAB PO SCH (09:29)
[2018-08-28] MEDS: CILOSTAZOL 100 MG TAB (PLETAL) PO SCH ×2 (09:29→21:51)
[2018-08-28] MEDS: amLODIPine 5 MG TAB PO SCH (09:29)
[2018-08-28] MEDS: BENZONATATE 100 MG CAP PO SCH ×2 (09:29→21:51)
[2018-08-28] MEDS: LEVEMIR (INSULIN DETEMIR) 1 UNITS/0.01ML SC SCH ×2 (09:30→21:50)
[2018-08-28] MEDS: METOPROLOL TART 25 MG TABLET PO SCH ×2 (09:30→21:54)
[2018-08-28] MEDS: ONDANSETRON 4MG/2ML VIAL (J2405) IV PRN (09:35)
[2018-08-28] MEDS: FLUTICASONE PROP 0.05% NASAL SPRAY 16 GM (FLONASE) NARES SCH (09:36)
[2018-08-28 12:00] VITALS: BP 127/59
--- NOTE | 2018-08-28 12:51 | REP ---
REASON: Renal disease. COMPARISON: None. Right kidney measures 10.2 x 5.6 x 5.4 cm, left 12.6 x 6.0 x 5.4 cm. The renal cortex is thinned bilaterally with increased renal cortical echoes and less than optimal cortical medullary differentiation. There are no cystic or solid masses. There is no hydronephrosis or proximal hydroureter. IMPRESSION: Findings, as described above, consistent with medical renal disease. Electronically Signed by Holden Morales DO 08/28/2018 01:01 P
--- NOTE | 2018-08-28 15:39 | PHACANCOPD ---
PHARMACY VANCOMYCIN DOSING Pt Demographics Demographics Patient Age:77 , Weight:107.400 , Gender: male Adjusted Body Weight Date: 08/19/18, Adjusted Body Weight: Kg Events Past 24 Hours Events Past 24 Hours: YES: Change in CrCl Vancomycin Vancomycin indication: pneumonia Vancomycin Target Ranges: 15-20 mcg/ml Vancomycin Load Y/N: Yes Load Dose Date Time Vancomycin Load Dose: 1000mg Date: 08/27 Time: 14:00 Vancomycin Dose Date: 08/28/18. Current Vancomycin Dose: [1G IV Q24H @16] Date: 08/27/18. Current Vancomycin Dose: [1000mg q18h @21] Intermittent Dosing?: No Labs Labs Item Value Date Time White Blood Count 14.3 10^3/uL H 08/26/18 0816 White Blood Count 13.7 10^3/uL H 08/27/18 0541 White Blood Count 13.9 10^3/uL H 08/28/18 0513 Creatinine 2.09 MG/DL H 08/26/18 0816 Creatinine 2.56 MG/DL H 08/27/18 0541 Creatinine 3.19 MG/DL H 08/28/18 0513 C-Reactive Protein, Quantitative 19.00 MG/DL H 08/27/18 0541 C-Reactive Protein, Quantitative 25.70 MG/DL H 08/28/18 0513 Micro Microbiology 08/27/18 Blood Culture - Preliminary, Resulted No growth after 24 hours . All specim... 08/27/18 Blood Culture - Preliminary, Resulted No growth after 24 hours . All specim... 08/26/18 Gram Stain - Final, Complete 08/26/18 Sputum Culture - Final, Complete 08/23/18 Bacterial Culture - Final, Complete Corynebacterium Species 08/23/18 Anaerobic Culture - Final, Complete 08/19/18 Gram Stain - Final, Complete 08/19/18 Wound Culture - Final, Complete Staphylococcus Aureus Creatinine Clearance Date:08/28/18. Creatinine Clearance: [~21ML/MIN]. Date:08/27/18. Creatinine Clearance: [~26 ml/min]. Date:08/19/18. Creatinine Clearance: [~34]. Pending Labs Vanco trough scheduled 08/29 @15:00 Assessment and Plan Maintaining Current Dose?: No Reason for dose change: Change in serum Cr Pharmacist Note Pharmacist Note Date: 08/28/18. Current Vancomycin Dose: [PT serum creatinine has continued to increase in this pt up to 3.19g/dl creatinine clearance is estimated at 21.2ml/min. The trough came back today after 2 doses at 17.9mcg/ml. Dosing was decreased to 1g IV every 24 hours starting at 16:00. A trough is scheduled for 08/29/18 @ 15:00. We will continue to monitor and adjust the dose as needed.] Date: 08/27/18. Pharmacist note: pt has been restarted on Vancomycin for pneumonia. He was on vancomycin this admission from 08/19-08/22 for a diabetic foot ulcer which was switched to Ancef 2g until 08/26 when he was switched to Zosyn 2.25g IV q6h. Vancomycin was added today for broader coverage. I have started the pt on vancomycin 1g this afternoon, followed by 1g IV q18h to begin ~7 hours later. I have a trough scheduled for Tuesday morning. SCr has been elevated from his baseline, pt is currently receiving IV fluids. Sputum culture was poor quality, blood culture is pending. Wound culture from 08/19 grew MSSA. We will continue to monitor and make adjustments as necessary. TIMOTHY THOMSON [facility] Aug 28, 2018 15:39
[2018-08-28 16:00] VITALS: BP 140/62
[2018-08-28] MEDS: VANCOMYCIN HCL 1,000 MG, VIAL MATE ADAPTER 1 EACH in D5W 250 ML IV SCH (16:22)
--- NOTE | 2018-08-28 16:50 | IPNPDOC ---
Subjective Date Seen The patient was seen on 08/28/18. Subjective Chief Complaint/HPI Patient seen and examined at bedside. He tells me that he is feeling a little better today, and that his appetite is improved and that he will be ordering breakfast morning. Reports that his cough and shortness of breath has also improved this morning. Objective Physical Examination General Exam: Positive: Alert, Cooperative, No Acute Distress Eye Exam: Negative: Sclera icteric ENT Exam: Positive: Atraumatic, Mucous membr. moist/pink Neck Exam: Negative: JVD Chest Exam: Positive: Diminished; Negative: Rales Heart Exam: Positive: Rate Normal, Regular Rhythm, Normal S1, Normal S2; Negative: Murmurs, Rubs Abdomen Exam: Positive: Normal bowel sounds, Soft; Negative: Tenderness, Hepatospenomegaly Skin Exam: Positive: Other skin issue (left foot unwrapped, diabetic wound on the plantar surface with no drainage, tissue seems to be healing well.) Psych Exam: Positive: Oriented x 3 Assessment /Plan Plan/VTE VTE Prophylaxis Ordered?: Yes Plan Sepsis with Hypoxia 2/[address] Chest notable for Multifocal Pneumonia on 08/27 Procalcitonin noted to be 0.38, however measurement was done early after system process started Sputum Culture contaminated Cont Vanco and Zosyn, MRSA screen ordered Respiratory status improved this morning according to the patient We will cont to down titrate supplemental oxygen as tolerated WBC and CRP markers continue to trend upwards Will follow up with ID recommendations Left Foot Diabetic Wound MRI of L. foot showed evidence of Osteo and possible small abscess on 08/19 s/p Surgical Debridement by Dr. Reeves of Podiatry on 08/23/18--no evidence of Osteo/Abscess formation noted as per Report, cultures noted WBC uptrending this AM, CRP increasing 17.6-->19-->25.7 Dressing undone and left foot examined, no purulant drainage noted, and the wound on the plantar surface seems to be healing well Abx coverage broadened --ID on board, will follow up with their recommendations Podiatry on board--will follow up with their recommendations CKD Stage IV Serum Cr continues to increase this AM 2.56-->3.19 (Baseline appears to be ~2.0) 2/2 above Cont Gentle IVF Hydration Monitor I/O's Renal U/S with no acute findings Nephrology consulted HTN Cont Norvasc IDDM Cont Insulin as ordered PAD s/p bypass graft of L. leg c/w home meds. HLD Cont Statin DVT Prophylaxis Heparin SC Code Status: Full Code VS, I&O, 24H, Fishbone Vital Signs/I&O Vital Signs Date Time Temp Pulse Resp B/P (MAP) Pulse Ox O2 Delivery O2 Flow Rate FiO2 08/28/18 16:00 101.1 108 22 140/62 (88) 96 4.0 I&O- Last 24 Hours up to 6 AM 08/28/18 05:59 Intake Total 1680 ml Output Total 0 ml Balance 1680 ml Laboratory Data 24H LABS Laboratory Tests 2 08/27/18 20:29: Bedside Glucose (Misc Panel) 194H 08/28/18 05:13: Nucleated Red Blood Cells % (auto) 0.0, Anion Gap 8, Glomerular Filtration Rate 20.1L, Blood Urea Nitrogen 41H, Creatinine 3.19H, Sodium Level 139, Potassium Level 3.7, Chloride Level 106, Carbon Dioxide Level 25, Calcium Level 8.2L, C-Reactive Protein, Quantitative 25.70H, UP-Bnw-T-Type Natriuretic Peptide 3243H 08/28/18 12:23: Bedside Glucose (Misc Panel) 249H 08/28/18 14:07: Vancomycin Level Trough 17.9 CBC/BMP Laboratory Tests 08/28/18 05:13 Red Blood Count 3.68 L, Mean Corpuscular Volume 88.3, Mean Corpuscular Hemoglobin 27.7, Mean Corpuscular Hemoglobin Concent 31.4 L, Red Cell Distribution Width 13.9, Calcium Level 8.2 L Microbiology Microbiology 08/27/18 Blood Culture - Preliminary, Resulted No growth after 24 hours . All specim... 08/27/18 Blood Culture - Preliminary, Resulted No growth after 24 hours . All specim... 08/26/18 Gram Stain - Final, Complete 08/26/18 Sputum Culture - Final, Complete 08/23/18 Bacterial Culture - Final, Complete Corynebacterium Species 08/23/18 Anaerobic Culture - Final, Complete 08/19/18 Gram Stain - Final, Complete 08/19/18 Wound Culture - Final, Complete Staphylococcus Aureus IRENE PENA MD Aug 28, 2018 16:50
--- NOTE | 2018-08-28 18:42 | IPN ---
DATE: 08/28/2018 Mr. Dorman was transferred to the progressive care unit (PCU) because of pneumonia. He has started with a white count on Tuesday, then developed fevers up to 102, cough with significant shortness of breath. He denies any chest pain. Nausea and vomiting have resolved. Patient's appetite is improving. He was able to get out of bed this afternoon to go to the bathroom. On physical exam, he is alert and oriented but falls asleep easily. Temperature 101.1, pulse 108, respirations 22, blood pressure 140/62, oxygen saturation 96% on 4 liters nasal cannula. HEART: Normal S1, S2 with no murmurs, rubs or gallops. Tachycardiac. LUNGS: Diminished breath sounds. ABDOMEN: Soft, nontender. No hepatosplenomegaly. Obese. EXTREMITIES: Trace edema. Left foot with Charcot's arthropathy with an ulcer, superficial. There is a tendon exposed after incision and drainage (I and D). There is no purulent discharge. There is no cellulitis. There were two sinus tracts on the upper aspect of the ulcer that are healing well. There is no discharge from the ulcers. CT chest done on 08/27/2018 shows bilateral infiltrate compatible with multifocal pneumonia. No effusion. No pneumothorax. Chest x-ray. Done on 08/26/2018 shows chronic changes with superimposed bronchitis and atelectasis. Renal ultrasound showed medical renal disease. LABORATORY DATA: White count is 13.9, hemoglobin 10.2, hematocrit 32.5, platelets 245. Sodium 139, potassium 3.7, chloride 106, bicarbonate 25, BUN 41, creatinine 3.19, which has increased from 2.09 48 hours ago, glucose 203. CRP 25.7. Blood cultures on 08/27/2018 are no growth after 24 hours. Sputum culture was poor, so the culture was not performed. It had many epithelial cells. Methicillin-resistant Staphylococcus aureus (MRSA) screen is pending. IMPRESSION: 1. Pneumonia. Happened postoperatively. Question of aspiration. Patient is currently on vancomycin and Zosyn. Agree with current regimen. His CRP has continued to increase and his fever persists. Will obtain also urine pneumococcal antigen and legionnaire antigen. 2. Diabetic foot ulcer with culture positive for methicillin-sensitive Staphylococcus aureus (MSSA). MRI showed questionable evidence of osteomyelitis status post debridement. Dr. Reeves felt intraoperatively that there was no evidence of osteomyelitis. He is currently on Zosyn and vancomycin, which should be adequate coverage for MSSA. 3. Acute kidney injury on chronic kidney disease. Worsening creatinine. Patient with underlying chronic kidney disease. Nephrology has been consulted. PLAN: Continue with IV vancomycin and Zosyn to cover for aspiration/hospital. Will obtain urine pneumococcal antigen and legionnaire antigen.
[2018-08-28 20:00] VITALS: BP 141/58
[2018-08-28] MEDS: SIMVASTATIN 20 MG TAB PO SCH (21:51)
[2018-08-28 23:59] VITALS: BP 146/66
[2018-08-29] VITALS (26 sets, daily range): BP systolic 103–169; BP diastolic 52–74; O2SAT 90–94
[2018-08-29] MEDS: NS 1,000 ML IV SCH ×3 (00:04→14:02)
[2018-08-29] MEDS: ACETAMINOPHEN TAB 650MG DOSE (2X325MG) PO PRN ×4 (00:06→20:06)
[2018-08-29] MEDS: PIPERACILLIN/TAZOBACTAM SOD 2.25 GM in D5W MINI-BAG PLUS 50 ML IV SCH ×4 (01:37→20:06)
[2018-08-29] MEDS: HEPARIN SOD (PORCINE) 5000 UNITS/ML VIAL SC SCH (05:19)
[2018-08-29 06:04] LABS: HEMOGLOBIN 10.4 g/dl (13.5-17.5); MEAN CORPUSCULAR HEMOGLOBIN 28.2 pg (27.0-33.0); MEAN CORPUSCULAR HGB CONC 31.5 g/dl (32.0-36.5); MEAN CORPUSCULAR VOLUME 89.4 fl (80.0-96.0); PLATELET COUNT, AUTOMATED 240 10^3/uL (150-450); RED BLOOD COUNT 3.69 10^6/uL (4.30-6.10); WHITE BLOOD COUNT 16.7 10^3/uL (4.0-10.0)
[2018-08-29 06:32] LABS: CALCIUM LEVEL 8.6 MG/DL (8.8-10.2); CREATININE FOR GFR 4.24 MG/DL (0.70-1.30); GLOMERULAR FILTRATION RATE 14.5 (>42); POTASSIUM SERUM 3.9 MEQ/L (3.5-5.1)
--- NOTE | 2018-08-29 07:26 | CR ---
DATE OF CONSULTATION: 08/28/2018 REQUESTING PHYSICIAN: Dr. Venancio Song. REASON FOR CONSULTATION: Acute kidney injury superimposed on chronic kidney disease (CKD) stage IV/ HISTORY OF PRESENT ILLNESS: The patient is 77-year-old male with a past medical history of diabetes, hypertension, diabetic neuropathy, left foot Charcot's joint, chronic left foot ulcer followed regularly by Dr. Reeves. Also past medical history of CKD stage III B, baseline creatinine around 2.0, follows with Dr. Woody and history of peripheral vascular disease and other comorbid conditions mentioned below. The patient was admitted on August 19, 2018 for a diabetic foot ulcer. On admission, his renal function was at baseline creatinine 2.0. He underwent surgical debridement on the foot wound on 08/23/2018 and he was recuperating well. However, postoperatively he started having a rise in his white count and started spiking fevers and had concomitant brisk rise in CRP and associated worsening renal function over the past. 2-3 days. Subsequent workup reveals new multifocal pneumonia. The patient has been persistently febrile. His antibiotics were broadened by the primary team and nephrology consultation was requested for help with the management of acute on chronic renal failure. PAST MEDICAL HISTORY: Insulin-dependent diabetes. Chronic kidney disease (CKD) stage III B, baseline creatinine around 2.0. Diabetic neuropathy. History of histoplasmosis of the eye. Legally blind. Peripheral vascular disease. Hypertension. 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 Peripheral vascular disease. Hypertension. Dyslipidemia. PAST SURGICAL HISTORY: Bypass of the left leg in 2012. Multiple debridements and foot surgery of left lower extremity. FAMILY HISTORY: History of diabetes. ALLERGIES: NO KNOWN DRUG ALLERGIES. SOCIAL HISTORY: He is , lives with his . There is no smoking, alcohol and drinking. He is retired. H HOME MEDICATIONS: Home medications are reviewed and include: - amlodipine - cilostazol - Plavix - furosemide - insulin - losartan - metoprolol - simvastatin - vitamin D REVIEW OF SYSTEMS: CONSTITUTIONAL: He complains of generalized weakness and persistent fevers. EYES: Legally blind. ENT: He denies rhinorrhea or dysphasia. CARDIAC: Reports history of peripheral vascular disease. He denies chest pain or palpitations. RESPIRATORY: Presently with a multifocal pneumonia. He reports a productive cough and shortness of breath. GASTROINTESTINAL: He reports some nausea, vomiting and diarrhea. GENITOURINARY: He reports some decrease in urine output. He denies dysuria or hematuria. He denies troubles with emptying of the bladder. ENDOCRINE: He reports insulin dependent diabetes and dyslipidemia. HEMATOLOGIC: He denies easy bruising or bleeding. MUSCULOSKELETAL: He reports chronic wounds of the left foot. He denies any new myalgias or arthralgias. NEUROLOGIC: He denies seizure or syncope. He is legally blind. Remainder review of systems is negative as per history of present illness (HPI). VITAL SIGNS: Temperature 101.6, pulse 102, respiratory rate 20, blood pressure 141/58, saturating 90-96% on 4 liters nasal cannula. Intake yesterday was 1.5 liters. Urine output thus far today is 800 mL. Weight on the bed scale today is 107.4 kg. GENERAL: The patient is seen lying in bed. Head of the bed is elevated. Elderly male awake, alert and cooperative, speaking in full sentences. No accessory muscle use, conversational dyspnea or tachypnea. He is on nasal cannula. Sclerae are anicteric. Tongue is moist. Neck is supple. Jugular veins were not elevated. CARDIAC: S1, S2, mild tachycardia. There is no edema in the peripheries. RESPIRATORY: Diminished breath sounds bilaterally. Occasional crackles. No accessory muscle use seen on nasal cannula. ABDOMEN: Abdomen is soft and nontender. There are bowel sounds. GENITOURINARY: There is no suprapubic distension. EXTREMITIES: Right lower extremity has no edema, left foot has dressings and wraps, which are clean and dry. NEUROLOGIC: He is cooperative with physical exam and answers simple questions appropriately. LABS: Sodium 139, potassium 3.7, bicarbonate 25, BUN 41, creatinine 3.1, CRP 25, hemoglobin 10.2, white count 13.9, blood cultures with no growth for 24 hours times two sets. Urine analysis is pending. Renal ultrasound 08/28/2018 shows cortical atrophy bilaterally. No hydronephrosis. INPATIENT MEDICATIONS: He is receiving normal saline at 75 mL an hour - Zosyn 2.25 grams IV every 6 hours - vancomycin 1 gram IV daily - amlodipine 5 mg by mouth daily - cilostazol 100 mg by mouth twice a day - Plavix 75 mg by mouth daily - heparin 5000 units subcu every 12 hours - insulin - metoprolol 25 mg by mouth twice a day - Zocor 20 mg by mouth nightly PROBLEMS: 1. Acute on chronic renal failure: The patient has baseline CKD stage III B to stage IV. His baseline creatinine is around 1.8-2.0. His renal function was at baseline on admission on 08/19/2018. However, over the past 48 hours, he has had progressive worsening in renal function in the setting of multifocal pneumonia with rising CRP and fever spikes and leukocytosis. The patient reports poor oral intake yesterday and he also reports some watery bowel movements since starting broad spectrum antibiotics. He is appropriately receiving gentle IV fluids normal saline at 75 mL an hour. His electrolytes are acceptable. His medications are dosed for GFR. He is hemodynamically stable. There is no obstruction on renal imaging. I expect his renal function should likely improve as his overall pneumonia picture improves. 2. Multifocal pneumonia with hypoxia, increasing oxygen requirements now on [address] chest noted. Has had elevation in white count over the past 3 days CRP is also briskly rising. Infectious diseases is following him. He is on broad-spectrum vancomycin and Zosyn dosed for renal function. His acute kidney injury (MOHINDER) mirrored the development of the pneumonia. He is receiving gentle IV fluids. 3. Hypertension: Blood pressures are presently acceptable and he continues on amlodipine and metoprolol. Thank you for involving me in the care of Mr. Dorman. I will be happy to follow him along with you.
[2018-08-29 08:50] LABS: C REACTIVE PROTEIN QUANTITATIV 31.8 MG/DL (0.00-0.30)
[2018-08-29 09:13] LABS: ABG BASE EXCESS 0.1 (-2.0-2.0); ABG HCO3 24.2 MEQ/L (22.0-26.0); ABG O2 SATURATION 89.2 % (95.0-99.0); ABG PARTIAL PRESSURE CO2 36.8 mmHg (35.0-45.0); ABG PARTIAL PRESSURE O2 55.4 mmHg (75.0-100.0); ABG STANDARD HCO3 24.5 MEQ/L (22.0-26.0); ABG TOTAL CO2 25.3 MEQ/L (23.0-31.0); ABG pH (ARTERIAL) 7.435 UNITS (7.350-7.450)
[2018-08-29] MEDS: HumaLOG INSULIN (NovoLOG) PER UNIT SC SCH ×3 (09:47→17:19)
[2018-08-29] MEDS: amLODIPine 5 MG TAB PO SCH (09:49)
[2018-08-29] MEDS: CLOPIDOGREL 75 MG TAB PO SCH (09:49)
[2018-08-29] MEDS: BENZONATATE 100 MG CAP PO SCH ×2 (09:49→20:06)
[2018-08-29] MEDS: FLUTICASONE PROP 0.05% NASAL SPRAY 16 GM (FLONASE) NARES SCH (09:49)
[2018-08-29] MEDS: METOPROLOL TART 25 MG TABLET PO SCH (09:49)
[2018-08-29] MEDS: CILOSTAZOL 100 MG TAB (PLETAL) PO SCH (09:49)
[2018-08-29] MEDS: LEVEMIR (INSULIN DETEMIR) 1 UNITS/0.01ML SC SCH ×2 (09:50→20:11)
--- NOTE | 2018-08-29 10:12 | IPNPDOC ---
Subjective Date Seen The patient was seen on 08/29/18. Subjective Chief Complaint/HPI Patient seen and examined at the bedside. Reports that he feels nauseous and overall about the same as yesterday. Does not note any worsening of his respiratory status, but does endorse continued dry cough. States that his appetite has been decreased, but he has been trying to intake by mouth fluids as he can. Objective Physical Examination General Exam: Positive: Alert, Cooperative, Mild Distress (2/2 nausea, coughing, generalized fatigue) Eye Exam: Negative: Sclera icteric ENT Exam: Positive: Atraumatic, Mucous membr. moist/pink (dry mucous membranes) Neck Exam: Negative: JVD Chest Exam: Positive: Diminished; Negative: Rales Heart Exam: Positive: Rate Normal, Regular Rhythm, Normal S1, Normal S2; Negative: Murmurs, Rubs Abdomen Exam: Positive: Normal bowel sounds, Soft; Negative: Tenderness, Hepatospenomegaly Skin Exam: Positive: Other skin issue (left foot unwrapped, diabetic wound on the plantar surface with no drainage, tissue seems to be healing well.) Psych Exam: Positive: Oriented x 3 Assessment /Plan Plan/VTE VTE Prophylaxis Ordered?: Yes Plan Sepsis with Hypoxemia 2/[address] Chest notable for Multifocal Pneumonia on 08/27, likely 2/2 aspiration due to nausea/vomiting following surgery, and atelectasis post-operatively Procalcitonin noted to be 0.38, however measurement was done early after systemic process started Sputum Culture contaminated Cont Vanco and Zosyn, MRSA screen pending Respiratory status has not significantly improved since starting broad spectrum abx therapy ABG this AM with adequate CO2 levels, but with hypoxemia noted, We will cont to down titrate supplemental oxygen as tolerated, and monitor the patient's respiratory status. WBC and CRP markers continue to trend upwards ID on board, recommendations appreciated Left Foot Diabetic Wound MRI of L. foot showed evidence of Osteo and possible small abscess on 08/19 s/p Surgical Debridement by Dr. Reeves of Podiatry on 08/23/18--no evidence of Osteo/Abscess formation noted as per Report, cultures noted WBC uptrending this AM, CRP increasing 17.6-->19-->25.7-->31.8 Dressing undone and left foot examined, no purulant drainage noted, and the wound on the plantar surface seems to be healing well Abx coverage broadened --ID on board, will follow up with their recommendations Podiatry on board--will follow up with their recommendations CKD Stage IIB-IV with superimposed ARF Serum Cr continues to increase this AM 2.56-->3.19-->4.24 (Baseline appears to be ~2.0) 2/2 above Patient has been having minimal PO intake and does appear dehydrated--NS IVF rate increased this AM. Will cont to monitor the patient's volume/respiratory s tatus given patient's history of Diastolic CHF on Diuretics at baseline Monitor I/O's--patient non-oliguric, with a total UOP of 900 cc's yesterday. Renal U/S with no acute findings Lytes stable Nephrology on board, input appreciated HTN Cont Norvasc IDDM Cont Insulin as ordered PAD s/p bypass graft of L. leg c/w home meds. HLD Cont Statin DVT Prophylaxis Heparin SC Code Status: Full Code Guarded clinical condition discussed with the patient Haley Dorman via telephone this morning with the patient's worsening clinical condition (Increased WBC, CRP Markers, and worsening Renal Failure). We will cont to provide the patient with the aforementioned therapy in hopes of improving his overall condition. The patient otherwise remains hemodynamically stable, and his mentation remains mostly intact. Update 12pm--Patient with increased oxygen requirement this AM. Case discussed with Pulmonary, we will transfer the patient to the ICU for closer monitoring. Patient's and daughter updated at length at the bedside. All questions answered to their satisfaction. Update 4pm--Elevated Troponin marker of 1.57 noted. EKG done revealed NSR, with non-specific ST changes in the lateral leads which was noted on previous EKG tracing. Patient denies any chest pain, or palpitations at this time. The patient otherwise remains hemodynamically stable. I have informally discussed the case via telephone with Dr. Kang, and he has recommended starting the patient on a Heparin gtt at this time and continuing Plavix. Cardiac Cath is not recommended at this time given the patient's septic condition. However, the patient will certainly warrant further ischemic work up in the future if/when he is more stable. In addition, we will re-introduce beta blockade therapy once the patient is more stable and the inherent risk of worsening sepsis is less likely. In the meantime, we will serially trend troponin markers, 2D ECHO ordered, and monitor on Telemetry. VS, I&O, 24H, Fishbone Vital Signs/I&O Vital Signs Date Time Temp Pulse Resp B/P (MAP) Pulse Ox O2 Delivery O2 Flow Rate FiO2 08/29/18 09:49 98 128/58 08/29/18 08:00 102.2 20 90 4.0 I&O- Last 24 Hours up to 6 AM 08/29/18 05:59 Intake Total 3448 ml Output Total 1150 ml Balance 2298 ml Laboratory Data 24H LABS Laboratory Tests 2 08/28/18 12:23: Bedside Glucose (Misc Panel) 249H 08/28/18 14:07: Vancomycin Level Trough 17.9 08/28/18 16:49: Bedside Glucose (Misc Panel) 253H 08/28/18 21:53: Bedside Glucose (Misc Panel) 249H 08/29/18 05:40: Nucleated Red Blood Cells % (auto) 0.0, Anion Gap 8, Glomerular Filtration Rate 14.5L, Blood Urea Nitrogen 49H, Creatinine 4.24H, Sodium Level 140, Potassium Level 3.9, Chloride Level 105, Carbon Dioxide Level 27, Calcium Level 8.6L, C- Reactive Protein, Quantitative 31.80H 08/29/18 08:56: Blood Gas Bicarbonate Standard 24.5, Arterial Blood pH 7.435, Arterial Blood Partial Pressure CO2 36.8, Arterial Blood Partial Pressure O2 55.4L, Arterial Blood Total CO2 25.3, Arterial Blood HCO3 24.2, Arterial Blood Base Excess 0.1, Arterial Blood Oxygen Saturation 89.2L CBC/BMP Laboratory Tests 08/29/18 05:40 Red Blood Count 3.69 L, Mean Corpuscular Volume 89.4, Mean Corpuscular Hemoglobin 28.2, Mean Corpuscular Hemoglobin Concent 31.5 L, Red Cell Distribution Width 14.0, Calcium Level 8.6 L Microbiology Microbiology 08/27/18 Blood Culture - Preliminary, Resulted No growth after 24 hours . All specim... 08/27/18 Blood Culture - Preliminary, Resulted No growth after 24 hours . All specim... 08/26/18 Gram Stain - Final, Complete 08/26/18 Sputum Culture - Final, Complete 08/28/18 MRSA Screen, Received Pending 08/23/18 Bacterial Culture - Final, Complete Corynebacterium Species 08/23/18 Anaerobic Culture - Final, Complete 08/19/18 Gram Stain - Final, Complete 08/19/18 Wound Culture - Final, Complete Staphylococcus Aureus IRENE PENA MD Aug 29, 2018 10:12
[2018-08-29 10:44] LABS: AMORPHOUS SEDIMENT SMALL (NEGATIVE); APPEARANCE, URINE CLOUDY (CLEAR); BACTERIA, URINE AUTO NEGATIVE (NEGATIVE); BILIRUBIN, URINE AUTO NEGATIVE (NEGATIVE); BLOOD, URINE BLOOD 2+ (NEGATIVE); COLOR, URINE YELLOW (YELLOW); GLUCOSE, URINE (UA) AUTO 1+ mg/dL (NEGATIVE); KETONE, URINE AUTO NEGATIVE (NEGATIVE); LEUKOCYTE ESTERASE, URINE AUTO NEGATIVE (NEGATIVE); NITRITE, URINE AUTO NEGATIVE (NEGATIVE); PROTEIN, URINE AUTO 2+ mg/dL (NEGATIVE); RBC, URINE AUTO 6 /HPF (0-3); SPECIFIC GRAVITY URINE AUTO 1.014 (1.002-1.035); SQUAMOUS EPITHELIAL CELL UR AU 0 /HPF (0-6); UROBILINOGEN, URINE AUTO 0.2 mg/dL (0.0-2.0); WBC, URINE AUTO 3 /HPF (0-3)
--- NOTE | 2018-08-29 11:25 | REP ---
Chest one-view HISTORY: Shortness of breath Comparison: 08/26/2018 Patchy densities are present in the the right upper and lower lobes and left lower lobe consistent with bilateral infiltrates. The heart is normal in size. The pulmonary vasculature is normal in appearance. Impression: Right upper and bilateral lower lobe infiltrates. Electronically Signed by Jeovany Gibson MD 08/29/2018 11:17 A
[2018-08-29] MEDS ORDERED: GLUCAGON FOR INJ 1 MG VIAL (J1610) SC PRN (12:15)
[2018-08-29] MEDS ORDERED: GLUCOSE 4 GM CHEW TABLET PO PRN (12:15)
[2018-08-29] MEDS ORDERED: DEXTROSE 50% 50 ML SYRINGE IV PRN (12:15)
[2018-08-29 12:52] LABS: INR 1.36
[2018-08-29 12:53] LABS: PARTIAL THROMBOPLASTIN TIME 40.1 SECONDS (25.4-37.6)
--- NOTE | 2018-08-29 13:43 | CR ---
DATE OF CONSULTATION: 08/30/2018 HISTORY OF PRESENT ILLNESS: The patient is a 77-year-old male with a past medical history of diabetes, hypertension, diabetic nephropathy, chronic left foot ulcer, chronic kidney disease (CKD), peripheral vascular disease, and hypertension who presented initially at the end of July with a diabetic foot ulcer. The patient had a possible osteomyelitis. He underwent a debridement of his foot ulcer and was not felt to have osteomyelitis during the surgery. He had wound cultures positive for methicillin-sensitive staphylococcus aureus (MSSA) and he has been on antibiotics. His left foot bone biopsy was positive for Corynebacterium. Postoperatively, the patient had episodes of nausea and vomiting. He had fever and increasing leukocytosis as well as complaint of cough. He had a chest CT done on 08/27/2018 which showed evidence of bilateral opacities. The patient's antibiotics were broadened to vancomycin and Zosyn for possible aspiration pneumonia. He has also required increasing nasal cannula oxygen supplementation in the past few days. The patient this morning was on 4 liters of nasal cannula. He continues to report complaints of a cough which has not been productive. He denies any increased shortness of breath. No chest pain. He does continue to have fevers as well. He continues to report nausea and difficulty tolerating solid foods. He is able to drink liquids however. Earlier this morning, the patient had an episode of desaturation while on the nasal cannula. The patient has also been somewhat drowsy and lethargic, although he is arousable to voice and he is appropriate with answering questions and following commands. The patient was transferred to the intensive care unit (ICU) for closer monitoring. PAST MEDICAL AND SURGICAL HISTORY: 1. Insulin dependent diabetes. 2. CKD. 3. Diabetic neuropathy. 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 5. Legally blind. 6. Peripheral vascular disease. 7. Hypertension. 8. 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 9. Hyperlipidemia. 10. 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 11. Multiple debridements and foot surgeries of the left lower extremity. FAMILY HISTORY: Family history of diabetes. Denies family history of cancer or lung disease. ALLERGIES: NO KNOWN DRUG ALLERGIES. SOCIAL HISTORY: The patient is a former smoker, he quit more than 25 years ago. He is retired. HOME MEDICATIONS: - amlodipine - Plavix - furosemide - insulin - losartan - metoprolol - simvastatin - vitamin D PHYSICAL EXAMINATION: T-max 102.2, T-current 99.1, respirations 28, pulse 92, blood pressure 124/64, O2 sat 94% on 50% Venti mask. General: The patient is a an overweight male who is lying in bed, appears drowsy, but is awake and alert and oriented times three. HEENT: Normocephalic, atraumatic. Dry mucous membranes. Neck is supple. No jugular venous distention (JVD) noted. Trachea is midline and no palpable adenopathy. Cardiovascular: Regular rate and rhythm. Normal S1 and S2. Unable to appreciate any murmurs. Pulmonary: There are decreased breath sounds bilaterally with crackles at the bases and occasional coarse rhonchi. Abdomen is obese, appears mildly distended, but is soft and is nontender to palpation. There are bowel sounds present. Extremities: Right lower extremity has trace edema. Left lower extremity has a dressing on his left foot and wrap which appears clean and dry. There is no edema in the left leg. There is no calf tenderness bilaterally. LABORATORY DATA: WBC 16.7, hemoglobin 10.4, platelets 240. Chemistry: Sodium 140, potassium 3.9, chloride 105, bicarb 27, BUN 49, creatinine 4.24, glucose 163, CRP increasing to 31.8, BNP 3243, procalcitonin on was 0.38. IMAGES: CT chest on 08/27/2018 somewhat limited by respiratory motion. There are patchy opacities bilaterally, more on the right than in the left, and more in the lower lobe distribution and they appeared to be more peripheral. There is some possible mild chronic fibrotic changes as well in the periphery of the lungs. There is some mediastinal adenopathy which is difficult to assess on a noncontrast CT. Chest x-ray today compared to a chest x-ray on 08/26/2018 shows increasing opacities in the lower lobes bilaterally, more on the right than on the left, as well as right upper lobe opacities. ASSESSMENT/PLAN: The patient is a 77-year-old male with a past medical history of insulin-dependent diabetes, peripheral arterial disease, CKD, hypertension, hyperlipidemia, and chronic diabetic foot ulcer in the left foot who presented initially with an infected foot ulcer and concern for possible osteomyelitis. The patient underwent debridement surgery and postoperatively he had developed nausea and vomiting. He had increasing leukocytosis, fever and cough. Imaging was suggestive of multifocal pneumonia likely secondary to an aspiration pneumonia. He was started on broad-spectrum antibiotics; however, he has continued to be febrile and continues to have increasing leukocytosis and CRP. The patient has also required increasing nasal cannula oxygen supplementation. He also had episodes of desaturations today and was placed on Venti mask and transferred to the ICU for closer monitoring. Acute hypoxemic respiratory failure in the setting of likely multifocal aspiration pneumonia. The patient continues to have reports of nausea and he has been drinking still and he may be continuing to have episodes of aspiration contributing to his desaturation. His chest x-ray today appears to have worsening of his bilateral lower lobe infiltrates. - The patient's ABG does not show any evidence of hypercarbia. It does show worsening hypoxemia. The patient is tachypneic, but does not appear to be in acute respiratory distress currently. He is somewhat lethargic, but he is still alert, oriented and easily arousable. - Discussed with the patient and his family about the possibility of intubation for his hypoxic respiratory failure. Will continue to monitor his respiratory status closely and follow up a repeat ABG this afternoon. If he has worsening respiratory distress or tachypnea, would need to intubate him at that time. - Continue with broad-spectrum antibiotics with vancomycin and Zosyn. ID is consulted and has been following. - Would repeat blood cultures given his fever and repeat sputum and urine culture. - Urine Legionella, Strep pneumoniae is pending. - Would add atypical coverage to his antibiotic regimen given his persistent fevers. - Would repeat a procalcitonin and will check a lactic acid level. - Would also check ANCAs given his CT findings and his worsening renal failure for possible vasculitis. - The patient and has been increased on his IV fluids to 125 mL/hr. Will continue with IV fluid hydration with close monitoring of fluid status Given his continuing fever as well as with his complaints of nausea would check an amylase and lipase and would also check LFTs. If he has elevated LFTS, would consider further imaging for possible gallbladder source of infection. However, he denies any abdominal pain and he is not complaining of any pain on examination, making that less likely. - would also check cardiac markers. The patient also with acute on chronic renal failure. Renal has been following and appreciate their recommendations. Will place a Llanes catheter for more accurate measurement of his ins and outs and continue to monitor his renal function. - Would replete electrolytes as needed. - Would renally dose medications. - Would hold his antihypertensive medications given concerns for developing sepsis. Deep vein thrombosis (DVT) prophylaxis. Full code. Total critical care time spent, not including any procedures, approximately 1 hour and 30 minutes. MTDD
[2018-08-29 13:49] LABS: ALBUMIN 1.7 GM/DL (3.2-5.2); BILIRUBIN,DIRECT 0.2 MG/DL (0.0-0.2); BILIRUBIN,TOTAL 0.4 MG/DL (0.2-1.0); MB/CK RELATIVE INDEX 1.47 (< OR =4); TOTAL PROTEIN 5.7 GM/DL (6.4-8.2); TROPONIN I 1.57 NG/ML (< 0.10)
[2018-08-29] MEDS: DOXYCYCLINE HYCLATE 100 MG in D5W MINI-BAG PLUS 100 ML IV SCH (14:01)
[2018-08-29] MEDS: VANCOMYCIN HCL 1,000 MG, VIAL MATE ADAPTER 1 EACH in D5W 250 ML IV SCH (16:47)
[2018-08-29] MEDS: HEPARIN DRIP 25,000 UNITS in APPROPRIATE DILUENT 1 EA IV SCH (17:15)
[2018-08-29 19:52] LABS: MB/CK RELATIVE INDEX 1.7 (< OR =4); TROPONIN I 1.36 NG/ML (< 0.10)
[2018-08-29] MEDS: SIMVASTATIN 20 MG TAB PO SCH (20:06)
--- NOTE | 2018-08-29 20:58 | ECGEPIP ---
[facility] Test Date: 2018-08-29 Pat Name: GABY GREENE Department: Room: [place] [address] Gender: Male [employer] Operator: : [id number] Requested By: IRENE PENA Order Number: [id number] Reading MD: Kennedy Feliciano Measurements Intervals Mikana Rate: 94 P: PA: 153 QRS: 42 QRSD: 120 T: 38 QT: 351 QTc: 440 Interpretive Statements Normal sinus rhythm LA conduction disturbance? Prominent right precordial R waves; rule out Right ventricular hypertrophy versus prior PWMI. Nonspecific ST/T-wave abnormalities. No prior tracing for comparison. Clincal correlation advised Electronically Signed on 08-29-2018 20:58:25 EDT by Kennedy Feliciano
--- NOTE | 2018-08-29 22:23 | IPN ---
DATE: 08/29/2018 SUBJECTIVE Patient seen and examined this morning at the bedside in the intensive care unit. He has required increasing supplemental oxygen. He is now nothing by mouth (n.p.o.) and on a Ventimask. He is persistently febrile. Maximum temperature (T max) today 102.5. His white count and his CRP both continue to increase, and renal function shows further derangement. Urine output is averaging about 30 mL per hour. Vital signs: T-max 102.5, current temperature (T-current) 101.1, pulse 95, respiratory rate 30, blood pressure 147/67, saturating 96% on a Ventimask. Intake yesterday was 3.3 liters, urine output yesterday was 900 mL, net positive 2.4 liters. Weight on the bed scale today is 109.5 kg. General: The patient is seen at the bedside in the intensive care unit. His and daughter are present. He is awake, alert and oriented times three, and is cooperative with physical exam and answers simple questions appropriately. His mucous membranes are dry. Ventimask is in place. Neck is supple. Jugular veins are very mildly elevated. Cardiac: Regular rate and rhythm. S1, S2. Lungs: Diminished breath sounds bilaterally with coarse air movement and rhonchus. He is on Ventimask. There is tachypnea. There is no accessory muscle use. Abdomen is soft and obese. Genitourinary: Shows an indwelling Llanes catheter. Extremities show no edema. Skin is warm to touch; he is febrile. LABORATORY: Sodium 140, potassium 3.9, bicarbonate 27, BUN 49, creatinine 4.2, lactic acid 1.1, troponin 1.5, CRP 31, hemoglobin 10.4, white count 16.7. Microbiology: Respiratory viral panel returned back positive for influenza. Chest x-ray, August 29, 2018: Patchy densities bilaterally. INPATIENT MEDICATIONS: Reviewed by myself. I note he was started on doxycycline and was also started on a heparin drip. Prune Washer did increase his IV fluids to 125 mL an hour. He continues on renally dosed vancomycin and Zosyn. Cilostazol is noted to be discontinued. His insulin was adjusted per the primary team. Remainder of medications are unchanged from prior. PROBLEMS: 1. 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 His baseline creatinine is around 2.0. His admission GFR was 33 mL per minute, and his renal function was fairly stable over the course of this admission until August 25, 2018, which is when he first started also exhibiting signs of pneumonia with leukocytosis, fever spikes and rising CRP. His renal injury is felt to be secondary to the severe infection and pneumonia. There is ongoing leukocytosis, rising CRP and high-grade fevers, and the patient continues to have accompanying decline in renal function. His renal imaging was negative for any obstruction. He remains hemodynamically stable. He is receiving normal saline, which I note was increased to 125 mL per hour. However, I am concerned about his fluid status given his history of home diuretic dependence. I am, therefore, cutting his IV fluids down to 50 mL per hour. I do not feel that his kidney injury will be responsive to aggressive hydration given that he is already hemodynamically stable and aggressive fluid hydration will risk worsening his respiratory status. There is no indication for dialysis at present, though the patient is high risk for progressing to dialysis needs, and I have discussed the same with his and daughter. 2. Multifocal pneumonia and hypoxemia. Increasing oxygen requirements with worsening leukocytosis and CRP and ongoing high-grade fevers. His respiratory viral panel returned positive for flu. Serologic studies are also pending to rule out any sort of vasculitic or autoimmune process. He is receiving broad-spectrum antibiotics with vancomycin and Zosyn, and I note doxycycline has also been added. Infectious diseases is following. 3. Elevated troponin. I note the patient is being started on a heparin drip. Echocardiogram is also pending, and it will be helpful to see how the inferior vena cava looks on echocardiogram for further estimation of his fluid status. Again, I would avoid aggressive IV fluid in this gentleman with rising daily weights, daily net positive fluid balance, and risk of deterioration in respiratory status from fluid overload.
[2018-08-29 22:26] LABS: ABG BASE EXCESS -4.6 (-2.0-2.0); ABG HCO3 19.3 MEQ/L (22.0-26.0); ABG O2 SATURATION 94.6 % (95.0-99.0); ABG PARTIAL PRESSURE CO2 31.5 mmHg (35.0-45.0); ABG PARTIAL PRESSURE O2 73.3 mmHg (75.0-100.0); ABG STANDARD HCO3 20.6 MEQ/L (22.0-26.0); ABG TOTAL CO2 20.3 MEQ/L (23.0-31.0); ABG pH (ARTERIAL) 7.406 UNITS (7.350-7.450)
--- NOTE | 2018-08-29 23:28 | PHACANCOPD ---
PHARMACY VANCOMYCIN DOSING Pt Demographics Demographics Patient Age:77 , Weight:109.500 , Gender: male Adjusted Body Weight Vancomycin Vancomycin indication: pneumonia Vancomycin Target Ranges: 15-20 mcg/ml Vancomycin Load Y/N: Yes Load Dose Date Time Vancomycin Load Dose: 1000mg Date: 08/27 Time: 14:00 Vancomycin Dose Date: 08/29/18. Current Vancomycin Dose: [1G IV Q24H @16] Intermittent Dosing?: No Labs Labs Laboratory Tests Test 08/28/18 14:07 08/29/18 14:46 Vancomycin Level Trough 17.9 UG/ML (10.0-20.0) 17.7 UG/ML (10.0-20.0) Laboratory Tests 08/25/18 05:49 Red Blood Count 3.88, Mean Corpuscular Volume 89.9, Mean Corpuscular Hemoglobin 28.1, Mean Corpuscular Hemoglobin Concent 31.2, Red Cell Distribution Width 13.9, Neutrophils (%) (Auto) 72.9, Lymphocytes (%) (Auto) 12.4, Monocytes (%) (Auto) 8.6, Eosinophils (%) (Auto) 5.0, Basophils (%) (Auto) 0.5, Neutrophils # (Auto) 11.9, Lymphocytes # (Auto) 2.0, Monocytes # (Auto) 1.4, Eosinophils # (Auto) 0.8, Basophils # (Auto) 0.1, Calcium Level 8.8 08/26/18 08:16 Red Blood Count 3.68, Mean Corpuscular Volume 91.0, Mean Corpuscular Hemoglobin 29.3, Mean Corpuscular Hemoglobin Concent 32.2, Red Cell Distribution Width 13.8, Calcium Level 7.9 08/27/18 05:41 Red Blood Count 3.68, Mean Corpuscular Volume 88.6, Mean Corpuscular Hemoglobin 27.7, Mean Corpuscular Hemoglobin Concent 31.3, Red Cell Distribution Width 13.8, Calcium Level 8.2 08/28/18 05:13 Red Blood Count 3.68, Mean Corpuscular Volume 88.3, Mean Corpuscular Hemoglobin 27.7, Mean Corpuscular Hemoglobin Concent 31.4, Red Cell Distribution Width 13.9, Calcium Level 8.2 08/29/18 05:40 Red Blood Count 3.69, Mean Corpuscular Volume 89.4, Mean Corpuscular Hemoglobin 28.2, Mean Corpuscular Hemoglobin Concent 31.5, Red Cell Distribution Width 14.0, Calcium Level 8.6 Micro Microbiology 08/29/18 Blood Culture, Received Pending 08/29/18 Blood Culture, Received Pending 08/27/18 Blood Culture - Preliminary, Resulted No Growth after 48 hours. All Specime... 08/27/18 Blood Culture - Preliminary, Resulted No Growth after 48 hours. All Specime... 08/29/18 Respiratory Virus Panel (PCR) (MG) - Final, Complete Influenza A [id number]/28/18 MRSA Screen, Worksheet Pending 08/26/18 Gram Stain - Final, Complete 08/26/18 Sputum Culture - Final, Complete 08/23/18 Bacterial Culture - Final, Complete Corynebacterium Species 08/23/18 Anaerobic Culture - Final, Complete 08/19/18 Gram Stain - Final, Complete 08/19/18 Wound Culture - Final, Complete Staphylococcus Aureus Creatinine Clearance Date:08/28/18. Creatinine Clearance: [~21ML/MIN]. Date:08/27/18. Creatinine Clearance: [~26 ml/min]. Date:08/19/18. Creatinine Clearance: [~34]. Assessment and Plan Maintaining Current Dose?: No Reason for dose change: Change in serum Cr, Trough too high Pharmacist Note Pharmacist Note Date: 08/29/18. PharmD NOTE: 24HR VANCO TROUGH = 17.7mcg/ml. SCR UP TO 4.24mcg/ml TODAY FROM 3.19 YESTERDAY; SUGGESTING CONTINUED ARF. FOLLOWING TODAYS 16:00 DOSE WE WILL CHANGE HIS VANCO TO 1GM IV Q72HRS STARTING 09/01/18 DUE TO HIS WORSENING RF. WE WILL ORDER A VANCO RANDOM IN A FEW DAYS TO FOLLOW HIS ELIMINATION [facility] Aug 29, 2018 23:28
[2018-08-29] MEDS: HEPARIN SOD (PORCINE) 5000 UNITS/ML VIAL IV PRN (23:42)
[2018-08-30] VITALS (13 sets, daily range): BP systolic 111–160; BP diastolic 53–75; O2SAT 96
[2018-08-30] MEDS: DOXYCYCLINE HYCLATE 100 MG in D5W MINI-BAG PLUS 100 ML IV SCH ×2 (00:18→12:09)
[2018-08-30] MEDS: HumaLOG INSULIN (NovoLOG) PER UNIT SC SCH ×4 (00:25→17:34)
[2018-08-30] MEDS: ACETAMINOPHEN TAB 650MG DOSE (2X325MG) PO PRN ×2 (01:54→12:11)
[2018-08-30] MEDS: PIPERACILLIN/TAZOBACTAM SOD 2.25 GM in D5W MINI-BAG PLUS 50 ML IV SCH ×4 (01:54→20:51)
[2018-08-30] MEDS: IPRATROPIUM 0.5MG/ALBUTEROL 2.5MG INH SOL UD 3ML (DUONEB)(J7620) NEB SCH ×5 (02:05→20:28)
[2018-08-30 03:36] LABS: MB/CK RELATIVE INDEX 1.44 (< OR =4); TROPONIN I 0.96 NG/ML (< 0.10)
[2018-08-30 04:54] LABS: HEMOGLOBIN 10.1 g/dl (13.5-17.5); MEAN CORPUSCULAR HGB CONC 31.6 g/dl (32.0-36.5); PLATELET COUNT, AUTOMATED 223 10^3/uL (150-450); RED BLOOD COUNT 3.48 10^6/uL (4.30-6.10); WHITE BLOOD COUNT 16.6 10^3/uL (4.0-10.0)
[2018-08-30 05:13] LABS: CREATININE FOR GFR 4.71 MG/DL (0.70-1.30); GLOMERULAR FILTRATION RATE 12.8 (>42); POTASSIUM SERUM 3.7 MEQ/L (3.5-5.1)
[2018-08-30] MEDS: LEVEMIR (INSULIN DETEMIR) 1 UNITS/0.01ML SC SCH ×2 (09:00→20:55)
[2018-08-30] MEDS: BENZONATATE 100 MG CAP PO SCH ×2 (09:00→20:52)
[2018-08-30] MEDS ORDERED: FUROSEMIDE 40 MG/4 ML VIAL (J1940) IV ONE (09:15)
[2018-08-30] MEDS: HEPARIN DRIP 25,000 UNITS in APPROPRIATE DILUENT 1 EA IV SCH ×2 (09:18→21:38)
[2018-08-30] MEDS: CLOPIDOGREL 75 MG TAB PO SCH (09:21)
[2018-08-30] MEDS: FLUTICASONE PROP 0.05% NASAL SPRAY 16 GM (FLONASE) NARES SCH (09:23)
--- NOTE | 2018-08-30 10:06 | CCN ---
DATE: 08/30/2018 The patient was seen and examined this morning during bedside rounds. Overnight the patient was on a 50% VentiMask and he was having periodic episodes of desaturation into the low 90s. He did not appear to be in worsening respiratory distress. He was still tachypneic with a respiratory rate around 28-30. He was still mentating appropriately and at his baseline yesterday evening. The patient had an ABG done overnight which did not show a significant worsening of his hypoxemia and did not have any significant respiratory acidosis. He was switched therefore from VentiMask to Vapotherm yesterday. This morning, the patient is on the Vapotherm and he reports his breathing is doing about the same. He does not feel he has any increased shortness of breath currently. He has no chest pain. He does have some cough still, but has now been able to produce some sputum. The patient continues to have fevers. His T-max in the past 24 hours was 101.1. The patient has received Tylenol overnight. This morning his temperature is 100.5. PHYSICAL EXAMINATION: Temperature 100.5, pulse 102, respirations 30, blood pressure 143/66, O2 sat 96% on Vapotherm 40 liters per minute with an FiO2 of 75%. GENERAL: The patient is an elderly male who is lying in bed, is awake and alert and oriented times three. He is drowsy at times but easily arousable. HEENT: Normocephalic, atraumatic. Dry mucous membranes. NECK: Neck is supple. Unable to appreciate JVD. Trachea is midline. No palpable adenopathy. CARDIOVASCULAR: Tachycardic, regular rhythm. No S1-S2. Unable to appreciate any murmurs. PULMONARY: The patient has crackles bilaterally with occasional coarse rhonchi. In addition occasional coarse rhonchi he also has a coarse inspiratory wheeze. ABDOMEN: Is obese and soft, nontender to palpation. EXTREMITIES: Patient has trace to +1 lower extremity pitting edema in the right leg and trace lower extremity edema in the left leg. His left foot has a Charcot deformity and he has a dressing around his left foot, which appears clean, dry and intact. LABS: WBC 16.6, hemoglobin 10.1, platelets 223. Chemistries - sodium is 140, potassium 3.7, chloride 108, bicarb 25, BUN 54, creatinine 4.71, glucose is 183. Troponin is trending down to 0.96, PTT 79.5. ABG overnight pH 7.406, pCO2 of 31.5, pO2 of 73.3. Microbiology: Influenza A positive. ASSESSMENT/PLAN: Patient is a 77-year-old male with past low history of diabetes, PAD, chronic kidney disease (CKD), hypertension, hyperlipidemia, chronic diabetic foot ulcer in the left foot who presented initially with an infected foot ulcer with concern for possible osteomyelitis. The patient underwent debridement surgery and postoperatively he had developed nausea and vomiting as well as increasing leukocytosis, fever and cough. The patient had imaging done which was suggestive of possible multifocal pneumonia, likely secondary to aspiration. He was started on broad-spectrum antibiotics; however, he continues to be febrile and have increasing leukocytosis and CRP. The patient also was requiring increasing oxygen requirements and he was transferred to the ICU for closer monitoring. Acute hypoxemic respiratory failure in the setting of multifocal aspiration pneumonia. His respiratory panel was also positive for influenza A so the patient may also have influenza pneumonia and possible superimposed bacterial pneumonia. The patient continues to have episodes of fever despite being on broad-spectrum antibiotics with vancomycin and Zosyn. Doxycycline was added for atypical coverage given his persistent fevers. - Repeat procalcitonin is pending. Urine Legionella strep pneumonia and Mycoplasma is also pending. - MRSA screen was negative, vancomycin was DC'd. - Patient had LFTs checked and lipase which were within normal limits. - Patient had ANCA done given the CT finding and his worsening renal failure. There may also be a possible vasculitis and that is still pending. - Patient is currently on Vapotherm and his ABG did not show any significant respiratory acidosis and his hypoxemia has remained stable. The patient is still tachypneic but he does not appear to be in worsening respiratory distress. His mental status is still at baseline. - Will continue to monitor his respiratory status closely. If the patient has worsening tachypnea, altered mental status, or desaturation would need to be intubated for his hypoxemic respiratory failure. The patient has acute on chronic renal failure. Appreciate renal recommendations. He had a Llanes catheter placed for ins and out monitoring and the patient is a significantly positive with the fluids that he received for possible sepsis. This morning he appears to have slightly more pitting edema and more crackles on exam. Will give a dose of Lasix for diuresis as his blood pressures have stabilized now. - Continue to monitor electrolytes. - Continue to follow-up renal recommendations. If his creatinine continues to trend up and he may require dialysis at some point. The patient had positive cardiac enzymes, likely a component demand ischemia in the setting of his infection. His cardiac enzymes have trended down. He was started on heparin for his non-ST elevation myocardial infarction (NSTEMI). - follow-up results of ECHO Deep vein thrombosis (DVT) prophylaxis on anticoagulation with heparin. FULL CODE. Total critical care time spent, not including procedures, approximately 40 minutes. MTDD
[2018-08-30 11:31] LABS: MB/CK RELATIVE INDEX 2.67 (< OR =4); TROPONIN I 1.02 NG/ML (< 0.10)
[2018-08-30] MEDS: HEPARIN SOD (PORCINE) 5000 UNITS/ML VIAL IV PRN (12:19)
--- NOTE | 2018-08-30 14:52 | IPN ---
DATE: 08/29/2018 Colton Dorman was transferred to the intensive care unit (ICU) because of desaturation, worsening hypoxia, drowsiness and lethargy. He was seen in consultation by Dr. Moya. He has persistent fever in spite of appropriate antibiotics for the past 72 hours, on vancomycin and Zosyn. He has developing worsening renal failure. A Llanes catheter was placed. Temperature is 102.5, pulse 104, respirations 30, blood pressure 128/61, oxygen saturation 95% on 50% VentiMask. HEART: Normal. S1, S2. Tachycardic. Distant. LUNGS: Decreased breath sounds bilaterally at the bases. No crackles. ABDOMEN: Soft, nontender. No visceromegaly. EXTREMITIES: No edema. Left foot had an EYSSENIA wrap. I did not open the dressing. According to Kataj, his nurse, the wounds looked great. I saw it last night and there was no purulent discharge. No cellulitis. LABORATORY DATA: White count is 16.7, hemoglobin 10.4, hematocrit 33, platelets 240. Sodium 140, potassium 3.9, chloride 105, bicarbonate 27, BUN 49, creatinine 4.24, glucose 163, calcium 8.6, lactic acid 1.1. Bilirubin 0.4, AST 42, ALT 11, alkaline phosphatase 64. Total CPK 409. Troponin 1.57. CRP 31.8. Lipase 86. Procalcitonin on 08/27/2018 was 0.38. Blood cultures two sets were ordered on 08/29/2018 and are pending. Methicillin-resistant Staphylococcus aureus (MRSA) screen is pending. IMAGING STUDIES: Chest x-ray Shows right upper lobe and bilateral lower lobe infiltrates, portable one-view chest. IMPRESSION: 1. Hospital-acquired/aspiration pneumonia postoperatively. Patient on intravenous (IV) vancomycin and Zosyn in spite of 72 hours of antibiotics. The patient has remained febrile with temperatures up to 102. Possibly atypical versus viral infection. His procalcitonin was not significantly elevated. Dr. Moya has added doxycycline to his regimen. 2. Diabetic foot ulcer status post incision and drainage (I and D) with culture positive for methicillin-sensitive Staphylococcus aureus (MSSA). Clinically, Dr. Reeves did not fear he had osteomyelitis, so appropriately covered with current antibiotics, Zosyn. 3. Acute kidney injury. Dr. Echeverria is following patient and Llanes catheter has been placed. PLAN: 1. If methicillin-resistant Staphylococcus aureus (MRSA) screen is negative. Please discontinue IV VANCOmycin, especially that doxycycline has 96% coverage of MRSA pathogens. 2. Obtain respiratory panel to rule out possibly of viral pneumonia. Urine Legionella antigen has been sent and is pending. Urine pneumococcal antigen is pending. MTDD
[2018-08-30] MEDS: FUROSEMIDE 20 MG/2 ML VIAL (J1940) IV SCH (17:33)
--- NOTE | 2018-08-30 18:41 | ECHO ---
DATE OF PROCEDURE: 08/30/2018 AGE: 77 GENDER: Male HEIGHT: 73 inches WEIGHT: 242 pounds BODY SURFACE AREA: 2.34 m2. PATIENT LOCATION: Inpatient, ICU, room 3207 REFERRING PHYSICIAN: Venancio Song MD INDICATION: Heart failure, (unspecified). 2-D MEASUREMENTS: RV: 4.2 cm LV: 5.0 cm Septum: 1.2 cm Posterior wall: 1.1 cm Aortic root: 3.6 cm LA: 3.7 cm LVEF: 75% DOPPLER MEASUREMENTS: AV: 1.2 m/s LVOT: 1.0 m/s LVOT diameter: 2.0 cm MV-E: 59, A: 81, EA ratio: 0.7 Early mitral deceleration time: 144 ms E prime: 6.3, A prime 8.9, E/E prime ratio: 9.4 PCWP: 12.8 mmHg PV: 1.0 m/s Pulmonary artery acceleration time: 106 ms RVSP: 35 mmHg IVC: 1.8 cm COMMENTS Normal sinus rhythm without intraventricular conduction disturbance. Technically challenging study in light of the patient's body habitus but diagnostically useful information was still obtained. M-mode and two-dimensional echocardiography was performed with pulsed, continuous wave, color flow and tissue Doppler studies. Borderline left ventricular hypertrophy with hyperkinetic wall motion. Left atrial size upper limits of normal with Doppler evidence of an impairment of LV diastolic function with current estimated mean left atrial pressure upper limits of normal. Right heart chamber sizes upper limits of normal to slightly dilated with normal wall motion and mild pulmonary hypertension. Normal IVC size and collapse against an elevated central venous pressure. Normal appearing and functioning valvular structures. Normal aortic root size. No apparent intracardiac mass or pericardial effusion.
[2018-08-30] MEDS: SIMVASTATIN 20 MG TAB PO SCH (20:52)
--- NOTE | 2018-08-30 22:00 | IPNPDOC ---
Subjective Date Seen The patient was seen on 08/30/18. Subjective Chief Complaint/HPI Pt was seen and examined at bedside. Pt is confused and lethargic not verbalizing any complaints. Pt on Vapoterm maintaining O2 sats. BP , HR rev iewed. Pt continues with high temp along with leukocytosis. Pt appears comfortable. Does not grimace due to pain. General: Denies: Chills, Night Sweats, Fatigue, Malaise Constitutional: Denies: Chills, Fever, Night Sweats Eyes: Denies: Pain, Vision change ENT: Denies: Head Aches, Ear Pain, Dysphagia Skin: Denies: Rash, Lesions, Breakdown Pulmonary: Denies: Dyspnea, Cough Cardiovascular: Denies: Chest Pain, Palpitations, Orthopnea, Paroxysmal Noc. Dyspnea, Lt Headedness Gastrointestinal: Denies: Nausea, Vomiting, Abdominal Pain, Diarrhea, Constipation Genitourinary: Reports: Retention; Denies: Dysuria, Frequency Hematologic: Denies: Bruising, Bleeding Excessively Musculoskeletal: Denies: Neck Pain, Back Pain, Joint Pain, Muscle Pain, Spasms Neurological: Denies: Weakness, Numbness, Change in speech, Confusion Psych: Reports: Mood Normal Objective Physical Examination General Exam: Positive: Alert, No Acute Distress Eye Exam: Positive: PERRLA, Conjunctiva & lids normal, EOMI; Negative: Sclera icteric ENT Exam: Positive: Atraumatic, Mucous membr. moist/pink (dry mucous membranes); Negative: Pharynx Normal, Tongue Midline, Pharyngeal Edema, Nares Patent, Tympanic Membranes Normal, Ext Auditory Canal Nml, Pinna Normal, Other ENT Neck Exam: Positive: Supple; Negative: JVD, thyromegaly Chest Exam: Positive: Diminished; Negative: Clear to auscultation, Normal air movement, Rales, Rhonchi, Wheezing, Other Heart Exam: Positive: Rate Normal, Regular Rhythm, Normal S1, Normal S2 Telemetry: Positive: No significant arrhythmia Abdomen Exam: Positive: Normal bowel sounds, Soft Male Exam: Positive: Normal Genital Exam Extremity Exam: Positive: Normal pulses; Negative: Clubbing, Cyanosis, Edema Skin Exam: Positive: Other skin issue (left foot unwrapped, diabetic wound on the plantar surface with no drainage, tissue seems to be healing well.) Neuro Exam: Positive: Normal Gait, Normal Speech, Cranial Nerves 3-12 NL, Reflexes 2+ Psych Exam: Positive: Oriented x 3 Assessment /Plan Assessment 1-Acute Hypoxic Respiratory Failure: multifactorial in view of possible aspiration pneumonia,volume overload due to MOHINDER on CKD, would maintain O2 sats >90% Cont. on vapoterm, Beta-agonist Neb PRN , low threshold for intubation. Frequent suctioning and respiratory care. Pulmonary and critical care medicine monitor closely, recommendations appreciated. 2-Pneumonia: possible aspiration pneumonia, Pt on broad spectrum Abx as per ID, monitor Vanc level as per pharmacy, CXR reviewed. 3-MOHINDER on CKD: etiology under investigation, Llanes Cath in place for strict Is and Os, Cont. diuretics as per nephro, monitor Cr. and electrolytes daily supplement accordingly. 4-CHF Diastolic 5-Diabetic foot ulcer with OM of metatarsal: daily wound care, Cont Abx Plan/VTE VTE Prophylaxis Ordered?: Yes VS, I&O, 24H, Fishbone Vital Signs/I&O Vital Signs Date Time Temp Pulse Resp B/P (MAP) Pulse Ox O2 Delivery O2 Flow Rate FiO2 08/30/18 20:29 112 24 08/30/18 20:29 96 30.0 60 08/30/18 20:00 99.1 142/70 (94) 08/30/18 17:07 Nasal Cannula I&O- Last 24 Hours up to 6 AM 08/30/18 06:00 Intake Total 2355 ml Output Total 845 ml Balance 1510 ml Laboratory Data 24H LABS Laboratory Tests 2 08/29/18 22:20: Blood Gas Bicarbonate Standard 20.6L, Arterial Blood pH 7.406, Arterial Blood Partial Pressure CO2 31.5L, Arterial Blood Partial Pressure O2 73.3L, Arterial Blood Total CO2 20.3L, Arterial Blood HCO3 19.3L, Arterial Blood Base Excess - 4.6L, Arterial Blood Oxygen Saturation 94.6L 08/29/18 22:35: Activated Partial Thromboplast Time 55.1H 08/30/18 00:20: Bedside Glucose (Misc Panel) 152H 08/30/18 02:54: Total Creatine Kinase 411H, Creatine Kinase MB 6.0H, Creatine Kinase MB Relative Index 1.44, Troponin I 0.96#H 08/30/18 04:38: Nucleated Red Blood Cells % (auto) 0.0, Activated Partial Thromboplast Time 79.5H, Anion Gap 7L, Glomerular Filtration Rate 12.8L, Blood Urea Nitrogen 54H, Creatinine 4.71H, Sodium Level 140, Potassium Level 3.7, Chloride Level 108H, Carbon Dioxide Level 25, Calcium Level 8.0L 08/30/18 10:45: Activated Partial Thromboplast Time 60.3H, Total Creatine Kinase 176, Creatine Kinase MB 5.0H, Creatine Kinase MB Relative Index 2.67, Troponin I 1.02H 08/30/18 11:44: Bedside Glucose (Misc Panel) 185H 08/30/18 17:28: Bedside Glucose (Misc Panel) 206H 08/30/18 17:55: Activated Partial Thromboplast Time 91.4H 08/30/18 20:54: Bedside Glucose (Misc Panel) 161H CBC/BMP Laboratory Tests 08/30/18 04:38 Red Blood Count 3.48 L, Mean Corpuscular Volume 92.0, Mean Corpuscular Hemoglobin 29.0, Mean Corpuscular Hemoglobin Concent 31.6 L, Red Cell Distribution Width 14.0, Calcium Level 8.0 L Microbiology Microbiology 08/29/18 Blood Culture - Preliminary, Resulted No growth after 24 hours . All specim... 08/29/18 Blood Culture - Preliminary, Resulted No growth after 24 hours . All specim... 08/27/18 Blood Culture - Preliminary, Resulted No Growth after 72 hours. All specime... 08/27/18 Blood Culture - Preliminary, Resulted No Growth after 72 hours. All specime... 08/30/18 Stool Occult Blood (MG) - Final, Complete 08/29/18 Respiratory Virus Panel (PCR) (MG) - Final, Complete Influenza A H1-200808/28/18 MRSA Screen - Final, Complete 08/26/18 Gram Stain - Final, Complete 08/26/18 Sputum Culture - Final, Complete 08/23/18 Bacterial Culture - Final, Complete Corynebacterium Species 08/23/18 Anaerobic Culture - Final, Complete CHRISTOPHER HERNANDEZ MD Aug 30, 2018 22:00
[2018-08-31] VITALS (7 sets, daily range): BP systolic 123–141; BP diastolic 58–71
[2018-08-31] MEDS: IPRATROPIUM 0.5MG/ALBUTEROL 2.5MG INH SOL UD 3ML (DUONEB)(J7620) NEB SCH ×4 (00:41→20:42)
[2018-08-31] MEDS: DOXYCYCLINE HYCLATE 100 MG in D5W MINI-BAG PLUS 100 ML IV SCH ×2 (00:46→13:12)
[2018-08-31] MEDS: HumaLOG INSULIN (NovoLOG) PER UNIT SC SCH ×4 (00:46→17:35)
[2018-08-31] MEDS: PIPERACILLIN/TAZOBACTAM SOD 2.25 GM in D5W MINI-BAG PLUS 50 ML IV SCH ×4 (01:49→20:33)
[2018-08-31 04:38] LABS: BASO % 0.3 % (0.0-1.0); EOS # 0.2 10^3/uL (0.0-0.50); EOS % 1.4 % (0.0-3.0); HEMATOCRIT 30.5 % (42.0-52.0); HEMOGLOBIN 9.9 g/dl (13.5-17.5); LYMPH # 1.2 10^3/uL (1.5-4.5); LYMPH % 8.8 % (24.0-44.0); MEAN CORPUSCULAR HGB CONC 32.5 g/dl (32.0-36.5); MEAN CORPUSCULAR VOLUME 89.4 fl (80.0-96.0); MONO # 0.7 10^3/uL (0.0-0.8); MONO % 5.1 % (0.0-5.0); NEUTROPHILS # 11.2 10^3/uL (1.8-7.7); NEUTROPHILS % 83.4 % (36.0-66.0); PLATELET COUNT, AUTOMATED 247 10^3/uL (150-450); RED BLOOD COUNT 3.41 10^6/uL (4.30-6.10); WHITE BLOOD COUNT 13.4 10^3/uL (4.0-10.0)
[2018-08-31 04:53] LABS: INR 1.43; PROTHROMBIN TIME 17.7 SECONDS (12.1-14.4)
[2018-08-31 04:55] LABS: PARTIAL THROMBOPLASTIN TIME 80.8 SECONDS (25.4-37.6)
[2018-08-31 05:31] LABS: ALBUMIN 1.6 GM/DL (3.2-5.2); BILIRUBIN,TOTAL 0.3 MG/DL (0.2-1.0); C REACTIVE PROTEIN QUANTITATIV 34.7 MG/DL (0.00-0.30); CREATININE FOR GFR 4.91 MG/DL (0.70-1.30); GLOMERULAR FILTRATION RATE 12.2 (>42); POTASSIUM SERUM 3.4 MEQ/L (3.5-5.1); TOTAL PROTEIN 5.9 GM/DL (6.4-8.2)
--- NOTE | 2018-08-31 05:41 | IPN ---
DATE OF SERVICE: 08/30/2018 SUBJECTIVE: Colton is seen and examined this morning at the bedside in the intensive care unit. SUBJECTIVE: The patient is seen and examined this morning at the bedside in the intensive care unit overnight events are reviewed. He had periodic episodes of desaturation. He is now on Vapotherm. He remains persistently febrile. Temperature maximum (T-max) today 101.4. He had an echocardiogram that did demonstrate an elevated central venous pressure. His intravenous (IV) fluids have been discontinued. He is receiving low dose diuretics. The patient reports his breathing feels about the same. He denies shortness of breath at rest. He continues to have cough and reports the sputum has been clear. Laboratories show worsening renal function and his daily weights continued to trend upwards. VITAL SIGNS: Temperature 101.4, pulse 105, respiratory rate 30, blood pressure 135/65, saturating 97% on 75% FiO2. Intake yesterday was 2.9 liters. Urine output yesterday was 850. There were three bowel movements yesterday. He is net positive 2 liters in the past 24 hours. Weight in the bed scale today is 109.7 kg which is increased from prior. GENERAL: The patient is seen lying in bed in the intensive care unit. Head of bed elevated. The patient is drowsy but easily arousable, awake, alert and oriented x3 mentating appropriately and answers simple questions without delay, is cooperative with physical exam. He is cooperative with physical exam. NECK: His neck is supple. The jugular veins look only mildly elevated. CARDIAC: He is tachycardiac, regular rhythm S1, S2. There is trace edema in the lower extremities. LUNGS: The lungs show tachypnea but no accessory muscle use. There are scattered crackles bilaterally and occasional rhonchus. GENITOURINARY (): Shows Llanes catheter with urine. SKIN: Normal turgor and temperature. LABORATORY DATA: White count 16.6, hemoglobin 10.1, platelet 223. Sodium 140, potassium 3.7, bicarbonate 25, BUN 54, creatinine 4.7. Troponin 1.0. Respiratory viral panel returned back positive for influenza A. Blood cultures remained no growth for the past a 24 hours x2 sets. INPATIENT MEDICATIONS: I have started him on: - Lasix 20 mg intravenous (IV) twice a day - heparin drip - he is on heparin drip now. - Zosyn - he continues on Zosyn - doxycycline His remainder of medications are unchanged from prior. PROBLEMS: 1. 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 Baseline creatinine 2.0. His renal injury is secondary to pneumonia/infectious process. He has been receiving intravenous (IV) fluids for the past several days and is now exhibiting signs of mild volume overload. His echocardiogram did demonstrate an elevated central venous pressure (CVP). Given his significant pneumonic issues and supplemental oxygen requirements we wish to avoid any sort of fluid overload in this gentleman. He is presently nothing by mouth and his intravenous (IV) fluids have been discontinued since his intake now is minimal. I am starting him on low-dose diuretic, Lasix 20 mg IV twice a day. There is no urgent indication for dialysis at present. His electrolytes and acid base status are acceptable and he is responsive to the diuretic; however, he may progress to dialysis needs and we will continue to monitor for the same. Additionally, in view of the concomitant lung and kidney issues serologic studies are pending as well. 2. Multifocal pneumonia/hypoxemia. Viral panel did return positive for flu. He has been having increasing oxygen requirements, worsening leukocytosis and rising C-reactive protein (CRP) and ongoing high-grade fevers. He is followed by infectious diseases. He is receiving vancomycin and Zosyn and doxycycline was also recently added. He remains hemodynamically stable. Serologic studies are pending to rule out vasculitis or autoimmune process. 3. Elevated troponin. This is now down trending and the patient is on a heparin drip for [id number] myocardial infarction managed per the primary team.
[2018-08-31] MEDS: CLOPIDOGREL 75 MG TAB PO SCH (10:00)
[2018-08-31] MEDS: FLUTICASONE PROP 0.05% NASAL SPRAY 16 GM (FLONASE) NARES SCH (10:00)
[2018-08-31] MEDS: BENZONATATE 100 MG CAP PO SCH ×2 (10:01→20:33)
[2018-08-31] MEDS: FUROSEMIDE 20 MG/2 ML VIAL (J1940) IV SCH (10:01)
--- NOTE | 2018-08-31 11:22 | CCN ---
DATE: 08/31/2018 CRITICAL CARE PROGRESS NOTE: The patient was seen and examined this morning during bedside rounds. The patient's breathing has been slowly improving. He has been able to be weaned down on the Vapotherm to 30 liters per minute and FiO2 of 50%. The patient feels that his breathing has been improved this morning. He has not had any coughing since yesterday afternoon. He did not have any fevers overnight. His last fever was yesterday around noon time. The patient was given 40 mg IV Lasix yesterday and was then ordered an additional 20 mg IV Lasix twice a day. So, he received a total of 60 mg of IV Lasix yesterday and has had good urine output. PHYSICAL EXAMINATION: Temperature 98.9, pulse 92, respirations 27, blood pressure 123/58, oxygen saturation 94% on Vapotherm at 30 liters a minute with 50% FiO2. In 774, out 2420, net negative 1.6 liters. General: The patient is lying in bed on the Vapotherm, is awake and alert and oriented times three. He does not appear to be using any accessory muscles for respiration. HEENT: Normocephalic, atraumatic. Dry mucous membranes. Neck is supple. Trachea is midline. No palpable adenopathy. Cardiovascular: Regular rate and rhythm. Normal S1, S2. Unable to appreciate murmurs. Pulmonary: Patient has improvement in his crackles today. He still has an occasional coarse rhonchi in the right base. Abdomen is obese, soft, nontender to palpation. Extremities: There is no significant lower extremity edema today bilaterally. Left foot has a Charcot deformity and he has a dressing around his left foot, which appears clean, dry and intact. LABORATORY DATA: WBC 13.4, hemoglobin 9.9, platelets 247. Sodium 141, potassium 3.4, chloride 108, bicarbonate 26, BUN 68, creatinine 4.91, glucose is 217. Serologies are pending but C3/C4 was within normal limit. Microbiology: influenza A positive on the respiratory panel. Blood cultures are negative to date and repeat blood cultures are still negative. ASSESSMENT AND PLAN: The patient is a 77-year-old male with a history of diabetes, peripheral artery disease (PAD), chronic kidney disease (CKD), hypertension, hyperlipidemia, chronic diabetic foot ulcer on the left foot who presented initially with an infected foot ulcer with concern of osteomyelitis. The patient underwent a debridement surgery and postoperatively developed nausea and vomiting as well as some increasing cough, fever and leukocytosis. The patient had CT scan done, which suggested possible multifocal pneumonia likely secondary to aspiration. He was started on broad-spectrum antibiotics. However, he continued to be febrile and continued to have increasing leukocytosis and C-reactive protein (CRP). The patient was also having worsening of his hypoxemic respiratory failure and was transferred to the intensive care unit (ICU) for closer monitoring. Acute hypoxemic respiratory failure in the setting of multifocal aspiration pneumonia as well as a possible viral pneumonia with a positive influenza A. - Methicillin-resistant Staphylococcus aureus (MRSA) screen was negative. Vancomycin was discontinued. Continue with Zosyn for broad coverage and doxycycline for atypical coverage. - Will followup repeat procalcitonin to help determine antibiotic discontinuation. - Followup urine Legionella and strep pneumoniae and Mycoplasma. - Followup results of his antineutrophil cytoplasmic antibodies ( ANCA) panel given his CT finding and his worsening renal failure. Vasculitis is possible although less likely. - The patient is on Vapotherm currently and his oxygenation has been improving. Will continue to wean down his settings of Vapotherm and switch to nasal cannula oxygen at some point if tolerated Patient has acute on chronic renal failure. The patient was given 40 mg IV Lasix and then was started by renal on 20 mg IV twice a day. He has had good urine output overnight and he is net negative today. - Continue Lasix as per renal at 20 mg IV twice a day and monitoring his ins and outs. - His creatinine continues to be increasing; however, he has good urine output and he has no significant acidosis or electrolyte abnormalities which require urgent dialysis. - Replete electrolytes as needed. Patient with demand ischemia/non-ST elevation myocardial infarction (NSTEMI). His cardiac enzymes have trended down. - The patient is on heparin as per cardiology. - Follow-up results of echo. Deep venous thrombosis (DVT) prophylaxis, on heparin. Diet- advance diet to liquids as tolerated, monitor for aspiration FULL CODE. Total critical care time spent not including procedures approximately 35 minutes. MTDD
[2018-08-31] MEDS: HEPARIN DRIP 25,000 UNITS in APPROPRIATE DILUENT 1 EA IV SCH (11:44)
[2018-08-31] MEDS ORDERED: POTASSIUM CHLORIDE 10% LIQ 20 MEQ/15 ML UDC PO ONE (13:00)
[2018-08-31] MEDS ORDERED: KCL 20MEQ IN 100ML SWI (KRUN) 20 MEQ in APPROPRIATE DILUENT 1 EA IV ONE ×2 (14:45)
[2018-08-31] MEDS: KCL 10MEQ/100ML SWI (KRUN) X 2 DOSES (20MEQ TOTAL) IV SCH ×6 (15:54→17:38)
--- NOTE | 2018-08-31 18:02 | IPN ---
DATE: 08/31/2018 Mr. Dorman finally is doing better. He is afebrile. He is in a good mood today. He is eating just clear liquids. He is not hungry but no nausea, vomiting. He has some loose stools. His breathing has improved. He has been able to be weaned off the Vapotherm to 50% FiO2. His coughing has decreased. The patient has diuresed with Lasix 40 mg intravenous (IV). PHYSICAL EXAMINATION: Temperature is 97.8, pulse 102, respirations 28, blood pressure 138/65, oxygen saturation 92% on FiO2 of 50%. His last temperature was 101.4 at 24 hours ago. HEART: Normal S1, S2 with no murmurs. LUNGS: Expiratory wheezes and few crackles at the bases. ABDOMEN: Soft, nontender. No hepatosplenomegaly. EXTREMITIES: No edema but diabetic foot ulcer, right foot, with granulation tissue. Exposed tendon. No purulence. No drainage. No surrounding cellulitis. LABORATORY DATA: White count is 13.4, hemoglobin 9.9, hematocrit 30.5, platelets 247, 83% neutrophils, 8% lymphocytes, 5% monocytes. Sodium 141, potassium 3.4, chloride 108, bicarbonate 26, BUN 68, creatinine 4.91, glucose 217, calcium 8, magnesium 2.1, CRP 35.6 Influenza AH1 positive on August 29. Methicillin-resistant Staphylococcus aureus (MRSA) screen was negative. IMPRESSION: 1. Acute hypoxemic respiratory failure in the setting of multifocal pneumonia, possibly influenza versus aspiration. The patient did not respond to 4 days of IV antibiotics, broad spectrum, so my suspicion is that it was the flu. MRSA screen was negative. Vancomycin was discontinued. Influenza, Legionnaire, and pneumococcal antigen are still pending, and if these are negative, then doxycycline could be discontinued and the patient could be switched to oral antibiotic to cover his diabetic foot ulcer. 2. Diabetic foot ulcer. Culture positive for methicillin-sensitive Staphylococcus aureus (MSSA), currently on Zosyn but eventually could be switched to by mouth Keflex. 3. MOHINDER improving DC bee can get strict I/o patient not incontinent 4. Influenza pneumonia resolving fever resolved after 5 days too late to treat PLAN: The case has been discussed with Dr. Moya who agrees with the plan. At this time, it is too late to treat for the fluid. He has defervesced, and with his acute kidney injury Tamiflu is not recommended with a creatinine of 4.91. MTDD
[2018-08-31] MEDS ORDERED: SLF 3 ML SYR IV PRN (19:30)
[2018-08-31] MEDS: SIMVASTATIN 20 MG TAB PO SCH (20:33)
[2018-08-31] MEDS: SLF 3 ML SYR IV SCH (20:34)
[2018-09-01] VITALS: BP 150/72
[2018-09-01 00:09] LABS: BODY FLUID CULTURE Not Indicated (.); LEGIONELLA ANTIGEN URINE Negative (Negative); ORGANISM ID Not indicated. (.); SPECIMEN SOURCE Urine (.); URINE STREP PNEUMONIAE ANTIGEN Negative (Negative)
[2018-09-01] MEDS: DOXYCYCLINE HYCLATE 100 MG in D5W MINI-BAG PLUS 100 ML IV SCH ×2 (00:11→12:45)
[2018-09-01] MEDS: HumaLOG INSULIN (NovoLOG) PER UNIT SC SCH ×5 (00:17→17:31)
[2018-09-01] MEDS: PIPERACILLIN/TAZOBACTAM SOD 2.25 GM in D5W MINI-BAG PLUS 50 ML IV SCH ×4 (01:02→19:35)
[2018-09-01] MEDS: IPRATROPIUM 0.5MG/ALBUTEROL 2.5MG INH SOL UD 3ML (DUONEB)(J7620) NEB SCH ×4 (01:39→19:03)
[2018-09-01 04:00] VITALS: BP 162/75
[2018-09-01 04:45] LABS: HEMOGLOBIN 9.5 g/dl (13.5-17.5); MEAN CORPUSCULAR HEMOGLOBIN 28.1 pg (27.0-33.0); MEAN CORPUSCULAR HGB CONC 31.7 g/dl (32.0-36.5); MEAN CORPUSCULAR VOLUME 88.8 fl (80.0-96.0); PLATELET COUNT, AUTOMATED 249 10^3/uL (150-450); RED BLOOD COUNT 3.38 10^6/uL (4.30-6.10); WHITE BLOOD COUNT 10.5 10^3/uL (4.0-10.0)
[2018-09-01 05:06] LABS: C REACTIVE PROTEIN QUANTITATIV 25.9 MG/DL (0.00-0.30); CALCIUM LEVEL 8.5 MG/DL (8.8-10.2); CREATININE FOR GFR 4.82 MG/DL (0.70-1.30); GLOMERULAR FILTRATION RATE 12.5 (>42); MAGNESIUM LEVEL 2.2 MG/DL (1.8-2.4); POTASSIUM SERUM 3.3 MEQ/L (3.5-5.1)
[2018-09-01] MEDS: SLF 3 ML SYR IV SCH ×3 (05:56→22:30)
--- NOTE | 2018-09-01 06:38 | IPN ---
DATE OF SERVICE: 08/31/2018 SUBJECTIVE: The patient seen and examined this morning at the bedside in the intensive care unit. His is present. Overnight events are reviewed. He has diuresed nicely with two small doses of Lasix yesterday. His supplemental oxygen requirements have been decreased down to a FIO2 of 50%. He has not had any fevers in the past 24 hours. He thinks his breathing is a little better. His CRP continues to rise. Temperature 98.5, pulse 98, respiratory rate 28, blood pressure 137/66, saturating 90-95% on 45% FiO2. Intake yesterday was 770, urine output yesterday was 2420, net negative 1650. Weight in the bed scale today is 104.8 kg. General: The patient is seen lying fairly flat in bed in the intensive care unit, elderly male, drowsy, but easily arousable and awake and alert and oriented times three, in no acute respiratory distress. The mucous membranes are dry. Neck is supple. Jugular veins are not elevated. Cardiac: S1 and S2. Palpable radial pulse. Peripheries are negative for edema. Pulmonary: The patient is tachypneic, but there is no accessory muscle use. There is scattered rhonchus. The abdomen is obese and soft. Genitourinary: Shows Llanes catheter with urine. Extremities are negative for edema. The left foot has dressings LABORATORY DATA: Sodium 141, potassium 3.4, bicarbonate 26, BUN 68, creatinine 4.9, CRP 34, magnesium 2.1, hemoglobin 9.9, white count 13. INPATIENT MEDICATIONS: He is receiving both IV and oral potassium supplementation. His vancomycin was stopped by the primary team. I have discontinued his Lasix. His heparin drip has also been stopped. PROBLEMS: 1. Non oliguric renal failure superimposed on chronic kidney disease (CKD) stage 3B to stage 4. Baseline creatinine 2.0. Renal injury secondary to pneumonia/infectious process. Rule out vasculitic/autoimmune process. Serologies are pending. He received IV fluids for several days and then exhibited signs of mild volume overload. Fluids were subsequently stopped. Yesterday he received a total of 60 mg of IV Lasix with excellent diuresis. Today he appears to be auto diuresing. It looks like his creatinine has plateaued. I am discontinuing the Lasix doses for today. His electrolytes are acceptable. There is no urgent indication for dialysis at present. Given the plateauing of his serum creatinine coupled with the improvement in urine output, I am hopeful that these are early signs of renal recovery. 2. Acute hypoxemic respiratory failure, possible multi focal aspiration pneumonia versus viral influenza A. The patient is followed by infectious diseases. His vancomycin was discontinued. At present he continues on doxycycline and Zosyn. He has been afebrile the past 24 hours. His white count has improved, although his CRP is still up trending. Given the concomitant pulmonary and renal in issues, serologies were sent and they are pending. 3. Hypokalemia. It is due to improve urine output and diuretic use. He is receiving vigorous potassium supplementation. His magnesium level was acceptable. 4. Diastolic congestive heart failure. He responded well to Lasix yesterday. His urine output today also seems to be brisk and I do not feel that he needs further diuretic dosing at this time. His daily weights are now down trending. His oral intake has been fairly minimal. His volume status will be assessed daily and diuretics will be dosed as needed.
[2018-09-01 08:34] VITALS: BP 141/64
[2018-09-01] MEDS: CLOPIDOGREL 75 MG TAB PO SCH (09:11)
[2018-09-01] MEDS: POTASSIUM CHLORIDE 10 MEQ SR TABLET PO SCH ×3 (09:11→20:47)
[2018-09-01] MEDS: BENZONATATE 100 MG CAP PO SCH ×2 (09:11→20:47)
[2018-09-01] MEDS: FLUTICASONE PROP 0.05% NASAL SPRAY 16 GM (FLONASE) NARES SCH (09:11)
[2018-09-01 12:28] VITALS: BP 153/92
--- NOTE | 2018-09-01 13:32 | IPN ---
DATE OF VISIT: 09/01/2018 at 9:03 a.m. CHIEF COMPLAINT: The patient is seen at bedside for evaluation of his left foot. The patient is talking and is eating. The patient states he is having no pain in his left foot. His dressing is intact on the left foot. The dressing was removed and the wound on the left foot shows good granulation tissue with no active drainage. The two incision and drainage incisions on the plantar aspect of his foot under the third and fourth metatarsal base is healed. Upon palpation, there is no fluid accumulation. Upon compression of the wound, there is no expressed fluid from the site which displays good granulation tissue. The wound measures 4.5 cm x 4.5 cm. The depth was not explored with a sterile Q-tip today. His left foot bone culture only grew Corynebacterium, probable contaminant. The patient's respiratory panel of the nasopharynx was positive for influenza A. Blood culture was no growth after 48 hours. ASSESSMENT: Healing debridement with bone biopsy plantar surface left foot. Negative for osteomyelitis. Positive for abscess and resolving cellulitis. PLAN: A dry sterile dressing was applied. Would continue applying a dry sterile dressing once a day allowing for any drainage to be removed. The patient can get out of his bed and ambulate with his JENA walker. This should adequately off load his foot. His questions were answered.
[2018-09-01] MEDS ORDERED: VANCOMYCIN HCL 1,000 MG, VIAL MATE ADAPTER 1 EACH in D5W 250 ML IV SCH (16:00)
[2018-09-01 16:34] VITALS: BP 159/73
--- NOTE | 2018-09-01 16:55 | IPN ---
DATE: 09/01/2018 Colton is doing much better. He is still in the intensive care unit (ICU), but they are discussing transferring him to the progressive care unit (PCU). Oxygen is being tapered down. He had mild shortness of breath, cough has improved. No fever or chills. He has diuresed with Lasix. He still has a Llaens catheter. No nausea, vomiting or diarrhea. His appetite is improving. Temperature is 98.4, pulse 89, respiratory rate 28, blood pressure 162/75, oxygen saturation 92-94% on FiO2 of 40% with high flow. His last temperature was 08/30/2018 at noon. Heart: Normal, S1, S2. No murmurs. Lungs: A few crackles at the bases. Abdomen: Soft, nontender. No hepatosplenomegaly. Extremities: No edema. Left foot: Diabetic foot ulcer with granulation tissue. No purulence. No drainage. LABORATORY DATA: White count is 10.5, hemoglobin 9.5, hematocrit 30, platelets 249. Sodium 140, potassium 3.3, chloride 106, bicarbonate 26, BUN 74, creatinine 4.82, glucose 301, calcium 8.5, magnesium 2.2, and CRP 25.9. Urine pneumococcal antigen and Legionnaire antigen were negative. Respiratory panel was positive for influenza A. IMPRESSION: 1. Respiratory failure due to influenza A. Negative Legionnaire, pneumococcal antigen. I would discontinue IV vancomycin and doxycycline. Continue with Zosyn. That should cover for his questionable aspiration pneumonia versus influenza and diabetic foot ulcer. 2. Acute kidney injury. The patient is diuresing well. Please discontinue Llanes catheter. You can obtain strict intake and output. The patient is alert and oriented. 3. Diastolic congestive heart failure, responding to Lasix. 4. 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 Culture positive for methicillin-sensitive Staphylococcus aureus (MSSA). Once kidney function improves and patient is out of the ICU, the patient could switch cephalexin for outpatient management. PLAN: Currently, patient day #7 of IV Zosyn. This will be continued throughout the weekend. On Tuesday, switch the patient to oral Keflex for diabetic foot ulcer and osteomyelitis, and MSSA if continues to clinically improve. As far as influenza, this was not treated because by the time the patient had a specimen sent and he had defervesced and it was 96 hours after symptoms had developed. MTDD
[2018-09-01 20:00] VITALS: BP 156/66
[2018-09-01] MEDS: SIMVASTATIN 20 MG TAB PO SCH (20:47)
[2018-09-01] MEDS ORDERED: HumaLOG INSULIN (NovoLOG) PER UNIT SC SCH (21:00)
--- NOTE | 2018-09-01 23:13 | IPNPDOC ---
Text Note Date of Service The patient was seen on 09/01/18. NOTE Pt was seen and examined at bedside. Pt is sitting in chair on NC O2 sat90%. Pt is awake and alert. Pt responds well to conversation. at bedside. Denies any chest pain or lightheadedness. Significant improvement noted since last evaluation. Mental status has greatly improved. Kidney function has stabilized with good response to diuretics, No fever overnight, WBC trending down. General: Denies: Chills, Night Sweats, Fatigue, Malaise Eyes: Denies: Pain, Vision change ENT: Denies: Head Aches, Ear Pain, Dysphagia Skin: Denies: Rash, Lesions, Breakdown Pulmonary: Denies: Dyspnea, Cough Cardiovascular: Denies: Chest Pain, Palpitations, Orthopnea, Paroxysmal Noc. Dyspnea, Lt Headedness Gastrointestinal: Denies: Nausea, Vomiting, Abdominal Pain, Diarrhea, Constipation Genitourinary: Reports: Retention; Denies: Dysuria, Frequency Hematologic: Denies: Bruising, Bleeding Excessively Musculoskeletal: Denies: Neck Pain, Back Pain, Joint Pain, Muscle Pain, Spasms Neurological: Denies: Weakness, Numbness, Change in speech, Confusion Psych: Reports: Mood Normal Physical Examination General Exam: Positive: Alert, No Acute Distress Eye Exam: Positive: PERRLA, Conjunctiva & lids normal, EOMI; Negative: Sclera icteric ENT Exam: Positive: Atraumatic, Mucous membr. moist/pink (dry mucous membranes); Negative: Pharynx Normal, Tongue Midline, Pharyngeal Edema, Nares Patent, Tympanic Membranes Normal, Ext Auditory Canal Nml, Pinna Normal, Other ENT Neck Exam: Positive: Supple; Negative: JVD, thyromegaly Chest Exam: Positive: Diminished; Negative: Clear to auscultation, Normal air movement, Rales, Rhonchi, Wheezing, Other Heart Exam: Positive: Rate Normal, Regular Rhythm, Normal S1, Normal S2 Telemetry: Positive: No significant arrhythmia Abdomen Exam: Positive: Normal bowel sounds, Soft Male Exam: Positive: Normal Genital Exam Extremity Exam: Positive: Normal pulses; Negative: Clubbing, Cyanosis, Edema Skin Exam: Positive: Other skin issue (left foot unwrapped, diabetic wound on the plantar surface with no drainage, tissue seems to be healing well.) Neuro Exam: Positive: Normal Gait, Normal Speech, Cranial Nerves 3-12 NL, Reflexes 2+ Psych Exam: Positive: Oriented x 3 Vital Signs Date Time Temp Pulse Resp B/P (MAP) Pulse Ox O2 Delivery O2 Flow Rate FiO2 09/02/18 00:00 98.0 98 20 158/76 (103) 94 5.0 09/02/18 00:00 5.0 09/01/18 20:00 5.0 09/01/18 20:00 98.9 106 22 156/66 (96) 89 5.0 09/01/18 19:00 94 24 92 5.0 09/01/18 18:00 96 26 94 5.0 09/01/18 17:45 94 26 93 5.0 09/01/18 17:45 93 5.0 09/01/18 17:00 96 25 90 20.0 40 09/01/18 16:38 91 20.0 40 09/01/18 16:34 95 26 159/73 (101) 92 20.0 40 09/01/18 16:00 98.3 97 26 88 20.0 40 09/01/18 16:00 20.0 40 09/01/18 15:00 98 26 94 20.0 40 09/01/18 14:00 100 24 93 20.0 40 09/01/18 13:00 99 26 92 20.0 40 09/01/18 12:28 98.2 97 26 153/92 (112) 89 25.0 40 09/01/18 12:00 20.0 40 09/01/18 11:30 25.0 40 09/01/18 11:00 97 26 95 25.0 40 09/01/18 10:00 99 24 90 25.0 40 09/01/18 09:00 102 25 95 25.0 40 09/01/18 08:37 92 30.0 45 09/01/18 08:34 98.5 104 25 141/64 (89) 95 25.0 40 09/01/18 08:00 25.0 40 09/01/18 04:00 98.4 89 28 162/75 (104) 94 30.0 45 09/01/18 04:00 30.0 45 09/01/18 03:30 91 86 30.0 60 09/01/18 01:39 92 30.0 45 Intake & Output 09/02/18 06:00 Intake Total 1310 ml Output Total 900 ml Balance 410 ml Laboratory Tests 09/01/18 03:35: Bedside Glucose (Misc Panel) 295H 09/01/18 04:23: White Blood Count 10.5H, Red Blood Count 3.38L, Hemoglobin 9.5L, Hematocrit 30.0L, Mean Corpuscular Volume 88.8, Mean Corpuscular Hemoglobin 28.1, Mean Corpuscular Hemoglobin Concent 31.7L, Red Cell Distribution Width 14.2, Platelet Count 249, Nucleated Red Blood Cells % (auto) 0.0, Activated Partial Thromboplast Time 51.4H, Blood Urea Nitrogen 74H, Creatinine 4.82H, Sodium Level 140, Potassium Level 3.3L, Chloride Level 106, Carbon Dioxide Level 26, Calcium Level 8.5L, Anion Gap 8, Glomerular Filtration Rate 12.5L, Fasting Glucose 301H, Magnesium Level 2.2, C-Reactive Protein, Quantitative 25.90H 09/01/18 08:42: Bedside Glucose (Misc Panel) 260H 09/01/18 12:31: Bedside Glucose (Misc Panel) 314H 09/01/18 17:21: Bedside Glucose (Misc Panel) 338H 09/01/18 19:38: Bedside Glucose (Misc Panel) 335H 09/01/18 23:56: Total Creatine Kinase 135, Creatine Kinase MB 6.1H, Creatine Kinase MB Relative Index 4.52H, Troponin I 0.23H Microbiology 08/27/18 Blood Culture - Final, Complete NO GROWTH AFTER 5 DAYS 08/27/18 Blood Culture - Final, Complete NO GROWTH AFTER 5 DAYS 08/30/18 Stool Occult Blood (MG) - Final, Complete 08/29/18 Respiratory Virus Panel (PCR) (MG) - Final, Complete Influenza A H1-200808/28/18 MRSA Screen - Final, Complete 08/26/18 Gram Stain - Final, Complete 08/26/18 Sputum Culture - Final, Complete 08/23/18 Bacterial Culture - Final, Complete Corynebacterium Species 08/23/18 Anaerobic Culture - Final, Complete Current Medications Medications (Trade) Dose Ordered Sig/Wyatt Route PRN Reason Start Time Stop Time Status Last Admin Dose Admin Acetaminophen (Tylenol Tab) 650 mg Q4HP PRN PO PAIN OR FEVER 08/24/18 13:45 08/30/18 12:11 650 MG Albuterol/ Ipratropium (Duoneb (Ipr 0.5mg/Alb 2.5mg)) 3 ml RQ6H NEB 08/30/18 00:00 09/01/18 19:03 3 ML Amlodipine Besylate (Norvasc) 5 mg DAILY PO 08/19/18 09:00 Future hold 08/29/18 09:49 5 MG Benzonatate (Tessalon Perles) 100 mg BID PO 08/24/18 03:30 09/01/18 20:47 100 MG Clopidogrel Bisulfate (PLAVix) 75 mg DAILY PO 08/19/18 09:00 Future hold 09/01/18 09:11 75 MG Fluticasone Propionate (Flonase 0.05% Nasal [place]) 2 spray DAILY NARES 08/24/18 03:30 09/01/18 09:11 2 SPRAY Insulin Human Lispro (HumaLOG INSULIN) SEE PROTOCOL TABLE QHS SC 09/01/18 21:00 09/01/18 20:47 4 UNITS Metoprolol Tartrate (Lopressor) 25 mg BID PO 08/18/18 21:00 Future hold 08/29/18 09:49 25 MG Miscellaneous (Unresolved Clarification Entry) SEE LABEL COMMENTS DAILY XX 09/01/18 09:00 09/01/18 20:12 1 EA Ondansetron HCl (ZOFRAN INJection) 4 mg Q4HP PRN IV NAUSEA OR VOMITING 08/24/18 09:00 08/28/18 09:35 4 MG Piperacillin Sod/ Tazobactam Sod 2.25 gm/Dextrose 50 ml @ 100 mls/hr Q6H IV 08/26/18 20:00 09/01/18 19:35 100 MLS/HR Potassium Chloride (Micro-K Extencaps) 20 meq TID PO 09/01/18 09:00 09/01/18 20:47 20 MEQ Simvastatin (Zocor) 20 mg QHS PO 08/18/18 21:00 09/01/18 20:47 20 MG Sodium Chloride (Saline Lock Flush) 2 ml SLF IV 08/31/18 22:00 09/01/18 22:30 2 ML 1-Acute Hypoxic Respiratory Failure: multifactorial in view of possible aspiration pneumonia,volume overload due to MOHINDER on CKD, would maintain O2 sats >90% Cont. on NC, Beta-agonist Neb PRN , Pt respiratory status has improved significantly. Frequent suctioning and respiratory care. Pulmonary and critical care medicine monitor closely, recommendations appreciated. 2-Pneumonia: possible aspiration pneumonia, Pt was on broad spectrum Abx as per ID, Vanc and Doxy have been discontinued. Swallow evaluations, follow aspirations precautions closely. No more fevers. WBC trending down. 3-MOHINDER on CKD: etiology under investigation, Volume status improved , Cr. stable, Llanes Cath DC. Nephrology recommendations appreciated. 4-CHF Diastolic 5-Diabetic foot ulcer with OM of metatarsal: daily wound care, Cont Zosyn, Switch to Keflex as per ID on Tuesday Transfer to PCU SW/[facility] PT/OT VS,Supriya, I+O VS, Supriya, I+O Laboratory Tests 09/01/18 04:23 Red Blood Count 3.38 L, Mean Corpuscular Volume 88.8, Mean Corpuscular Hemoglobin 28.1, Mean Corpuscular Hemoglobin Concent 31.7 L, Red Cell Distribution Width 14.2, Calcium Level 8.5 L Vital Signs Date Time Temp Pulse Resp B/P (MAP) Pulse Ox O2 Delivery O2 Flow Rate FiO2 09/01/18 20:00 5.0 09/01/18 20:00 98.9 106 22 156/66 (96) 89 09/01/18 17:00 40 08/30/18 17:07 Nasal Cannula I&O- Last 24 Hours up to 6 AM 09/01/18 06:00 Intake Total 2101 ml Output Total 2575 ml Balance -474 ml CHRISTOPHER HERNANDEZ MD Sep 01, 2018 23:13
[2018-09-02] VITALS: BP 158/76
[2018-09-02 00:27] LABS: CK-MB VALUE MASS 6.1 NG/ML (<3.6); MB/CK RELATIVE INDEX 4.52 (< OR =4); TROPONIN I 0.23 NG/ML (< 0.10)
[2018-09-02] MEDS: IPRATROPIUM 0.5MG/ALBUTEROL 2.5MG INH SOL UD 3ML (DUONEB)(J7620) NEB SCH ×4 (01:21→19:29)
[2018-09-02] MEDS: PIPERACILLIN/TAZOBACTAM SOD 2.25 GM in D5W MINI-BAG PLUS 50 ML IV SCH ×4 (01:29→20:36)
[2018-09-02 04:11] VITALS: BP 150/75
[2018-09-02 05:07] LABS: HEMOGLOBIN 10.4 g/dl (13.5-17.5); MEAN CORPUSCULAR HEMOGLOBIN 28.3 pg (27.0-33.0); MEAN CORPUSCULAR HGB CONC 31.5 g/dl (32.0-36.5); MEAN CORPUSCULAR VOLUME 89.9 fl (80.0-96.0); PLATELET COUNT, AUTOMATED 289 10^3/uL (150-450); RED BLOOD COUNT 3.67 10^6/uL (4.30-6.10); WHITE BLOOD COUNT 11.2 10^3/uL (4.0-10.0)
[2018-09-02 05:37] LABS: CALCIUM LEVEL 8.5 MG/DL (8.8-10.2); CREATININE FOR GFR 4.59 MG/DL (0.70-1.30); GLOMERULAR FILTRATION RATE 13.2 (>42); POTASSIUM SERUM 3.8 MEQ/L (3.5-5.1)
[2018-09-02] MEDS: SLF 3 ML SYR IV SCH ×3 (06:04→21:33)
[2018-09-02 08:00] VITALS: BP 154/82
[2018-09-02] MEDS: CLOPIDOGREL 75 MG TAB PO SCH (08:15)
[2018-09-02] MEDS: POTASSIUM CHLORIDE 10 MEQ SR TABLET PO SCH ×3 (08:16→20:36)
[2018-09-02] MEDS: FLUTICASONE PROP 0.05% NASAL SPRAY 16 GM (FLONASE) NARES SCH (08:16)
[2018-09-02] MEDS: BENZONATATE 100 MG CAP PO SCH ×2 (08:16→20:36)
[2018-09-02] MEDS: HumaLOG INSULIN (NovoLOG) PER UNIT SC SCH ×3 (08:21→17:53)
--- NOTE | 2018-09-02 10:33 | IPN ---
DATE OF SERVICE: 09/01/2018 SUBJECTIVE: Colton is seen and examined this morning at the bedside in the intensive care unit. He is sitting out of bed to the chair. He reports he feels better today. His supplemental oxygen requirements continue to be weaned. He has been afebrile for 48 hours. His laboratory studies are suggestive of early renal recovery. Vital signs: Temperature 98.9, pulse 106, respiratory rate 22, blood pressure 156/66, saturating 92% on 5 liters nasal cannula. Intake yesterday was 2215, urine output yesterday was 2850, net negative 635. Weight in the bed scale today is 105.1 kg. General: The patient is seen sitting in a chair in the intensive care unit (ICU), awake, alert, and interactive, and conversational. No acute respiratory distress. Mucous membranes are moist. Neck is supple. Jugular veins are not elevated. Cardiac: S1, S2, palpable radial pulse. Peripheries are negative for edema. Pulmonary: The patient is less tachypneic today. There is no accessory muscle use. There is scattered crackle, which is improved from prior. Abdomen is soft and nontender. Genitourinary: Shows Llanes catheter with urine. The left foot has dressings LABORATORIES: Sodium 140, potassium 3.3, bicarbonate 26, BUN 74, creatinine 4.8, magnesium 2.2, CRP 25. Hemoglobin 9.5, anti-GBM is negative, and ANCAs are negative. INPATIENT MEDICATIONS: Reviewed by me. His doxycycline has been discontinued. His insulin has been adjusted by the primary team, and he was started on potassium 20 mEq by mouth three times a day. PROBLEMS: 1. 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 Baseline creatinine 2.0. Renal injury secondary to pneumonia/infectious process. His serologies, including antineutrophil cytoplasmic antibody (ANCA) and anti-GBM and complements returned negative. His fever curve has improved, and he has been afebrile the past 48 hours. His C-reactive protein (CRP) is downtrending; and likewise, he is now showing plateau of creatinine; and I am hopeful that this is a sign of renal recovery. He has also had increased urine output without further need of diuretic. 2. Acute hypoxemic respiratory failure. Multifocal aspiration pneumonia versus influenza A. His antibiotics are being de-escalated by the primary team and infectious diseases. He does continue on Zosyn. His CRP has downtrended. He has been afebrile the past 48 hours. As his pneumonia improves, likewise his renal parameters also show improvement with increasing urine output and plateau of the serum creatinine. 3. Hypokalemia. It is due to improved urine output, and he is receiving potassium supplementation. His magnesium level is acceptable. 4. Diastolic congestive heart failure. He does not require further diuretic at this time. He has been in net negative fluid balance the past few days. His oxygen requirements are being weaned. His oral intake is improving, and we will reassess him for diuretics as needed.
[2018-09-02] MEDS: LEVEMIR (INSULIN DETEMIR) 1 UNITS/0.01ML SC SCH ×2 (11:46→20:35)
[2018-09-02 12:00] VITALS: BP 170/79
[2018-09-02] MEDS ORDERED: HumaLOG INSULIN (NovoLOG) PER UNIT SC SCH (12:00)
[2018-09-02] MEDS ORDERED: guaiFENesin DM *SUGAR FREE* 5ML**DIABETIC TUSSIN DM PO PRN (12:15)
--- NOTE | 2018-09-02 13:41 | IPNPDOC ---
Text Note Date of Service The patient was seen on 09/02/18. NOTE Pt was seen and examined at bedside. Pt is awake and alert. Denies any chest pain, SOB or lightheadedness. Oxygenation has significantly improved. Mental status has greatly improved. Kidney function has stabilized with good response to diuretics, No fever overnight, WBC trending down. Pt for transfer to PCU. General: Denies: Chills, Night Sweats, Fatigue, Malaise Eyes: Denies: Pain, Vision change ENT: Denies: Head Aches, Ear Pain, Dysphagia Skin: Denies: Rash, Lesions, Breakdown Pulmonary: Denies: Dyspnea, Cough Cardiovascular: Denies: Chest Pain, Palpitations, Orthopnea, Paroxysmal Noc. Dyspnea, Lt Headedness Gastrointestinal: Denies: Nausea, Vomiting, Abdominal Pain, Diarrhea, Constipation Genitourinary: Reports: Retention; Denies: Dysuria, Frequency Hematologic: Denies: Bruising, Bleeding Excessively Musculoskeletal: Denies: Neck Pain, Back Pain, Joint Pain, Muscle Pain, Spasms Neurological: Denies: Weakness, Numbness, Change in speech, Confusion Psych: Reports: Mood Normal Physical Examination General Exam: Positive: Alert, No Acute Distress Eye Exam: Positive: PERRLA, Conjunctiva & lids normal, EOMI; Negative: Sclera icteric ENT Exam: Positive: Atraumatic, Mucous membr. moist/pink (dry mucous membranes); Negative: Pharynx Normal, Tongue Midline, Pharyngeal Edema, Nares Patent, Tympanic Membranes Normal, Ext Auditory Canal Nml, Pinna Normal, Other ENT Neck Exam: Positive: Supple; Negative: JVD, thyromegaly Chest Exam: Positive: Diminished; Negative: Clear to auscultation, Normal air movement, Rales, Rhonchi, Wheezing, Other Heart Exam: Positive: Rate Normal, Regular Rhythm, Normal S1, Normal S2 Telemetry: Positive: No significant arrhythmia Abdomen Exam: Positive: Normal bowel sounds, Soft Male Exam: Positive: Normal Genital Exam Extremity Exam: Positive: Normal pulses; Negative: Clubbing, Cyanosis, Edema Skin Exam: Positive: Other skin issue (left foot unwrapped, diabetic wound on the plantar surface with no drainage, tissue seems to be healing well.) Neuro Exam: Positive: Normal Gait, Normal Speech, Cranial Nerves 3-12 NL, Reflexes 2+ Psych Exam: Positive: Oriented x 3 Vital Signs Date Time Temp Pulse Resp B/P (MAP) Pulse Ox O2 Delivery O2 Flow Rate FiO2 09/02/18 04:11 98.9 107 24 150/75 (100) 91 5.0 09/02/18 04:00 5.0 09/02/18 00:00 98.0 98 20 158/76 (103) 94 5.0 09/02/18 00:00 5.0 09/01/18 20:00 5.0 09/01/18 20:00 98.9 106 22 156/66 (96) 89 5.0 09/01/18 19:00 94 24 92 5.0 09/01/18 18:00 96 26 94 5.0 09/01/18 17:45 94 26 93 5.0 09/01/18 17:45 93 5.0 09/01/18 17:00 96 25 90 20.0 40 09/01/18 16:38 91 20.0 40 09/01/18 16:34 95 26 159/73 (101) 92 20.0 40 09/01/18 16:00 98.3 97 26 88 20.0 40 09/01/18 16:00 20.0 40 09/01/18 15:00 98 26 94 20.0 40 09/01/18 14:00 100 24 93 20.0 40 Intake & Output 09/02/18 06:00 Intake Total 1360 ml Output Total 1250 ml Balance 110 ml Laboratory Tests 09/01/18 17:21: Bedside Glucose (Misc Panel) 338H 09/01/18 19:38: Bedside Glucose (Misc Panel) 335H 09/01/18 23:56: Total Creatine Kinase 135, Creatine Kinase MB 6.1H, Creatine Kinase MB Relative Index 4.52H, Troponin I 0.23H 09/02/18 04:49: White Blood Count 11.2H, Red Blood Count 3.67L, Hemoglobin 10.4L, Hematocrit 33.0L, Mean Corpuscular Volume 89.9, Mean Corpuscular Hemoglobin 28.3, Mean Corpuscular Hemoglobin Concent 31.5L, Red Cell Distribution Width 14.1, Platelet Count 289, Nucleated Red Blood Cells % (auto) 0.0, Blood Urea Nitrogen 71H, Creatinine 4.59H, Sodium Level 141, Potassium Level 3.8, Chloride Level 107, Carbon Dioxide Level 22, Calcium Level 8.5L, Anion Gap 12, Glomerular Filtration Rate 13.2L, Fasting Glucose 414*H 09/02/18 08:06: Bedside Glucose (Misc Panel) 457H 09/02/18 08:09: Bedside Glucose (Misc Panel) 449H 09/02/18 12:27: Bedside Glucose (Misc Panel) 353H Microbiology 08/27/18 Blood Culture - Final, Complete NO GROWTH AFTER 5 DAYS 08/27/18 Blood Culture - Final, Complete NO GROWTH AFTER 5 DAYS 08/30/18 Stool Occult Blood (MG) - Final, Complete 08/29/18 Respiratory Virus Panel (PCR) (MG) - Final, Complete Influenza A H1-200808/28/18 MRSA Screen - Final, Complete 08/26/18 Gram Stain - Final, Complete 08/26/18 Sputum Culture - Final, Complete 08/23/18 Bacterial Culture - Final, Complete Corynebacterium Species 08/23/18 Anaerobic Culture - Final, Complete Current Medications Medications (Trade) Dose Ordered Sig/Wyatt Route PRN Reason Start Time Stop Time Status Last Admin Dose Admin Acetaminophen (Tylenol Tab) 650 mg Q4HP PRN PO PAIN OR FEVER 08/24/18 13:45 08/30/18 12:11 650 MG Albuterol/ Ipratropium (Duoneb (Ipr 0.5mg/Alb 2.5mg)) 3 ml RQ6H NEB 08/30/18 00:00 09/02/18 08:50 3 ML Amlodipine Besylate (Norvasc) 5 mg DAILY PO 08/19/18 09:00 Future hold 08/29/18 09:49 5 MG Benzonatate (Tessalon Perles) 100 mg BID PO 08/24/18 03:30 09/02/18 08:16 100 MG Clopidogrel Bisulfate (PLAVix) 75 mg DAILY PO 08/19/18 09:00 Future hold 09/02/18 08:15 75 MG Fluticasone Propionate (Flonase 0.05% Nasal [place]) 2 spray DAILY NARES 08/24/18 03:30 09/02/18 08:16 2 SPRAY Insulin Detemir (Levemir Insulin) 10 units BID SC 09/02/18 09:00 09/02/18 11:46 10 UNITS Insulin Human Lispro (HumaLOG INSULIN) SEE PROTOCOL TABLE AC SC 09/01/18 07:30 09/02/18 12:47 12 UNITS Metoprolol Tartrate (Lopressor) 25 mg BID PO 08/18/18 21:00 Future hold 08/29/18 09:49 25 MG Ondansetron HCl (ZOFRAN INJection) 4 mg Q4HP PRN IV NAUSEA OR VOMITING 08/24/18 09:00 08/28/18 09:35 4 MG Piperacillin Sod/ Tazobactam Sod 2.25 gm/Dextrose 50 ml @ 100 mls/hr Q6H IV 08/26/18 20:00 09/02/18 08:15 100 MLS/HR Potassium Chloride (Micro-K Extencaps) 20 meq TID PO 09/01/18 09:00 09/02/18 08:16 20 MEQ Simvastatin (Zocor) 20 mg QHS PO 08/18/18 21:00 09/01/18 20:47 20 MG Sodium Chloride (Saline Lock Flush) 2 ml SLF IV 08/31/18 22:00 09/02/18 06:04 2 ML 1-Acute Hypoxic Respiratory Failure: multifactorial in view of possible aspiration pneumonia,volume overload due to MOHINDER on CKD, now significantly has improved , would maintain O2 sats >90% Cont. on NC, Beta-agonist Neb PRN , Frequent suctioning and respiratory care. Pulmonary and critical care medicine monitor closely, recommendations appreciated. 2-Pneumonia: possible aspiration pneumonia, Pt was on broad spectrum Abx as per ID, Vanc and Doxy have been discontinued. Swallow evaluations, follow aspirations precautions closely. No more fevers. WBC trending down. 3-MOHINDER on CKD: etiology under investigation, Volume status improved , Urine output responded well to diuretics, Cr. stable, [place] Cath DC. Nephrology recommendations appreciated. 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 Transfer to PCU SW/Route Delivery Service Driver for Placement once medically optimized PT/OT VS, Fishbone, I+O VS,Fishbone, I+O VS, Fishbone, I+O Laboratory Tests 09/02/18 04:49 Red Blood Count 3.67 L, Mean Corpuscular Volume 89.9, Mean Corpuscular He moglobin 28.3, Mean Corpuscular Hemoglobin Concent 31.5 L, Red Cell Distribution Width 14.1, Calcium Level 8.5 L Vital Signs Date Time Temp Pulse Resp B/P (MAP) Pulse Ox O2 Delivery O2 Flow Rate FiO2 09/02/18 04:11 98.9 107 24 150/75 (100) 91 5.0 09/01/18 17:00 40 08/30/18 17:07 Nasal Cannula I&O- Last 24 Hours up to 6 AM 09/02/18 06:00 Intake Total 1360 ml Output Total 1250 ml Balance 110 ml CHRISTOPHER HERNANDEZ MD Sep 02, 2018 13:41
[2018-09-02 16:00] VITALS: BP 137/71
--- NOTE | 2018-09-02 17:16 | IPN ---
DATE: 09/02/2018 Mr. Dorman is seen this morning on his bedside. He just finished his chest physical therapy. Nursing staff reports that he has dry cough, but no hemoptysis. He is being treated for infected left foot ulcer and possible multifocal pulmonary infiltrates. He did have acute renal failure, but has not required dialysis so far. He seems to have good urine output now. Patient is feeling weak, but improving. Nursing staff reports that he did sit up in the chair this morning for a couple of hours. PHYSICAL EXAMINATION: Temperature 97.5 degrees Fahrenheit, heart rate 105 per minute and respiratory rate 24 per minute. Blood pressure 154/82 mmHg and oxygen saturation 95% on 5-6 liters oxygen. Intake and output records from yesterday showed total intake 1460 and output 1600 mL. His head is atraumatic. There is no oral thrush or ulcers. Neck is supple and jugular venous distention (JVD) is not abnormally elevated. His lungs have scattered rhonchi and diminished breath sounds. Heart sounds are tachycardiac and irregular. Abdomen soft and nontender and bowel sounds are normal. Extremities have no cyanosis or clubbing. Left foot is wrapped in dressing. Neurologically, he is awake and able to answer simple questions. Today's labs show sodium 141, potassium 3.8, CO2 22, BUN 71 and creatinine 4.59. Glucose 414 and calcium 8.5. WBC count is 11.2, hemoglobin 10.4 and hematocrit 33.0. Platelets 289. PROBLEMS: 1. Acute renal failure superimposed on chronic kidney disease. Slight improvement in kidney function is noted. He has good urine output and electrolytes are within normal range. He does not have any metabolic acidosis at this point. We will continue to monitor his kidney function on daily basis. 2. Sepsis with left foot diabetic ulcer. Patient remains afebrile at present and continues with antibiotics. He is receiving Zosyn 2.25 grams every 6 hours. If his kidney function does not improve within the next day or so, we will consider to cut down the dose of Zosyn and to every 8 hours. 3. Hypertension. Blood pressure seems reasonably well-controlled on current antihypertensive medications. No changes are being made today. 4. Congestive heart failure. His volume status seems reasonably well compensated, though he is still on 5 liters oxygen. I will watch him for the next 24 hours without any diuretic and see how he does. We will consider to give him and a diuretic as needed.
[2018-09-02 20:00] VITALS: BP 132/65
[2018-09-02] MEDS: SIMVASTATIN 20 MG TAB PO SCH (20:36)
[2018-09-03] VITALS (7 sets, daily range): BP systolic 146–161; BP diastolic 72–81
[2018-09-03] MEDS: IPRATROPIUM 0.5MG/ALBUTEROL 2.5MG INH SOL UD 3ML (DUONEB)(J7620) NEB SCH ×3 (01:13→13:36)
[2018-09-03] MEDS: PIPERACILLIN/TAZOBACTAM SOD 2.25 GM in D5W MINI-BAG PLUS 50 ML IV SCH ×4 (01:35→20:35)
[2018-09-03] MEDS: SLF 3 ML SYR IV SCH ×3 (05:18→23:25)
[2018-09-03 05:19] LABS: HEMATOCRIT 32.1 % (42.0-52.0); MEAN CORPUSCULAR HEMOGLOBIN 27.9 pg (27.0-33.0); MEAN CORPUSCULAR HGB CONC 31.2 g/dl (32.0-36.5); MEAN CORPUSCULAR VOLUME 89.7 fl (80.0-96.0); PLATELET COUNT, AUTOMATED 309 10^3/uL (150-450); RED BLOOD COUNT 3.58 10^6/uL (4.30-6.10); WHITE BLOOD COUNT 12.1 10^3/uL (4.0-10.0)
[2018-09-03 05:34] LABS: CALCIUM LEVEL 8.9 MG/DL (8.8-10.2); CREATININE FOR GFR 4.29 MG/DL (0.70-1.30); GLOMERULAR FILTRATION RATE 14.3 (>42); POTASSIUM SERUM 3.8 MEQ/L (3.5-5.1)
[2018-09-03] MEDS: HumaLOG INSULIN (NovoLOG) PER UNIT SC SCH ×4 (07:30→23:25)
[2018-09-03] MEDS: POTASSIUM CHLORIDE 10 MEQ SR TABLET PO SCH ×3 (09:32→20:35)
[2018-09-03] MEDS: FLUTICASONE PROP 0.05% NASAL SPRAY 16 GM (FLONASE) NARES SCH (09:32)
[2018-09-03] MEDS: BENZONATATE 100 MG CAP PO SCH ×2 (09:32→20:35)
[2018-09-03] MEDS: LEVEMIR (INSULIN DETEMIR) 1 UNITS/0.01ML SC SCH ×2 (09:32→20:36)
[2018-09-03] MEDS: CLOPIDOGREL 75 MG TAB PO SCH (09:32)
[2018-09-03] MEDS: ONDANSETRON 4MG/2ML VIAL (J2405) IV PRN (18:46)
[2018-09-03] MEDS: SIMVASTATIN 20 MG TAB PO SCH (20:35)
[2018-09-03] MEDS ORDERED: LEVEMIR (INSULIN DETEMIR) 1 UNITS/0.01ML SC ONE (21:45)
[2018-09-03] MEDS: METOCLOPRAMIDE INJ 10MG/2ML VIAL (J2765) IV PRN (23:26)
[2018-09-04] VITALS (7 sets, daily range): BP systolic 126–178; BP diastolic 58–90
[2018-09-04] MEDS: IPRATROPIUM 0.5MG/ALBUTEROL 2.5MG INH SOL UD 3ML (DUONEB)(J7620) NEB SCH ×5 (00:12→20:00)
[2018-09-04] MEDS: PIPERACILLIN/TAZOBACTAM SOD 2.25 GM in D5W MINI-BAG PLUS 50 ML IV SCH ×2 (02:47→08:56)
[2018-09-04] MEDS: METOCLOPRAMIDE INJ 10MG/2ML VIAL (J2765) IV PRN (02:47)
--- NOTE | 2018-09-04 04:46 | IPNPDOC ---
Text Note Date of Service The patient was seen on 09/03/18. NOTE Pt was seen and examined at bedside. He denies any acute complaints. PO intake adequate, BM and voiding NL. Continues to show clinical improvement, Labs reviewed. Cr. stable. No electrolyte abnormalities. Subjective: General: Denies: Chills, Night Sweats, Fatigue, Malaise Eyes: Denies: Pain, Vision change ENT: Denies: Head Aches, Ear Pain, Dysphagia Skin: Denies: Rash, Lesions, Breakdown Pulmonary: Denies: Dyspnea, Cough Cardiovascular: Denies: Chest Pain, Palpitations, Orthopnea, Paroxysmal Noc. Dyspnea, Lt Headedness Gastrointestinal: Denies: Nausea, Vomiting, Abdominal Pain, Diarrhea, Constipation Genitourinary: Reports: Retention; Denies: Dysuria, Frequency Hematologic: Denies: Bruising, Bleeding Excessively Musculoskeletal: Denies: Neck Pain, Back Pain, Joint Pain, Muscle Pain, Spasms Neurological: Denies: Weakness, Numbness, Change in speech, Confusion Psych: Reports: Mood Normal Physical Examination General Exam: Positive: Alert, No Acute Distress Eye Exam: Positive: PERRLA, Conjunctiva & lids normal, EOMI; Negative: Sclera icteric ENT Exam: Positive: Atraumatic, Mucous membr. moist/pink (dry mucous memb ranes); Negative: Pharynx Normal, Tongue Midline, Pharyngeal Edema, Nares Patent, Tympanic Membranes Normal, Ext Auditory Canal Nml, Pinna Normal, Other ENT Neck Exam: Positive: Supple; Negative: JVD, thyromegaly Chest Exam: Positive: Diminished; Negative: Clear to auscultation, Normal air movement, Rales, Rhonchi, Wheezing, Other Heart Exam: Positive: Rate Normal, Regular Rhythm, Normal S1, Normal S2 Telemetry: Positive: No significant arrhythmia Abdomen Exam: Positive: Normal bowel sounds, Soft Male Exam: Positive: Normal Genital Exam Extremity Exam: Positive: Normal pulses; Negative: Clubbing, Cyanosis, Edema Skin Exam: Positive: Other skin issue (left foot unwrapped, diabetic wound on the plantar surface with no drainage, tissue seems to be healing well.) Neuro Exam: Positive: Normal Gait, Normal Speech, Cranial Nerves 3-12 NL, Reflexes 2+ Psych Exam: Positive: Oriented x 3 Vital Signs Date Time Temp Pulse Resp B/P (MAP) Pulse Ox O2 Delivery O2 Flow Rate FiO2 6/10/19 00:00 97.8 96 18 139/65 (89) 93 6.0 09/03/18 20:44 6.0 09/03/18 20:00 99.2 102 19 157/75 (102) 92 6.0 09/03/18 17:18 98.3 97 20 161/75 (103) 96 6.0 09/03/18 17:13 6.0 09/03/18 16:00 6.0 09/03/18 16:00 98.9 101 22 155/74 (101) 90 8.0 09/03/18 12:00 6.0 09/03/18 12:00 99.0 99 20 158/81 (106) 94 5.0 09/03/18 08:00 98.7 103 24 146/75 (98) 93 6.0 09/03/18 07:30 6.0 Intake & Output 09/04/18 06:00 Intake Total 1280 ml Output Total 1750 ml Balance -470 ml Laboratory Tests 09/03/18 12:09: Bedside Glucose (Misc Panel) 289H 09/03/18 16:39: Bedside Glucose (Misc Panel) 285H 09/03/18 20:33: Bedside Glucose (Misc Panel) 264H Microbiology 08/29/18 Blood Culture - Final, Complete NO GROWTH AFTER 5 DAYS 08/29/18 Blood Culture - Final, Complete NO GROWTH AFTER 5 DAYS 08/27/18 Blood Culture - Final, Complete NO GROWTH AFTER 5 DAYS 08/27/18 Blood Culture - Final, Complete NO GROWTH AFTER 5 DAYS 08/30/18 Stool Occult Blood (MG) - Final, Complete 08/29/18 Respiratory Virus Panel (PCR) (MG) - Final, Complete Influenza A H1-2009 08/28/18 MRSA Screen - Final, Complete 08/26/18 Gram Stain - Final, Complete 08/26/18 Sputum Culture - Final, Complete Current Medications Medications (Trade) Dose Ordered Sig/Wyatt Route PRN Reason Start Time Stop Time Status Last Admin Dose Admin Acetaminophen (Tylenol Tab) 650 mg Q4HP PRN PO PAIN OR FEVER 08/24/18 13:45 08/30/18 12:11 650 MG Albuterol/ Ipratropium (Duoneb (Ipr 0.5mg/Alb 2.5mg)) 3 ml RQ6H NEB 08/30/18 00:00 09/03/18 13:36 3 ML Amlodipine Besylate (Norvasc) 5 mg DAILY PO 08/19/18 09:00 Future hold 08/29/18 09:49 5 MG Benzonatate (Tessalon Perles) 100 mg BID PO 08/24/18 03:30 09/03/18 20:35 100 MG Clopidogrel Bisulfate (PLAVix) 75 mg DAILY PO 08/19/18 09:00 Future hold 09/03/18 09:32 75 MG Fluticasone Propionate (Flonase 0.05% Nasal [place]) 2 spray DAILY NARES 08/24/18 03:30 09/03/18 09:32 2 SPRAY Guaifenesin/ Dextromethorphan (Robitussin Dm Sugar Free) 10 ml Q6HP PRN PO COUGH 09/02/18 12:15 09/02/18 13:49 10 ML Insulin Human Lispro (HumaLOG INSULIN) SEE PROTOCOL TABLE QHS SC 09/03/18 21:00 09/03/18 23:25 2 UNITS Metoclopramide HCl (REGLAN INJection) 5 mg Q8HP PRN IV NAUSEA 09/03/18 21:45 09/04/18 02:47 5 MG Metoprolol Tartrate (Lopressor) 25 mg BID PO 08/18/18 21:00 Future hold 08/29/18 09:49 25 MG Ondansetron HCl (ZOFRAN INJection) 4 mg Q4HP PRN IV NAUSEA OR VOMITING 08/24/18 09:00 09/03/18 18:46 4 MG Piperacillin Sod/ Tazobactam Sod 2.25 gm/Dextrose 50 ml @ 100 mls/hr Q6H IV 08/26/18 20:00 09/04/18 02:47 100 MLS/HR Potassium Chloride (Micro-K Extencaps) 20 meq TID PO 09/01/18 09:00 09/03/18 20:35 20 MEQ Simvastatin (Zocor) 20 mg QHS PO 08/18/18 21:00 09/03/18 20:35 20 MG Sodium Chloride (Saline Lock Flush) 2 ml SLF IV 08/31/18 22:00 09/03/18 23:25 2 ML A/P 1-Acute Hypoxic Respiratory Failure: Resolved multifactorial in view of possible aspiration pneumonia,volume overload due to MOHINDER on CKD, now significantly has improved , would maintain O2 sats >90% Cont. on NC, Beta-agonist Neb PRN , Frequent suctioning and respiratory care. Pulmonary and critical care medicine monitor closely, recommendations appreciated. 2-Pneumonia: possible aspiration pneumonia, Pt was on broad spectrum Abx as per ID, Vanc and Doxy have been discontinued. Swallow evaluations, follow aspirations precautions closely. No more fevers. WBC trending down. Stable. 3-MOHINDER on CKD: etiology under investigation, Volume status improved , Urine output responded well to diuretics, Cr. stable, [place] Cath DC. Nephrology recommendations appreciated. 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 Transfer to PCU SW/Life Sciences Manager for Placement PT/OT plan at this point is continuous physical therapy on a daily basis and assessment for placement options. VS,Fishbone, I+O VS, Fishbone, I+O Laboratory Tests 09/03/18 04:41 Red Blood Count 3.58 L, Mean Corpuscular Volume 89.7, Mean Corpuscular Hemoglobin 27.9, Mean Corpuscular Hemoglobin Concent 31.2 L, Red Cell D istribution Width 14.0, Calcium Level 8.9 Vital Signs Date Time Temp Pulse Resp B/P (MAP) Pulse Ox O2 Delivery O2 Flow Rate FiO2 09/04/18 00:00 97.8 96 18 139/65 (89) 93 6.0 09/01/18 17:00 40 08/30/18 17:07 Nasal Cannula I&O- Last 24 Hours up to 6 AM 09/04/18 06:00 Intake Total 1280 ml Output Total 1750 ml Balance -470 ml CHRISTOPHER HERNANDEZ MD Sep 04, 2018 04:46
[2018-09-04] MEDS: SLF 3 ML SYR IV SCH ×3 (05:08→21:15)
[2018-09-04] MEDS: BENZONATATE 100 MG CAP PO SCH ×2 (08:56→21:14)
[2018-09-04] MEDS: POTASSIUM CHLORIDE 10 MEQ SR TABLET PO SCH ×3 (08:56→21:14)
[2018-09-04] MEDS: CLOPIDOGREL 75 MG TAB PO SCH (08:56)
[2018-09-04] MEDS: HumaLOG INSULIN (NovoLOG) PER UNIT SC SCH ×4 (08:57→21:00)
[2018-09-04] MEDS: FLUTICASONE PROP 0.05% NASAL SPRAY 16 GM (FLONASE) NARES SCH (08:58)
[2018-09-04] MEDS ORDERED: LEVEMIR (INSULIN DETEMIR) 1 UNITS/0.01ML SC SCH (09:00)
[2018-09-04 09:08] LABS: HEMATOCRIT 34.6 % (42.0-52.0); HEMOGLOBIN 10.8 g/dl (13.5-17.5); MEAN CORPUSCULAR HEMOGLOBIN 28.9 pg (27.0-33.0); MEAN CORPUSCULAR HGB CONC 31.2 g/dl (32.0-36.5); MEAN CORPUSCULAR VOLUME 92.5 fl (80.0-96.0); PLATELET COUNT, AUTOMATED 367 10^3/uL (150-450); RED BLOOD COUNT 3.74 10^6/uL (4.30-6.10); WHITE BLOOD COUNT 14.6 10^3/uL (4.0-10.0)
[2018-09-04 09:34] LABS: ALBUMIN 1.8 GM/DL (3.2-5.2); CREATININE FOR GFR 4.12 MG/DL (0.70-1.30); PHOSPHORUS LEVEL 3.9 MG/DL (2.5-4.9); POTASSIUM SERUM 4.4 MEQ/L (3.5-5.1)
--- NOTE | 2018-09-04 09:45 | IPN ---
DATE OF VISIT: 09/03/2018 Mr. Dorman is seen this afternoon on his bedside in the intensive care unit. He is sitting in the chair at the time of my visit and his daughter is present in the room. The patient is feeling much better today, though he still remains on 5 liters of oxygen. His cough has improved. He denies any nausea or vomiting and has been tolerating his diet well. He has no fever or chills. On physical exam, temperature 98.7 degrees Fahrenheit, heart rate 103 per minute, respiratory rate 20 per minute. Blood pressure 146/75 mmHg. Oxygen saturation 93% on 5 liters of oxygen. Intake and output records from yesterday showed total intake of 1410 and output 1580. His head is atraumatic. Neck is supple. Jugular venous distention (JVD) does not seem to be elevated. His heart sound are tachycardic. Lungs with diminished breath sounds and basilar rales. Abdomen soft and nontender. Bowel sounds are present. Extremities without any cyanosis or clubbing. His left leg is now in the air cast. There is minimal edema on the right leg. Neurologically, he is awake, alert and oriented times three. PROBLEMS: 1. Acute renal failure. Kidney function is slowly improving. The patient does not have any uremic symptoms and will continue to monitor his kidney function on a daily basis. His volume status is compensated and electrolytes are within normal range. He does not have any metabolic acidosis. 2. Sepsis with left foot infected wound. The patient is doing much better and he is hemodynamically stable. He remains on antibiotics. He is currently on Zosyn 2.25 grams every 6 hours. 3. Hypoxemia and pneumonia. His volume status seems to be reasonably well compensated. Hypoxemia is most likely related to multifocal infiltrates and the patient will remain on antibiotics and supplemental oxygen. MTDD
--- NOTE | 2018-09-04 12:34 | IPN ---
DATE: 09/04/2018 Mr. Dorman is seen this morning on his bedside. He has been transferred out of intensive care unit. He is sitting at the edge of bed at the time of my visit and reports feeling better. He denies any nausea or vomiting and has good oral intake. He has no fever or chills. He remains on 5-6 liters oxygen due to hypoxemia. PHYSICAL EXAMINATION Temperature 97.1 degrees Fahrenheit, heart rate 98 per minute and respiratory rate 18 per minute. Blood pressure 160/74 mmHg and oxygen saturation 95% on 6 liters oxygen. Head is atraumatic. Neck is supple and without jugular venous distention (JVD) or thyroid enlargement. Heart sounds are tachycardiac and lungs with bilateral rhonchi. Abdomen is soft and nontender and bowel sounds are normal. Extremities have no cyanosis or clubbing. Left foot is in an air cast. Neurologically, he is awake, alert and oriented times three. LABORATORIES: Today's labs show sodium 144, potassium 4.4, CO2 24, chloride 112, CO2 is 24, BUN 63 and creatinine 4.12. Glucose 198 and calcium 9.0. WBC count is 14.6, hemoglobin 10.8 and hematocrit 34.6, platelets 367. PROBLEMS: 1. Acute renal failure superimposed on chronic kidney disease. Kidney function is slowly improving and the patient has no uremic symptoms. His electrolytes are stable and we will continue to monitor his kidney function on a daily basis. 2. Hypoxemia, this is most likely not related to volume status, but due to multifocal pulmonary infiltrates. The patient remains on antibiotics and supplemental oxygen. His urine output is a negative fluid balance for last several days. 3. Anemia. At this point, anemia remains stable and does not need any intervention. 4. Left foot diabetic ulcer. The patient remains on Zosyn and is currently afebrile.
--- NOTE | 2018-09-04 12:47 | IPNPDOC ---
Text Note Date of Service The patient was seen on 09/04/18. NOTE Pt was seen and examined at bedside. No overnight events noted. Denies any acute complaints. Pt for transfer to regular floor. Continues to show clinical improvement. ABx switched to PO today. Needs daily wound care, PT/OT. Kidney function stable. Subjective: General: Denies: Chills, Night Sweats, Fatigue, Malaise Eyes: Denies: Pain, Vision change ENT: Denies: Head Aches, Ear Pain, Dysphagia Skin: Denies: Rash, Lesions, Breakdown Pulmonary: Denies: Dyspnea, Cough Cardiovascular: Denies: Chest Pain, Palpitations, Orthopnea, Paroxysmal Noc. Dyspnea, Lt Headedness Gastrointestinal: Denies: Nausea, Vomiting, Abdominal Pain, Diarrhea, Constipation Genitourinary: Reports: Retention; Denies: Dysuria, Frequency Hematologic: Denies: Bruising, Bleeding Excessively Musculoskeletal: Denies: Neck Pain, Back Pain, Joint Pain, Muscle Pain, Spasms Neurological: Denies: Weakness, Numbness, Change in speech, Confusion Psych: Reports: Mood Normal Physical Examination General Exam: Positive: Alert, No Acute Distress Eye Exam: Positive: PERRLA, Conjunctiva & lids normal, EOMI; Negative: Sclera icteric ENT Exam: Positive: Atraumatic, Mucous membr. moist/pink (dry mucous membranes); Negative: Pharynx Normal, Tongue Midline, Pharyngeal Edema, Nares Patent, Tympanic Membranes Normal, Ext Auditory Canal Nml, Pinna Normal, Other ENT Neck Exam: Positive: Supple; Negative: JVD, thyromegaly Chest Exam: Positive: Diminished; Negative: Clear to auscultation, Normal air movement, Rales, Rhonchi, Wheezing, Other Heart Exam: Positive: Rate Normal, Regular Rhythm, Normal S1, Normal S2 Telemetry: Positive: No significant arrhythmia Abdomen Exam: Positive: Normal bowel sounds, Soft Male Exam: Positive: Normal Genital Exam Extremity Exam: Positive: Normal pulses; Negative: Clubbing, Cyanosis, Edema Skin Exam: Positive: Other skin issue (left foot unwrapped, diabetic wound on the plantar surface with no drainage, tissue seems to be healing well.) Neuro Exam: Positive: Normal Gait, Normal Speech, Cranial Nerves 3-12 NL, R eflexes 2+ Psych Exam: Positive: Oriented x 3 Vital Signs Date Time Temp Pulse Resp B/P (MAP) Pulse Ox O2 Delivery O2 Flow Rate FiO2 09/04/18 12:00 98.8 94 20 144/73 (96) 94 4.0 09/04/18 12:00 4.0 09/04/18 09:00 6.0 09/04/18 08:00 97.1 98 18 160/74 (102) 95 6.0 09/04/18 05:10 6.0 09/04/18 05:05 98.4 93 22 126/60 (82) 92 6.0 09/04/18 04:00 97.8 91 20 94 6.0 09/04/18 00:00 97.8 96 18 139/65 (89) 93 6.0 09/04/18 00:00 6.0 09/03/18 20:44 6.0 09/03/18 20:00 99.2 102 19 157/75 (102) 92 6.0 09/03/18 17:18 98.3 97 20 161/75 (103) 96 6.0 09/03/18 17:13 6.0 09/03/18 16:00 6.0 09/03/18 16:00 98.9 101 22 155/74 (101) 90 8.0 Intake & Output 09/04/18 06:00 Intake Total 1280 ml Output Total 1750 ml Balance -470 ml Laboratory Tests 09/03/18 16:39: Bedside Glucose (Misc Panel) 285H 09/03/18 20:33: Bedside Glucose (Misc Panel) 264H 09/04/18 07:08: Bedside Glucose (Misc Panel) 190H 09/04/18 08:43: White Blood Count 14.6H, Red Blood Count 3.74L, Hemoglobin 10.8L, Hematocrit 34.6L, Mean Corpuscular Volume 92.5, Mean Corpuscular Hemoglobin 28.9, Mean Corpuscular Hemoglobin Concent 31.2L, Red Cell Distribution Width 14.3, Platelet Count 367, Nucleated Red Blood Cells % (auto) 0.0, Blood Urea Nitrogen 63H, Creatinine 4.12H, Sodium Level 144, Potassium Level 4.4, Chloride Level 112H, Carbon Dioxide Level 24, Anion Gap 8, Glomerular Filtration Rate 15.0L, Fasting Glucose 198H, Calcium Level 9.0, Phosphorus Level 3.9, Albumin 1.8L 09/04/18 11:32: Bedside Glucose (Misc Panel) 281H Microbiology 08/29/18 Blood Culture - Final, Complete NO GROWTH AFTER 5 DAYS 08/29/18 Blood Culture - Final, Complete NO GROWTH AFTER 5 DAYS 08/27/18 Blood Culture - Final, Complete NO GROWTH AFTER 5 DAYS 08/27/18 Blood Culture - Final, Complete NO GROWTH AFTER 5 DAYS 08/30/18 Stool Occult Blood (MG) - Final, Complete 08/29/18 Respiratory Virus Panel (PCR) (MG) - Final, Complete Influenza A H1-200808/28/18 MRSA Screen - Final, Complete 08/26/18 Gram Stain - Final, Complete 08/26/18 Sputum Culture - Final, Complete Current Medications Medications (Trade) Dose Ordered Sig/[place] Route PRN Reason Start Time Stop Time Status Last Admin Dose Admin Acetaminophen (Tylenol Tab) 650 mg Q4HP PRN PO PAIN OR FEVER 08/24/18 13:45 08/30/18 12:11 650 MG Albuterol/ Ipratropium (Duoneb (Ipr 0.5mg/Alb 2.5mg)) 3 ml RQ6H NEB 08/30/18 00:00 09/04/18 07:23 3 ML Amlodipine Besylate (Norvasc) 5 mg DAILY PO 08/19/18 09:00 Future hold 08/29/18 09:49 5 MG Benzonatate (Tessalon Perles) 100 mg BID PO 08/24/18 03:30 09/04/18 08:56 100 MG Clopidogrel Bisulfate (PLAVix) 75 mg DAILY PO 08/19/18 09:00 Future hold 09/04/18 08:56 75 MG Fluticasone Propionate (Flonase 0.05% Nasal [place]) 2 spray DAILY NARES 08/24/18 03:30 09/04/18 08:58 2 SPRAY Guaifenesin/ Dextromethorphan (Robitussin Dm Sugar Free) 10 ml Q6HP PRN PO COUGH 09/02/18 12:15 09/02/18 13:49 10 ML Insulin Human Lispro (HumaLOG INSULIN) SEE PROTOCOL TABLE QHS SC 09/03/18 21:00 09/03/18 23:25 2 UNITS Metoclopramide HCl (REGLAN INJection) 5 mg Q8HP PRN IV NAUSEA 09/03/18 21:45 09/04/18 02:47 5 MG Metoprolol Tartrate (Lopressor) 25 mg BID PO 08/18/18 21:00 Future hold 08/29/18 09:49 25 MG Ondansetron HCl (ZOFRAN INJection) 4 mg Q4HP PRN IV NAUSEA OR VOMITING 08/24/18 09:00 09/03/18 18:46 4 MG Potassium Chloride (Micro-K Extencaps) 20 meq TID PO 09/01/18 09:00 09/04/18 08:56 20 MEQ Simvastatin (Zocor) 20 mg QHS PO 08/18/18 21:00 09/03/18 20:35 20 MG Sodium Chloride (Saline Lock Flush) 2 ml SLF IV 08/31/18 22:00 09/04/18 12:30 2 ML A/P 1-Acute Hypoxic Respiratory Failure: Resolved multifactorial in view of possible aspiration pneumonia,volume overload due to MOHINDER on CKD, now significantly has improved , would maintain O2 sats >90% Cont. on NC, Beta-agonist Neb PRN , Frequent suctioning and respiratory care. Pulmonary and critical care medicine monitor closely, recommendations appreciated. 2-Pneumonia: possible aspiration pneumonia, Pt was on broad spectrum Abx as per ID, Vanc and Doxy have been discontinued. Swallow evaluations, follow aspirations precautions closely. No more fevers. WBC trending down. Stable. 3-MOHINDER on CKD: Volume status improved , Urine output responded well to diuretics, Cr. stable, [place] Cath DC. Nephrology recommendations appreciated. 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 Cont FS AC and HS. Transfer to Regular floor SW/Bilingual Administrative Assistant for Placement PT/OT plan at this point is continuous physical therapy on a daily basis and assessment for placement options. VS,Fishbone, I+O VS, Fishbone, I+O Laboratory Tests 09/04/18 08:43 Red Blood Count 3.74 L, Mean Corpuscular Volume 92.5, Mean Corpuscular Hemoglobin 28.9, Mean Corpuscular Hemoglobin Concent 31.2 L, Red Cell Distribution Width 14.3, Anion Gap 8 Vital Signs Date Time Temp Pulse Resp B/P (MAP) Pulse Ox O2 Delivery O2 Flow Rate FiO2 09/04/18 12:00 98.8 94 20 144/73 (96) 94 4.0 09/01/18 17:00 40 08/30/18 17:07 Nasal Cannula I&O- Last 24 Hours up to 6 AM 09/04/18 06:00 Intake Total 1280 ml Output Total 1750 ml Balance -470 ml CHRISTOPHER HERNANDEZ MD Sep 04, 2018 12:47
[2018-09-04] MEDS: HEPARIN SOD (PORCINE) 5000 UNITS/ML VIAL SQ SCH ×2 (13:28→21:15)
[2018-09-04] MEDS: CEPHALEXIN 500 MG CAP PO SCH ×3 (13:28→21:14)
[2018-09-04] MEDS: METOPROLOL TART 25 MG TABLET PO SCH (21:14)
[2018-09-04] MEDS: SIMVASTATIN 20 MG TAB PO SCH (21:14)
[2018-09-04] MEDS: LEVEMIR (INSULIN DETEMIR) 1 UNITS/0.01ML SC SCH (21:15)
--- NOTE | 2018-09-04 21:38 | IPN ---
DATE: 09/04/2018 INFECTIOUS DISEASE PROGRESS NOTE The patient is examined at bedside. He is feeling much better. He is fast asleep. The is in the room and information is obtained through and nurse. They state that he is coughing less, bringing up less sputum. He has been titrated down from 6 liters to 4 liters nasal cannula. He will be downgraded from progressive care unit (PCU) to the general medical floor. He has not had any recent fevers or chills. No shortness of breath. Renal function is mildly improved. No nausea, vomiting, diarrhea. Per the , his foot was assessed by Dr. Reeves and deemed to be healing very well without any further surgical intervention planned currently. PHYSICAL EXAMINATION: VITAL SIGNS: Temperature 97.1, pulse 98, respirations 18, blood pressure 160/74 with a mean arterial pressure of 102, pulse oximetry 95% on 4 liters nasal cannula. GENERAL: Resting comfortably in bed. No acute distress. Fast asleep. HEENT: Normocephalic, atraumatic. CARDIAC: Regular rate and rhythm. Normal S1, S2. LUNGS: Minimal crackles, more so on the left base, otherwise clear. Unable to take deep respirations as he is fast asleep. ABDOMEN: Soft, nontender, nondistended. EXTREMITIES: Trace edema in the right lower extremity, left lower extremity is in a boot from the foot up to the knee. SKIN: No other visible lesions or rashes. Unable to assess the wound on the left foot given it is in a boot. LABORATORIES: WBC 14.6, hemoglobin and hematocrit 10.8 and 34.6, platelets 367. Sodium and potassium 144 and 4.4, BUN and creatinine 63 and 4.12, GFR 15. No new imaging or microbiology. IMPRESSION/PLAN: 1. Acute hypoxia secondary to influenza A. The patient is being titrated down on supplemental oxygen and is improving symptomatically. He is being transitioned to oral antibiotics, renally dosed Keflex should be 500 mg twice a day. Given he has osteomyelitis, recommend continuing this for an additional 4 weeks. 2. Acute kidney injury. The patient appears to be diuresing well. His weight is down to 103 kg today and put out 1.8 liters of urine yesterday. Renal function is mildly improved. Creatinine is 4.12 today. Continue to monitor strict input and output. 3. Diastolic congestive heart failure (CHF). Continue diuresing. Volume status is gradually improving. 4. 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 Continue Keflex for outpatient management and transitioned to oral today s/p IV Zosyn. MTDD
[2018-09-05] MEDS: IPRATROPIUM 0.5MG/ALBUTEROL 2.5MG INH SOL UD 3ML (DUONEB)(J7620) NEB SCH ×4 (02:00→19:31)
[2018-09-05] MEDS: ONDANSETRON 4MG/2ML VIAL (J2405) IV PRN (02:24)
[2018-09-05] MEDS: SLF 3 ML SYR IV SCH ×3 (05:47→20:58)
[2018-09-05] MEDS: HEPARIN SOD (PORCINE) 5000 UNITS/ML VIAL SQ SCH ×3 (05:47→20:56)
[2018-09-05 06:00] VITALS: BP 145/89
[2018-09-05 06:20] LABS: BASO # 0.1 10^3/uL (0.0-0.2); BASO % 0.4 % (0.0-1.0); EOS # 0.7 10^3/uL (0.0-0.50); EOS % 5.2 % (0.0-3.0); HEMATOCRIT 33.5 % (42.0-52.0); HEMOGLOBIN 10.3 g/dl (13.5-17.5); LYMPH # 1.5 10^3/uL (1.5-4.5); LYMPH % 11.7 % (24.0-44.0); MEAN CORPUSCULAR HEMOGLOBIN 28.3 pg (27.0-33.0); MEAN CORPUSCULAR HGB CONC 30.7 g/dl (32.0-36.5); MONO # 0.9 10^3/uL (0.0-0.8); MONO % 7.1 % (0.0-5.0); NEUTROPHILS # 9.6 10^3/uL (1.8-7.7); NEUTROPHILS % 74.1 % (36.0-66.0); PLATELET COUNT, AUTOMATED 372 10^3/uL (150-450); RED BLOOD COUNT 3.64 10^6/uL (4.30-6.10)
[2018-09-05 06:47] LABS: ALBUMIN 1.6 GM/DL (3.2-5.2); BILIRUBIN,TOTAL 0.3 MG/DL (0.2-1.0); CALCIUM LEVEL 8.7 MG/DL (8.8-10.2); CREATININE FOR GFR 3.83 MG/DL (0.70-1.30); GLOMERULAR FILTRATION RATE 16.3 (>42); POTASSIUM SERUM 4.4 MEQ/L (3.5-5.1); TOTAL PROTEIN 7.5 GM/DL (6.4-8.2)
[2018-09-05] MEDS: CEPHALEXIN 500 MG CAP PO SCH ×2 (08:42→20:58)
[2018-09-05] MEDS: POTASSIUM CHLORIDE 10 MEQ SR TABLET PO SCH ×3 (08:42→20:58)
[2018-09-05] MEDS: amLODIPine 5 MG TAB PO SCH (08:43)
[2018-09-05] MEDS: BENZONATATE 100 MG CAP PO SCH ×2 (08:43→20:58)
[2018-09-05] MEDS: CLOPIDOGREL 75 MG TAB PO SCH (08:43)
[2018-09-05] MEDS: METOPROLOL TART 25 MG TABLET PO SCH ×2 (08:43→20:58)
[2018-09-05] MEDS: FLUTICASONE PROP 0.05% NASAL SPRAY 16 GM (FLONASE) NARES SCH (08:44)
[2018-09-05] MEDS: LEVEMIR (INSULIN DETEMIR) 1 UNITS/0.01ML SC SCH ×2 (08:44→20:56)
[2018-09-05] MEDS: HumaLOG INSULIN (NovoLOG) PER UNIT SC SCH ×4 (08:44→20:58)
--- NOTE | 2018-09-05 11:59 | IPN ---
DATE: 09/05/2018 Mr. Dorman is seen this morning on his bedside. He reports that he was nauseated this morning and did not eat well. He denies any vomiting or abdominal pain. He remains short of breath and on oxygen supplementation. PHYSICAL EXAMINATION: Temperature 97.2 degrees Fahrenheit, heart rate 96 per minute and respiratory rate 18 per minute. Blood pressure 145/89 mmHg and oxygen saturation 96% on 4 liters oxygen. Head is atraumatic. Neck is supple and without jugular venous distention (JVD) or thyroid enlargement. Heart sounds are tachycardiac and lungs with bilateral scattered rhonchi. Abdomen was soft and nontender and bowel sounds are normal. Extremities have no cyanosis or clubbing. The left foot is in a cast. Neurologically, he is awake, alert and oriented times three. Today's labs show WBC count 13.0, hemoglobin 10.3 and hematocrit 33.5. Sodium 146, potassium 4.4, CO2 22, BUN 58 and creatinine 3.83. PROBLEMS: 1. Acute renal failure superimposed on chronic kidney disease. Kidney function is improving slowly but surely. He has decent urine output and we will continue to monitor closely. 2. Hypernatremia. The patient has developed mild hypernatremia over the last few days. He is not receiving any diuretic and we will continue to watch. It is likely to improve by itself. Patient is being encouraged to increase his fluid intake. 3. Hypoxemia related to pulmonary infiltrates. Volume status is very well compensated or slightly depleted. I do not feel that a diuretic is indicated. 4. Hypokalemia. His potassium level has corrected and he is receiving potassium chloride supplement three times a day. 5. Anemia. So far his anemia has been stable and does not need any urgent intervention.
--- NOTE | 2018-09-05 13:44 | IPNPDOC ---
Subjective Date Seen The patient was seen on 09/05/18. Subjective Chief Complaint/HPI Patient seen and examined at the bedside. Reports that he was nauseous this morning, but denied any abdominal pain or vomiting. Otherwise, no acute overnight events noted. Objective Physical Examination General Exam: Positive: Alert, Cooperative, No Acute Distress ENT Exam: Positive: Atraumatic, Mucous membr. moist/pink Chest Exam: Positive: Diminished; Negative: Other Heart Exam: Positive: Rate Normal, Regular Rhythm, Normal S1, Normal S2 Abdomen Exam: Positive: Soft; Negative: Tenderness Extremity Exam: Negative: Tenderness Skin Exam: Positive: Other skin issue (left foot wrapped in surgical dressing.) Neuro Exam: Positive: Normal Gait, Normal Speech Psych Exam: Positive: Oriented x 3 Assessment /Plan Plan/VTE VTE Prophylaxis Ordered?: Yes Plan Sepsis with Hypoxemia 2/2 Multifocal Pneumonia, Influenza CT Chest notable for Multifocal Pneumonia on 08/27, likely 2/2 aspiration due to nausea/vomiting following surgery, and atelectasis post-operatively s/p Empiric Coverage with Vanco/Zosyn/Doxy transitioned to PO Keflex Patient's respiratory status has continued to improve as his supplemental oxygen is down to 4L via NC ID and Pulmonary input appreciated Speech therapy eval ordered to assess for aspiration risk We will cont to monitor Left Foot Diabetic Wound MRI of L. foot showed evidence of Osteo and possible small abscess on 08/19 s/p Surgical Debridement by Dr. Reeves of Podiatry on 08/23/18--no evidence of Osteo/Abscess formation noted as per Report, cultures noted s/p Empiric Abx coverage, transitioned to PO Keflex as per ID Podiatry on board CKD Stage IIB-IV with superimposed ARF Serum Cr improving overall 4.59-->3.83 (Baseline ~2.0) Patient making adequate UOP Nephrology on board, input appreciated HTN Cont Norvasc IDDM Cont Insulin as ordered PAD s/p bypass graft of L. leg c/w home meds. HLD Cont Statin DVT Prophylaxis Heparin SC VS, I&O, 24H, Fishbone Vital Signs/I&O Vital Signs Date Time Temp Pulse Resp B/P (MAP) Pulse Ox O2 Delivery O2 Flow Rate FiO2 09/05/18 08:43 97 145/89 09/05/18 07:55 4.0 6/11/19 06:00 97.2 18 96 09/01/18 17:00 40 08/30/18 17:07 Nasal Cannula I&O- Last 24 Hours up to 6 AM 09/05/18 06:00 Intake Total 310 ml Output Total 350 ml Balance -40 ml Laboratory Data 24H LABS Laboratory Tests 2 09/04/18 16:36: Bedside Glucose (Misc Panel) 188H 09/04/18 21:08: Bedside Glucose (Misc Panel) 189H 09/05/18 05:38: Immature Granulocyte % (Auto) 1.5, White Blood Count 13.0H, Red Blood Count 3.64L, Hemoglobin 10.3L, Hematocrit 33.5L, Mean Corpuscular Volume 92.0, Mean Corpuscular Hemoglobin 28.3, Mean Corpuscular Hemoglobin Concent 30.7L, Red Cell Distribution Width 14.2, Platelet Count 372, Neutrophils (%) (Auto) 74.1H, Lymphocytes (%) (Auto) 11.7L, Monocytes (%) (Auto) 7.1H, Eosinophils (%) (Auto) 5.2H, Basophils (%) (Auto) 0.4, Neutrophils # (Auto) 9.6H, Lymphocytes # (Auto) 1.5, Monocytes # (Auto) 0.9H, Eosinophils # (Auto) 0.7H, Basophils # (Auto) 0.1, Nucleated Red Blood Cells % (auto) 0.0, Anion Gap 8, Glomerular Filtration Rate 16.3L, Blood Urea Nitrogen 58H, Creatinine 3.83H, Sodium Level 146H, Potassium Level 4.4, Chloride Level 116H, Carbon Dioxide Level 22, Calcium Level 8.7L, Aspartate Amino Transf (AST/SGOT) 27, Alanine Aminotransferase (ALT/SGPT) 19, Alkaline Phosphatase 52, Total Bilirubin 0.3, Total Protein 7.5, Albumin 1.6L, Albumin/Globulin Ratio 0.27L 09/05/18 11:31: Bedside Glucose (Misc Panel) 156H CBC/BMP Laboratory Tests 09/05/18 05:38 Red Blood Count 3.64 L, Mean Corpuscular Volume 92.0, Mean Corpuscular Hemoglobin 28.3, Mean Corpuscular Hemoglobin Concent 30.7 L, Red Cell Distribution Width 14.2, Neutrophils (%) (Auto) 74.1 H, Lymphocytes (%) (Auto) 11.7 L, Monocytes (%) (Auto) 7.1 H, Eosinophils (%) (Auto) 5.2 H, Basophils (%) (Auto) 0.4, Neutrophils # (Auto) 9.6 H, Lymphocytes # (Auto) 1.5, Monocytes # (Auto) 0.9 H, Eosinophils # (Auto) 0.7 H, Basophils # (Auto) 0.1, Calcium Level 8.7 L, Aspartate Amino Transf (AST/SGOT) 27, Alanine Aminotransferase (ALT/SGPT) 19, Alkaline Phosphatase 52, Total Bilirubin 0.3, Total Protein 7.5, Albumin 1.6 L Microbiology Microbiology 08/29/18 Blood Culture - Final, Complete NO GROWTH AFTER 5 DAYS 08/29/18 Blood Culture - Final, Complete NO GROWTH AFTER 5 DAYS 08/27/18 Blood Culture - Final, Complete NO GROWTH AFTER 5 DAYS 08/27/18 Blood Culture - Final, Complete NO GROWTH AFTER 5 DAYS 08/30/18 Stool Occult Blood (MG) - Final, Complete 08/29/18 Respiratory Virus Panel (PCR) (MG) - Final, Complete Influenza A H1-200808/28/18 MRSA Screen - Final, Complete 08/26/18 Gram Stain - Final, Complete 08/26/18 Sputum Culture - Final, Complete IRENE PENA MD Sep 05, 2018 13:44
[2018-09-05 16:06] LABS: C REACTIVE PROTEIN QUANTITATIV 11.8 MG/DL (0.00-0.30)
--- NOTE | 2018-09-05 17:36 | IPN ---
DATE: 09/05/2018 INFECTIOUS DISEASE PROGRESS NOTE SUBJECTIVE: Patient examined at bedside. He is feeling much improved, has minimal cough and phlegm as of today. His appetite is gradually returning. He is able to tolerate oral intake. However, still remains on four liters nasal cannula and at baseline is on zero. Denies any recent fevers or chills, or current shortness of breath. No nausea, vomiting, diarrhea. No new skin rashes. No issues with his foot. PHYSICAL EXAMINATION: VITAL SIGNS: Temperature is 97.2, pulse 97, respirations 18, blood pressure 145/89, mean arterial pressure (MAP) of 107, pulse oximetry 96% on four liters nasal cannula. GENERAL: Resting comfortably in bed, in no acute distress. Alert and oriented times three, fully conversant. HEENT: Normocephalic, atraumatic. Moist mucous membranes. NECK: Neck is supple. CARDIAC: Regular rate and rhythm with normal S1 and S2. LUNGS: Bilateral crackles half way up the chest. Clear in the upper lung mckeon. No accessory muscle use. Equal chest rise bilaterally. ABDOMEN: Soft, nontender, nondistended. Positive bowel sounds. EXTREMITIES: 1+ pitting edema in the right lower extremity. The left lower extremity is in a boot from the foot up to the knee. SKIN: No other visible lesions or rashes. LABORATORY: WBC 13, hemoglobin and hematocrit 10.3 and 33.5, platelets 372. Sodium and potassium 146 and 4.4. BUN and creatinine 58 and 3.83. CRP 11.8. No new imaging or microbiology. IMPRESSION AND PLAN: 1. Acute hypoxia secondary to influenza A. Patient is improving without Tamiflu. He remains, however, on four liters nasal cannula and is on no supplemental oxygen at baseline. Given that he has crackles worsening today as well as 1+ edema and still requires supplemental oxygen, there is concern for decompensated congestive heart failure (CHF). Will obtain chest x-ray and followup a BNP. 2. 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 Continue Keflex 500 mg twice a day for a total of 4 weeks. Patient is status post IV Zosyn. 3. Acute kidney injury (MOHINDER). Mr. Dorman's renal function has improved. Creatinine is 3.83 today. Will further assess volume status with imaging. However, overall appears to be hypervolemic. 4. Diastolic CHF, likely decompensated. Continue diuresing. MTDD
--- NOTE | 2018-09-05 17:44 | NUR ---
Clinical bedside swallow assessment attempted but unable to be completed as patient refused to eat/drink for the assessment. ST will attempt at later date. Addendum: 09/05/18 at 1745 by GUMARO ALLEN Amended: Links added.
--- NOTE | 2018-09-05 19:09 | IPN ---
DATE: 09/05/2018 Time: 6:46 p.m. CHIEF COMPLAINT: Patient seen at bedside for evaluation of his left foot. Patient is sitting at bedside. Patient states he is feeling good, having no difficulty breathing today. States he does have a loss of appetite. EVALUATION OF HIS FOOT: The bandage was removed. There is some maceration around the ulcer. The ulcer measures 41 mm x 42 mm x 1 mm in depth with no hyperkeratotic rim today. There is no swelling noted of his foot, and there is no active discharge. No foul odor is noted. The maceration is mainly located at the heel region, possibly due to serous exudate collecting at the heel region. Laboratory studies were reviewed. White count 13.0, C-reactive protein 11.8. Bone culture as noted previously revealing Corynebacterium contaminant. ASSESSMENT: Resolving cellulitis of his left leg. No remaining abscess. Negative for osteomyelitis. PLAN: A dry sterile dressing was applied to the patient's left foot, since he has some maceration, will change his dressing to dry sterile dressing every 8 hours. His questions were answered. When ambulating, he is to ambulate with his [employer] walker.
[2018-09-05 20:00] VITALS: BP 158/91
[2018-09-05] MEDS: SIMVASTATIN 20 MG TAB PO SCH (20:58)
[2018-09-06] MEDS: IPRATROPIUM 0.5MG/ALBUTEROL 2.5MG INH SOL UD 3ML (DUONEB)(J7620) NEB SCH ×4 (02:00→19:28)
[2018-09-06 05:23] VITALS: BP 161/86
[2018-09-06] MEDS: HEPARIN SOD (PORCINE) 5000 UNITS/ML VIAL SQ SCH ×3 (06:25→20:21)
[2018-09-06] MEDS: SLF 3 ML SYR IV SCH ×3 (06:25→20:24)
--- NOTE | 2018-09-06 07:11 | REP ---
CHEST, TWO VIEWS: Two views of the chest are performed. COMPARISON: 08/29/2018 Increased patchy alveolar infiltrates are seen diffusely bilaterally. The heart does not appear to be significantly enlarged. No definite pleural effusion is seen. IMPRESSION: Increase in diffuse bilateral patchy alveolar infiltrates. Electronically Signed by Talha Armenta MD 09/06/2018 04:32 P
[2018-09-06 08:27] LABS: HEMATOCRIT 34.3 % (42.0-52.0); HEMOGLOBIN 10.5 g/dl (13.5-17.5); MEAN CORPUSCULAR HEMOGLOBIN 27.8 pg (27.0-33.0); MEAN CORPUSCULAR HGB CONC 30.6 g/dl (32.0-36.5); MEAN CORPUSCULAR VOLUME 90.7 fl (80.0-96.0); PLATELET COUNT, AUTOMATED 379 10^3/uL (150-450); RED BLOOD COUNT 3.78 10^6/uL (4.30-6.10); WHITE BLOOD COUNT 11.4 10^3/uL (4.0-10.0)
[2018-09-06] MEDS: LEVEMIR (INSULIN DETEMIR) 1 UNITS/0.01ML SC SCH ×2 (08:41→20:22)
[2018-09-06] MEDS: BENZONATATE 100 MG CAP PO SCH ×2 (08:42→20:20)
[2018-09-06] MEDS: CLOPIDOGREL 75 MG TAB PO SCH (08:42)
[2018-09-06] MEDS: HumaLOG INSULIN (NovoLOG) PER UNIT SC SCH ×4 (08:42→20:22)
[2018-09-06] MEDS: CEPHALEXIN 500 MG CAP PO SCH ×2 (08:42→20:20)
[2018-09-06] MEDS: FLUTICASONE PROP 0.05% NASAL SPRAY 16 GM (FLONASE) NARES SCH (08:43)
[2018-09-06] MEDS: POTASSIUM CHLORIDE 10 MEQ SR TABLET PO SCH (08:43)
[2018-09-06] MEDS: amLODIPine 5 MG TAB PO SCH (08:43)
[2018-09-06] MEDS: METOPROLOL TART 25 MG TABLET PO SCH ×2 (08:43→20:21)
[2018-09-06 08:52] LABS: CALCIUM LEVEL 8.8 MG/DL (8.8-10.2); CREATININE FOR GFR 3.96 MG/DL (0.70-1.30); GLOMERULAR FILTRATION RATE 15.7 (>42)
--- NOTE | 2018-09-06 12:08 | IPN ---
DATE: 09/06/2018 Mr. Dorman is seen this morning on his bedside. He is feeling better but felt nauseated while he was eating breakfast. He denies any vomiting, abdominal pain or diarrhea. He remains on 4 liters oxygen. The patient denies any fever or chills. PHYSICAL EXAMINATION: Temperature 98.5 degrees Fahrenheit, heart rate 72 per minute and respiratory rate 18 per minute. Blood pressure 150/85 mmHg and oxygen saturation 94% on 4 liters oxygen. His head is atraumatic. Neck is supple and without jugular venous distention (JVD) or thyroid enlargement. Heart sounds are regular and lungs have bilateral rhonchi. Abdomen is soft and nontender. Bowel sounds are normal. Extremities have no cyanosis or clubbing. Neurologically, he is at his baseline mentation. Today's labs show WBC count 11.4, hemoglobin 10.5 and hematocrit 34.3. Platelets 379. Sodium 146, potassium 5.0, CO2 24, BUN 58 and creatinine 3.96. PROBLEMS: 1. Acute renal failure superimposed on chronic kidney disease. No improvement in kidney function noticed over the last 24 hours. His BNP level was elevated at 14,599 yesterday; however, clinically he does not have any evidence of hypervolemia. At this point, I would recommended not to give him any diuretics. His renal function is being monitored and there is no emergent need for dialysis. 2. Hypoxemia. Mostly this is related to bilateral pulmonary infiltrates. Clinically, his volume status is reasonably well-compensated and he has mild hypernatremia so I would recommend to avoid any diuretic use. 3. Hypokalemia. His potassium level has corrected and in fact now it is borderline high. His potassium supplement is being stopped. 4. Hypernatremia. He does have mild hypernatremia, which is unchanged over the last 24 hours. The patient has good oral intake of fluids. No other intervention is indicated at this point.
--- NOTE | 2018-09-06 12:09 | REP ---
CT ABDOMEN/PELVIS WITHOUT CONTRAST: CT abdomen/pelvis performed without oral or IV contrast. Sagittal and coronal reconstruction images are performed. Visualized lung bases demonstrate dense patchy infiltrates bilaterally. There is a small right effusion. Liver is grossly unremarkable. There is dense sludge in the gallbladder versus small stones in the dependent portion. Liver is enlarged with a length of 19.7 cm. The spleen is also enlarged with a length of 14.6 cm. There is a tiny calcified granuloma in the spleen. There is left adrenal gland thickening. The right adrenal is unremarkable. The pancreas is grossly unremarkable. The kidneys are grossly unremarkable. There is no evidence of hydronephrosis bilaterally nor hydroureter. There is moderate atherosclerotic calcification of the abdominal aorta without aneurysm. There is no free air or free fluid. There is no bowel wall thickening. There is sigmoid diverticulosis without evidence of acute diverticulitis. No significantly enlarged lymph nodes are seen in the abdomen or pelvis. There are two mildly enlarged left inguinal lymph nodes, the largest 1.4 cm in short axis. The prostate is enlarged. The urinary bladder is mildly distended and grossly unremarkable. There are degeneration changes of the spine. There is a small umbilical hernia containing fat. IMPRESSION: Dense infiltrates in the visualized lung bases. Small right pleural effusion. Mild hepatosplenomegaly. No evidence of bowel inflammation. No free air or free fluid. Sigmoid diverticulosis without acute diverticulitis. Mild left inguinal adenopathy. Enlarged prostate. Dependent sludge or stones in the gallbladder without evidence of gallbladder wall edema. Electronically Signed by Talha Armenta MD 09/06/2018 04:56 P
[2018-09-06] MEDS ORDERED: OXYMETAZOLINE NASAL SPRAY (AFRIN) PRN (13:00)
[2018-09-06 14:00] VITALS: BP 144/76
--- NOTE | 2018-09-06 14:00 | IPNPDOC ---
Subjective Date Seen The patient was seen on 09/06/18. Subjective Chief Complaint/HPI Patient seen and examined at the bedside. Reports that he had an episode of nausea this morning. Otherwise, states that his appetite is overall decreased. Denies any worsening shortness of breath or cough. His supplemental oxygen has been down titrated to 2 L via nasal cannula. Objective Physical Examination General Exam: Positive: Alert, Cooperative, No Acute Distress ENT Exam: Positive: Atraumatic, Mucous membr. moist/pink Chest Exam: Positive: Diminished; Negative: Other Heart Exam: Positive: Rate Normal, Regular Rhythm, Normal S1, Normal S2 Abdomen Exam: Positive: Soft; Negative: Tenderness Extremity Exam: Negative: Tenderness Skin Exam: Positive: Other skin issue (left foot wrapped in surgical dressing.) Neuro Exam: Positive: Normal Gait, Normal Speech Psych Exam: Positive: Oriented x 3 Assessment /Plan Plan/VTE VTE Prophylaxis Ordered?: Yes Plan Sepsis with Hypoxemia 2/2 Multifocal Pneumonia, Influenza CT Chest notable for Multifocal Pneumonia on 08/27, likely 2/2 aspiration due to nausea/vomiting following surgery, and atelectasis post-operatively s/p Empiric Coverage with Vanco/Zosyn/Doxy transitioned to PO Keflex Patient's respiratory status has continued to improve as his supplemental oxygen is down from 4L via NC to 2L this afternoon ID and Pulmonary input appreciated Speech therapy eval on board to assess for aspiration risk We will cont to monitor Left Foot Diabetic Wound MRI of L. foot showed evidence of Osteo and possible small abscess on 08/19 s/p Surgical Debridement by Dr. Reeves of Podiatry on 08/23/18--no evidence of Osteo/Abscess formation noted as per Report, cultures noted s/p Empiric Abx coverage, transitioned to PO Keflex as per ID Podiatry on board CKD Stage IIB-IV with superimposed ARF Serum Cr has not returned back to baseline yet Patient making adequate UOP, lytes stable Nephrology on board, input appreciated Hypernatremia 2/2 Decreased PO Intake PO Hydration encouraged HTN Cont Norvasc IDDM Cont Insulin as ordered PAD s/p bypass graft of L. leg c/w home meds. HLD Cont Statin DVT Prophylaxis Heparin SC Dispo--pending continued clinical improvement. PT on board for functional opti mization. VS, I&O, 24H, Fishbone Vital Signs/I&O Vital Signs Date Time Temp Pulse Resp B/P (MAP) Pulse Ox O2 Delivery O2 Flow Rate FiO2 09/06/18 08:43 72 150/85 09/06/18 07:55 3.0 09/06/18 05:23 98.5 18 91 09/01/18 17:00 40 I&O- Last 24 Hours up to 6 AM 09/06/18 05:59 Intake Total 940 ml Output Total 1150 ml Balance -210 ml Laboratory Data 24H LABS Laboratory Tests 2 09/05/18 16:45: Bedside Glucose (Misc Panel) 188H 09/05/18 20:06: Bedside Glucose (Misc Panel) 162H 09/06/18 05:52: Bedside Glucose (Misc Panel) 150H 09/06/18 08:14: Nucleated Red Blood Cells % (auto) 0.0, Anion Gap 6L, Glomerular Filtration Rate 15.7L, Blood Urea Nitrogen 58H, Creatinine 3.96H, Sodium Level 146H, Potassium Level 5.0, Chloride Level 115H, Carbon Dioxide Level 25, Calcium Level 8.8 09/06/18 11:34: Bedside Glucose (Misc Panel) 246H CBC/BMP Laboratory Tests 09/06/18 08:14 Red Blood Count 3.78 L, Mean Corpuscular Volume 90.7, Mean Corpuscular Hemoglobin 27.8, Mean Corpuscular Hemoglobin Concent 30.6 L, Red Cell Distribution Width 14.4, Calcium Level 8.8 Microbiology Microbiology 08/29/18 Blood Culture - Final, Complete NO GROWTH AFTER 5 DAYS 08/29/18 Blood Culture - Final, Complete NO GROWTH AFTER 5 DAYS 08/27/18 Blood Culture - Final, Complete NO GROWTH AFTER 5 DAYS 08/27/18 Blood Culture - Final, Complete NO GROWTH AFTER 5 DAYS 08/30/18 Stool Occult Blood (MG) - Final, Complete 08/29/18 Respiratory Virus Panel (PCR) (MG) - Final, Complete Influenza A H1-200808/28/18 MRSA Screen - Final, Complete IRENE PENA MD Sep 06, 2018 14:00
--- NOTE | 2018-09-06 15:48 | NUR ---
Pt seen for FEES (Flexible Endoscopy Evaluation of Swallow) today. Pt presents with mild-moderate pharyngeal phase dysphagia as characterized by the presence of residue on the arytenoid shelf likely due to the post crico area being compressed. Pt also has shallow pyriforms which fill quickly with risk of spilling to penetration. Noted residue at the pharyngeal posterior wall post-swallow. Recommend: Level 2 solids and thin liquids. Frequent liquid wash throughout meal. O2 humidity, Nasal saline spray and oral Care 3x a day Addendum: 09/07/18 at 1553 by GAYATRI ARENAS [facility] SP Amended: Links added.
[2018-09-06] MEDS: ONDANSETRON 4MG/2ML VIAL (J2405) IV PRN (18:39)
[2018-09-06] MEDS: SIMVASTATIN 20 MG TAB PO SCH (20:20)
[2018-09-06 22:00] VITALS: BP 133/59
[2018-09-07] MEDS: IPRATROPIUM 0.5MG/ALBUTEROL 2.5MG INH SOL UD 3ML (DUONEB)(J7620) NEB SCH ×4 (01:27→19:20)
[2018-09-07] MEDS: HEPARIN SOD (PORCINE) 5000 UNITS/ML VIAL SQ SCH ×3 (05:30→20:08)
[2018-09-07] MEDS: SLF 3 ML SYR IV SCH ×3 (05:31→20:08)
[2018-09-07 06:00] VITALS: BP 156/86
[2018-09-07 06:08] LABS: HEMATOCRIT 34.7 % (42.0-52.0); HEMOGLOBIN 10.6 g/dl (13.5-17.5); MEAN CORPUSCULAR HEMOGLOBIN 27.5 pg (27.0-33.0); MEAN CORPUSCULAR HGB CONC 30.5 g/dl (32.0-36.5); MEAN CORPUSCULAR VOLUME 90.1 fl (80.0-96.0); PLATELET COUNT, AUTOMATED 354 10^3/uL (150-450); RED BLOOD COUNT 3.85 10^6/uL (4.30-6.10); WHITE BLOOD COUNT 9.7 10^3/uL (4.0-10.0)
[2018-09-07 06:35] LABS: CALCIUM LEVEL 8.3 MG/DL (8.8-10.2); CREATININE FOR GFR 3.74 MG/DL (0.70-1.30); GLOMERULAR FILTRATION RATE 16.7 (>42); POTASSIUM SERUM 4.9 MEQ/L (3.5-5.1)
[2018-09-07 07:45] LABS: C REACTIVE PROTEIN QUANTITATIV 10.9 MG/DL (0.00-0.30)
[2018-09-07] MEDS: METOPROLOL TART 25 MG TABLET PO SCH ×2 (08:44→20:09)
[2018-09-07] MEDS: amLODIPine 5 MG TAB PO SCH (08:44)
[2018-09-07] MEDS: CLOPIDOGREL 75 MG TAB PO SCH (08:44)
[2018-09-07] MEDS: CEPHALEXIN 500 MG CAP PO SCH ×2 (08:44→20:09)
[2018-09-07] MEDS: HumaLOG INSULIN (NovoLOG) PER UNIT SC SCH ×4 (08:45→20:57)
[2018-09-07] MEDS: BENZONATATE 100 MG CAP PO SCH ×2 (08:45→20:09)
[2018-09-07] MEDS: FLUTICASONE PROP 0.05% NASAL SPRAY 16 GM (FLONASE) NARES SCH (08:45)
[2018-09-07] MEDS: LEVEMIR (INSULIN DETEMIR) 1 UNITS/0.01ML SC SCH ×2 (08:46→20:09)
--- NOTE | 2018-09-07 11:13 | IPN ---
DATE: 09/07/2018 Mr. Dorman is seen this morning on his bedside. He is sitting in the chair eating breakfast. He reports some nausea after eating. He denies any fever or chills. He is now on 2 liters oxygen. He is still very weak and short of breath on exertion. PHYSICAL EXAMINATION Temperature 97.2 degrees Fahrenheit, heart rate 88 per minute and respiratory rate 18 per minute. Blood pressure 156/86 mmHg and oxygen saturation 94% on 2 liters oxygen. His head is atraumatic. Neck is supple and without JVD or thyroid enlargement. Heart sounds are regular and lungs with bilateral scattered rhonchi. Abdomen is soft and nontender. Bowel sounds are normal. Extremities have no cyanosis or clubbing. Neurologically, he is awake, alert and oriented times three. Today's labs show WBC count 9.7, hemoglobin 10.6 and hematocrit 34.7. Platelets 354. Sodium 145, potassium 4.9, CO2 23, BUN 55 and creatinine 3.74. Glucose 166 and a C-reactive protein is 10.9. PROBLEMS: 1. Acute renal failure superimposed on chronic kidney disease. Kidney function is slowly improving. He has no uremic symptoms and his volume status is well compensated clinically. His BNP level is elevated, but clinically he does not have any evidence of congestive heart failure. He has a decent urine output without need for a diuretic. 2. Anemia. His anemia is stable at this point and does not need any urgent intervention. 3. Hypertension. Blood pressure has been well-controlled and no changes in medications are being made today. 4. Hypernatremia. Sodium level has improved and it is high normal. No intervention is indicated at this point.
[2018-09-07 14:00] VITALS: BP 127/66
--- NOTE | 2018-09-07 17:19 | IPNPDOC ---
Subjective Date Seen The patient was seen on 09/07/18. Subjective Chief Complaint/HPI Patient seen and examined at the bedside. States that he is feeling much better today, and was able to tolerate half of an omelette, applesauce, and muffins today. States that his appetite is improved. Denies any worsening of cough, or shortness of breath. Continues to maintain adequate urine output. No other acute overnight events noted. Objective Physical Examination General Exam: Positive: Alert, Cooperative, No Acute Distress ENT Exam: Positive: Atraumatic, Mucous membr. moist/pink Chest Exam: Positive: Diminished; Negative: Other Heart Exam: Positive: Rate Normal, Regular Rhythm, Normal S1, Normal S2 Abdomen Exam: Positive: Soft; Negative: Tenderness Extremity Exam: Negative: Tenderness Skin Exam: Positive: Other skin issue (left foot wrapped in surgical dressing.) Neuro Exam: Positive: Normal Gait, Normal Speech Psych Exam: Positive: Oriented x 3 Assessment /Plan Plan/VTE VTE Prophylaxis Ordered?: Yes Plan Sepsis with Hypoxemia 2/2 Multifocal Pneumonia, Influenza CT Chest notable for Multifocal Pneumonia on 08/27, likely 2/2 aspiration due to nausea/vomiting following surgery, and atelectasis post-operatively s/p Empiric Coverage with Vanco/Zosyn/Doxy transitioned to PO Keflex Patient's respiratory status has continued to improve as his supplemental oxygen is down to 2L ID and Pulmonary input appreciated Speech therapy eval on board to assess for aspiration risk We will cont to monitor Left Foot Diabetic Wound MRI of L. foot showed evidence of Osteo and possible small abscess on 08/19 s/p Surgical Debridement by Dr. Reeves of Podiatry on 08/23/18--no evidence of Osteo/Abscess formation noted as per Report, cultures noted s/p Empiric Abx coverage, transitioned to PO Keflex as per ID Podiatry on board CKD Stage IIB-IV with superimposed ARF Serum Cr has not returned back to baseline yet, however it is improving overall Patient making adequate UOP, lytes stable Nephrology on board, input appreciated Hypernatremia 2/2 Decreased PO Intake PO Hydration encouraged HTN Cont Norvasc IDDM Cont Insulin as ordered PAD s/p bypass graft of L. leg c/w home meds. HLD Cont Statin DVT Prophylaxis Heparin SC Dispo--pending continued clinical improvement. PT on board for functional optimization. VS, I&O, 24H, [place] Vital Signs/I&O Vital Signs Date Time Temp Pulse Resp B/P (MAP) Pulse Ox O2 Delivery O2 Flow Rate FiO2 09/07/18 14:00 97.7 71 18 127/66 (86) 97 2.0 09/01/18 17:00 40 I&O- Last 24 Hours up to 6 AM 09/07/18 06:00 Intake Total 740 ml Output Total 1925 ml Balance -1185 ml Laboratory Data 24H LABS Laboratory Tests 2 09/06/18 19:56: Bedside Glucose (Misc Panel) 112H 09/07/18 05:47: Nucleated Red Blood Cells % (auto) 0.0, Anion Gap 11, Glomerular Filtration Rate 16.7L, Blood Urea Nitrogen 55H, Creatinine 3.74H, Sodium Level 145, Potassium Level 4.9, Chloride Level 111H, Carbon Dioxide Level 23, Calcium Level 8.3L, C- Reactive Protein, Quantitative 10.90H 09/07/18 11:22: Bedside Glucose (Misc Panel) 235H 09/07/18 16:33: Bedside Glucose (Misc Panel) 142H CBC/BMP Laboratory Tests 09/07/18 05:47 Red Blood Count 3.85 L, Mean Corpuscular Volume 90.1, Mean Corpuscular Hemoglobin 27.5, Mean Corpuscular Hemoglobin Concent 30.5 L, Red Cell Distribution Width 14.4, Calcium Level 8.3 L Microbiology Microbiology 08/29/18 Blood Culture - Final, Complete NO GROWTH AFTER 5 DAYS 08/29/18 Blood Culture - Final, Complete NO GROWTH AFTER 5 DAYS 08/30/18 Stool Occult Blood (MG) - Final, Complete 08/29/18 Respiratory Virus Panel (PCR) (MG) - Final, Complete Influenza A H1-200808/28/18 MRSA Screen - Final, Complete IRENE PENA MD Sep 07, 2018 17:19
[2018-09-07] MEDS: SIMVASTATIN 20 MG TAB PO SCH (20:09)
[2018-09-07 22:00] VITALS: BP 131/70
[2018-09-08] MEDS: IPRATROPIUM 0.5MG/ALBUTEROL 2.5MG INH SOL UD 3ML (DUONEB)(J7620) NEB SCH ×4 (01:52→20:53)
[2018-09-08 05:52] LABS: HEMATOCRIT 34.6 % (42.0-52.0); HEMOGLOBIN 10.9 g/dl (13.5-17.5); MEAN CORPUSCULAR HEMOGLOBIN 28.6 pg (27.0-33.0); MEAN CORPUSCULAR HGB CONC 31.5 g/dl (32.0-36.5); MEAN CORPUSCULAR VOLUME 90.8 fl (80.0-96.0); PLATELET COUNT, AUTOMATED 335 10^3/uL (150-450); RED BLOOD COUNT 3.81 10^6/uL (4.30-6.10); WHITE BLOOD COUNT 9.8 10^3/uL (4.0-10.0)
[2018-09-08 06:00] VITALS: BP 155/76
[2018-09-08] MEDS: SLF 3 ML SYR IV SCH (06:00)
[2018-09-08 06:14] LABS: CALCIUM LEVEL 8.3 MG/DL (8.8-10.2); CREATININE FOR GFR 3.54 MG/DL (0.70-1.30); GLOMERULAR FILTRATION RATE 17.8 (>42); POTASSIUM SERUM 4.5 MEQ/L (3.5-5.1)
[2018-09-08] MEDS: HEPARIN SOD (PORCINE) 5000 UNITS/ML VIAL SQ SCH ×3 (06:47→20:49)
[2018-09-08] MEDS: HumaLOG INSULIN (NovoLOG) PER UNIT SC SCH ×4 (07:30→20:36)
[2018-09-08] MEDS: BENZONATATE 100 MG CAP PO SCH ×2 (09:10→20:49)
[2018-09-08] MEDS: METOPROLOL TART 25 MG TABLET PO SCH ×2 (09:10→20:49)
[2018-09-08] MEDS: amLODIPine 5 MG TAB PO SCH (09:10)
[2018-09-08] MEDS: ONDANSETRON 4 MG TAB (S0181) PO PRN (09:10)
[2018-09-08] MEDS: CEPHALEXIN 500 MG CAP PO SCH ×2 (09:10→20:49)
[2018-09-08] MEDS: CLOPIDOGREL 75 MG TAB PO SCH (09:10)
[2018-09-08] MEDS: FLUTICASONE PROP 0.05% NASAL SPRAY 16 GM (FLONASE) NARES SCH (09:11)
[2018-09-08] MEDS: LEVEMIR (INSULIN DETEMIR) 1 UNITS/0.01ML SC SCH ×2 (09:11→20:50)
--- NOTE | 2018-09-08 13:19 | IPN ---
DATE: 09/08/2018 Mrs. Dorman is seen this morning on his bedside. He is sitting at the edge of bed getting bathed. He reports recurrent nausea and did not eat anything this morning. He remains hypoxic, requiring oxygen. However, his oxygen requirement has come down to 2.0 liters. He has bilateral pulmonary infiltrates and most recent CAT scan of abdomen and pelvis done on September 06 did show significant consolidation of lower lungs. He had small pleural effusions. His main problem at this time is persistent nausea, but no fever or chills. He denies any vomiting or diarrhea. On physical examination, temperature 97.7 degrees Fahrenheit, heart rate 88 per minute and respiratory rate 18 per minute. Blood pressure 155/76 mmHg and oxygen saturation 95% on 2 liters oxygen. Intake and output records from yesterday are even. Head is atraumatic. Neck is supple and without jugular venous distention (JVD) or thyroid enlargement. His heart sounds are regular and lungs with bilateral scattered crackles. Abdomen: Soft and bowel sounds are present. Extremities: Have no cyanosis or clubbing. Neurologically he is awake, alert and oriented times three. Today's labs show WBC count 9.8, hemoglobin 10.9 and hematocrit 34.6. Platelets 335. Sodium 147, potassium 4.5, CO2 25, BUN 53 and creatinine 3.54. Glucose 96 and calcium 8.3. PROBLEMS: 1. Acute kidney injury superimposed on chronic kidney disease. The patient has slow improvement in kidney function, but his kidney function is improving every day. His electrolytes are stable and we will continue to monitor his kidney function on a daily basis. 2. Hypoxemia. His oxygen requirement has improved significantly over the last week. He has dense consolidation and bilateral infiltrates which is most likely the cause of his hypoxemia. I do not feel that clinically there is any evidence of congestive heart failure. We will not use any diuretic in view of hypernatremia. 3. Nausea. The patient has persistent nausea which could be related to oral antibiotic. His CAT scan of abdomen and pelvis was done a couple of days ago which did not show any acute intra-abdominal problem. I would suggest to consider stopping his oral Keflex and see if his nausea improves. 4. Hypernatremia. The patient has mild hypernatremia which is likely to improve without any intervention. He is not receiving any diuretic. 5. Diabetic foot ulcer. His left foot ulcer is healing. He had his dressing change done this morning. He remains afebrile and he is currently on Keflex. I will defer to Dr. Bryant about his antibiotic.
[2018-09-08 14:00] VITALS: BP 127/58
--- NOTE | 2018-09-08 16:09 | IPNPDOC ---
Subjective Date Seen The patient was seen on 09/08/18. Subjective Chief Complaint/HPI Patient seen and examined at the bedside this afternoon. He states that he felt nauseous this morning, but has been able to tolerate his lunch without any issues. States that he is continuing to feel better every day, and has been working with physical therapy with the hope of going home soon. No other acute overnight events noted. Objective Physical Examination General Exam: Positive: Alert, Cooperative, No Acute Distress ENT Exam: Positive: Atraumatic, Mucous membr. moist/pink Chest Exam: Positive: Diminished; Negative: Other Heart Exam: Positive: Rate Normal, Regular Rhythm, Normal S1, Normal S2 Abdomen Exam: Positive: Soft; Negative: Tenderness Extremity Exam: Negative: Tenderness Skin Exam: Positive: Other skin issue (left foot wrapped in surgical dressing.) Neuro Exam: Positive: Normal Gait, Normal Speech Psych Exam: Positive: Oriented x 3 Assessment /Plan Plan/VTE VTE Prophylaxis Ordered?: Yes Plan Sepsis with Hypoxemia 2/2 Multifocal Pneumonia, Influenza CT Chest notable for Multifocal Pneumonia on 08/27, likely 2/2 aspiration due to nausea/vomiting following surgery, and atelectasis post-operatively s/p Empiric antibiotic trial with Vanco/Zosyn/Doxy Patient's respiratory status has continued to improve as his supplemental oxygen is down to 2L--we will continue to down titrate this as tolerated ID and Pulmonary input appreciated Speech therapy eval on board to assess for aspiration risk We will cont to monitor Left Foot Diabetic Wound MRI of L. foot showed evidence of Osteo and possible small abscess on 08/19 s/p Surgical Debridement by Dr. Reeves of Podiatry on 08/23/18--no evidence of Osteo/Abscess formation noted as per Report, cultures noted s/p Empiric Abx coverage, transitioned to PO Keflex as per ID Podiatry on board CKD Stage IIB-IV with superimposed ARF Serum Cr has not returned back to baseline yet, however it is improving overall Patient making adequate UOP, lytes stable Nephrology on board, input appreciated Hypernatremia 2/2 Decreased PO Intake PO Hydration encouraged HTN Cont Norvasc IDDM Cont Insulin as ordered PAD s/p bypass graft of L. leg c/w home meds. HLD Cont Statin DVT Prophylaxis Heparin SC Dispo--pending continued clinical improvement. PT on board for functional optimization. VS, I&O, 24H, Fishbone Vital Signs/I&O Vital Signs Date Time Temp Pulse Resp B/P (MAP) Pulse Ox O2 Delivery O2 Flow Rate FiO2 09/08/18 14:00 98.2 72 18 127/58 (81) 96 09/08/18 09:30 2.0 I&O- Last 24 Hours up to 6 AM 09/08/18 06:00 Intake Total 1370 ml Output Total 1440 ml Balance -70 ml Laboratory Data 24H LABS Laboratory Tests 2 09/07/18 16:33: Bedside Glucose (Misc Panel) 142H 09/07/18 20:34: Bedside Glucose (Misc Panel) 191H 09/08/18 05:33: Nucleated Red Blood Cells % (auto) 0.0, Anion Gap 7L, Glomerular Filtration Rate 17.8L, Blood Urea Nitrogen 53H, Creatinine 3.54H, Sodium Level 147H, Potassium Level 4.5, Chloride Level 115H, Carbon Dioxide Level 25, Calcium Level 8.3L 09/08/18 11:33: Bedside Glucose (Misc Panel) 208H CBC/BMP Laboratory Tests 09/08/18 05:33 Red Blood Count 3.81 L, Mean Corpuscular Volume 90.8, Mean Corpuscular He moglobin 28.6, Mean Corpuscular Hemoglobin Concent 31.5 L, Red Cell Distribution Width 14.2, Calcium Level 8.3 L Microbiology Microbiology 08/29/18 Blood Culture - Final, Complete NO GROWTH AFTER 5 DAYS 08/29/18 Blood Culture - Final, Complete NO GROWTH AFTER 5 DAYS 08/30/18 Stool Occult Blood (MG) - Final, Complete 08/29/18 Respiratory Virus Panel (PCR) (MG) - Final, Complete Influenza A H1-2008 IRENE PENA MD Sep 08, 2018 16:09
--- NOTE | 2018-09-08 16:52 | IPN ---
DATE: 09/08/2018 INFECTIOUS DISEASE PROGRESS NOTE SUBJECTIVE: The patient is examined at bedside with in the room. He is feeling better. He had some nausea this morning, but that has improved over time. He is tolerating a diet well. No fevers or chills or episodes of vomiting or diarrhea. He states that left foot is healing well, as per community administrator. PHYSICAL EXAMINATION: VITAL SIGNS: Temperature is 97.7, pulse 89, respirations 19, blood pressure 159/76, MAP of 102, pulse oximetry 95% on 2 liters nasal cannula. GENERAL: Resting comfortably in bed in no acute distress. Alert and oriented times three. Fully conversant. HEENT: Normocephalic, atraumatic. Moist mucous membranes. NECK: Supple without adenopathy. CARDIAC: Regular rate and rhythm without any murmurs. Normal S1, S2. LUNGS: Bilateral crackles throughout lower 1/3 chest. Clear upper lung mckeon. ABDOMEN: Soft, nontender, nondistended. EXTREMITIES: Trace edema in bilateral lower extremities. Left lower extremity is wrapped and out of the boot this morning. No visible drainage, erythema or edema around the bandage site. SKIN: No other visible lesions or rashes. LABORATORIES: WBC 9.8, hemoglobin and hematocrit 10.9 and 34.6, platelets 335. Sodium and potassium 147 and 4.5. BUN and creatinine 53 and 3.54. C-reactive protein 10.9. IMPRESSION/PLAN: 1. Acute hypoxia in the setting of H1 influenza and pneumonia. He continues to be on supplemental oxygen and is being titrated down to 2 liters today. Continue with physical therapy (PT) and monitoring oxygen saturations with ambulation. C-reactive protein is gradually trending down. No fevers or white count and is otherwise improving without pulmonary treatment. At baseline, he is not on any oxygen. 2. Osteomyelitis of diabetic foot ulcer, being followed by Dr. Reeves. Is on Keflex. Continue antibiotics. No signs of systemic infection. MTDD
[2018-09-08] MEDS: SIMVASTATIN 20 MG TAB PO SCH (20:50)
[2018-09-08 22:00] VITALS: BP 144/77
--- NOTE | 2018-09-09 00:23 | ECGEPIP ---
[facility] Test Date: 2018-09-01 Pat Name: COLTON GREENE Department: Room: [place] [address] Gender: Male Funding Analyst: SHELLEY : 1940 Requested By: CHRISTOPHER HERNANDEZ Order Number: [id number] Reading MD: Colton Sahu Measurements Intervals [place] Rate: 100 P: 13 DE: 178 QRS: 33 QRSD: 128 T: 27 QT: 369 QTc: 477 Interpretive Statements SINUS TACHYCARDIA MODERATE INTRAVENTRICULAR CONDUCTION DELAY Nonspecific ST-T wave abnormalities Prolonged QT interval Electronically Signed on 09-09-2018 0:23:01 EDT by Colton Sahu
[2018-09-09] MEDS: IPRATROPIUM 0.5MG/ALBUTEROL 2.5MG INH SOL UD 3ML (DUONEB)(J7620) NEB SCH ×4 (01:56→20:36)
[2018-09-09 06:00] VITALS: BP 140/56
[2018-09-09] MEDS: HEPARIN SOD (PORCINE) 5000 UNITS/ML VIAL SQ SCH ×3 (06:19→21:58)
[2018-09-09 06:24] LABS: CREATININE FOR GFR 3.56 MG/DL (0.70-1.30)
[2018-09-09 06:25] LABS: GLOMERULAR FILTRATION RATE 17.7 (>42); POTASSIUM SERUM 4.6 MEQ/L (3.5-5.1)
[2018-09-09] MEDS: BENZONATATE 100 MG CAP PO SCH ×2 (08:41→21:59)
[2018-09-09] MEDS: CEPHALEXIN 500 MG CAP PO SCH ×2 (08:41→21:58)
[2018-09-09] MEDS: LEVEMIR (INSULIN DETEMIR) 1 UNITS/0.01ML SC SCH ×2 (08:41→21:58)
[2018-09-09] MEDS: CLOPIDOGREL 75 MG TAB PO SCH (08:41)
[2018-09-09] MEDS: HumaLOG INSULIN (NovoLOG) PER UNIT SC SCH ×4 (08:41→21:00)
[2018-09-09] MEDS: amLODIPine 5 MG TAB PO SCH (08:42)
[2018-09-09] MEDS: METOPROLOL TART 25 MG TABLET PO SCH ×2 (08:42→21:59)
[2018-09-09] MEDS: FLUTICASONE PROP 0.05% NASAL SPRAY 16 GM (FLONASE) NARES SCH (08:43)
--- NOTE | 2018-09-09 09:58 | IPNPDOC ---
Subjective Date Seen The patient was seen on 09/09/18. Subjective Chief Complaint/HPI Patient seen and examined at the bedside. No acute overnight events noted. The patient states continued steady improvement of his overall condition. Denies any specific acute complaints at this time. Objective Physical Examination General Exam: Positive: Alert, Cooperative, No Acute Distress ENT Exam: Positive: Atraumatic, Mucous membr. moist/pink Chest Exam: Positive: Diminished; Negative: Other Heart Exam: Positive: Rate Normal, Regular Rhythm, Normal S1, Normal S2 Abdomen Exam: Positive: Soft; Negative: Tenderness Extremity Exam: Negative: Tenderness Skin Exam: Positive: Other skin issue (left foot wrapped in surgical dressing.) Neuro Exam: Positive: Normal Gait, Normal Speech Psych Exam: Positive: Oriented x 3 Assessment /Plan Plan/VTE VTE Prophylaxis Ordered?: Yes Plan Sepsis with Hypoxemia 2/2 Multifocal Pneumonia, Influenza CT Chest notable for Multifocal Pneumonia on 08/27, likely 2/2 aspiration due to nausea/vomiting following surgery, and atelectasis post-operatively s/p Empiric antibiotic trial with Vanco/Zosyn/Doxy Patient's respiratory status has continued to improve as his supplemental oxygen is down to 2L--we will continue to down titrate this as tolerated ID and Pulmonary input appreciated Speech therapy eval on board to assess for aspiration risk We will cont to monitor Left Foot Diabetic Wound MRI of L. foot showed evidence of Osteo and possible small abscess on 08/19 s/p Surgical Debridement by Dr. Reeves of Podiatry on 08/23/18--no evidence of Osteo/Abscess formation noted as per Report, cultures noted s/p Empiric Abx coverage, transitioned to PO Keflex as per ID Podiatry on board CKD Stage IIB-IV with superimposed ARF Serum Cr has not returned back to baseline yet, however it is improving overall Patient making adequate UOP, lytes stable Nephrology on board, input appreciated Hypernatremia 2/2 Decreased PO Intake PO Hydration encouraged HTN Cont Norvasc IDDM Cont Insulin as ordered PAD s/p bypass graft of L. leg c/w home meds. HLD Cont Statin DVT Prophylaxis Heparin SC Dispo--pending continued clinical improvement. PT on board for functional optimization. VS, I&O, 24H, Fishbone Vital Signs/I&O Vital Signs Date Time Temp Pulse Resp B/P (MAP) Pulse Ox O2 Delivery O2 Flow Rate FiO2 6/15/19 08:42 98 154/76 09/09/18 06:00 97.7 18 93 2.0 I&O- Last 24 Hours up to 6 AM 09/09/18 06:00 Intake Total 1120 ml Output Total 1300 ml Balance -180 ml Laboratory Data 24H LABS Laboratory Tests 2 09/08/18 11:33: Bedside Glucose (Misc Panel) 208H 09/08/18 16:41: Bedside Glucose (Misc Panel) 212H 09/08/18 19:53: Bedside Glucose (Misc Panel) 178H 09/09/18 05:34: Anion Gap 5L, Glomerular Filtration Rate 17.7L, Blood Urea Nitrogen 49H, Creatinine 3.56H, Sodium Level 144, Potassium Level 4.6, Chloride Level 113H, Carbon Dioxide Level 26, Calcium Level 8.0L CBC/BMP Laboratory Tests 09/09/18 05:34 Calcium Level 8.0 L Microbiology Microbiology 08/30/18 Stool Occult Blood (MG) - Final, Complete IRENE PENA MD Sep 09, 2018 09:58
--- NOTE | 2018-09-09 12:38 | REP ---
CHEST, TWO VIEWS: Two views of the chest are performed and compared to prior study of 09/05/2018. Dense patchy infiltrates bilaterally involving the upper and lower lung zones have remained stable. The cardiomediastinal silhouette is unchanged. No acute changes are seen. IMPRESSION: Stable diffuse bilateral infiltrates. Electronically Signed by Talha Armenta MD 09/09/2018 07:30 P
[2018-09-09 14:00] VITALS: BP 133/59
[2018-09-09] MEDS: SIMVASTATIN 20 MG TAB PO SCH (21:58)
[2018-09-09 22:00] VITALS: BP 131/60
[2018-09-10] MEDS: IPRATROPIUM 0.5MG/ALBUTEROL 2.5MG INH SOL UD 3ML (DUONEB)(J7620) NEB SCH ×4 (02:00→19:35)
[2018-09-10] MEDS: HEPARIN SOD (PORCINE) 5000 UNITS/ML VIAL SQ SCH ×3 (05:46→21:55)
[2018-09-10 06:00] VITALS: BP 134/62
[2018-09-10 06:22] LABS: HEMOGLOBIN 11.2 g/dl (13.5-17.5); MEAN CORPUSCULAR HEMOGLOBIN 27.9 pg (27.0-33.0); MEAN CORPUSCULAR HGB CONC 31.1 g/dl (32.0-36.5); MEAN CORPUSCULAR VOLUME 89.8 fl (80.0-96.0); PLATELET COUNT, AUTOMATED 343 10^3/uL (150-450); RED BLOOD COUNT 4.01 10^6/uL (4.30-6.10); WHITE BLOOD COUNT 9.5 10^3/uL (4.0-10.0)
[2018-09-10 06:41] LABS: CALCIUM LEVEL 8.5 MG/DL (8.8-10.2); CREATININE FOR GFR 3.56 MG/DL (0.70-1.30); GLOMERULAR FILTRATION RATE 17.7 (>42); POTASSIUM SERUM 4.6 MEQ/L (3.5-5.1)
[2018-09-10] MEDS: HumaLOG INSULIN (NovoLOG) PER UNIT SC SCH ×4 (07:30→21:00)
[2018-09-10] MEDS: BENZONATATE 100 MG CAP PO SCH ×2 (09:23→21:53)
[2018-09-10] MEDS: LEVEMIR (INSULIN DETEMIR) 1 UNITS/0.01ML SC SCH ×2 (09:23→21:54)
[2018-09-10] MEDS: CEPHALEXIN 500 MG CAP PO SCH ×2 (09:23→21:52)
[2018-09-10] MEDS: METOPROLOL TART 25 MG TABLET PO SCH ×2 (09:24→21:54)
[2018-09-10] MEDS: amLODIPine 5 MG TAB PO SCH (09:24)
[2018-09-10] MEDS: CLOPIDOGREL 75 MG TAB PO SCH (09:24)
[2018-09-10] MEDS: FLUTICASONE PROP 0.05% NASAL SPRAY 16 GM (FLONASE) NARES SCH (09:25)
--- NOTE | 2018-09-10 13:44 | IPNPDOC ---
Subjective Date Seen The patient was seen on 09/10/18. Subjective Chief Complaint/HPI Patient seen and examined at bedside. No acute overnight events noted. Objective Physical Examination General Exam: Positive: Alert, Cooperative, No Acute Distress ENT Exam: Positive: Atraumatic, Mucous membr. moist/pink Chest Exam: Positive: Diminished; Negative: Other Heart Exam: Positive: Rate Normal, Regular Rhythm, Normal S1, Normal S2 Abdomen Exam: Positive: Soft; Negative: Tenderness Extremity Exam: Negative: Tenderness Skin Exam: Positive: Other skin issue (left foot wrapped in surgical dressing.) Neuro Exam: Positive: Normal Gait, Normal Speech Psych Exam: Positive: Oriented x 3 Assessment /Plan Plan/VTE VTE Prophylaxis Ordered?: Yes Plan Sepsis with Hypoxemia 2/2 Multifocal Pneumonia, Influenza CT Chest notable for Multifocal Pneumonia on 08/27, likely 2/2 aspiration due to nausea/vomiting following surgery, and atelectasis post-operatively s/p Empiric antibiotic trial with Vanco/Zosyn/Doxy Patient's respiratory status has continued to improve as his supplemental oxygen is down to 2L--we will continue to down titrate this as tolerated ID and Pulmonary input appreciated Speech therapy eval on board to assess for aspiration risk We will cont to monitor Left Foot Diabetic Wound MRI of L. foot showed evidence of Osteo and possible small abscess on 08/19 s/p Surgical Debridement by Dr. Reeves of Podiatry on 08/23/18--no evidence of Osteo/Abscess formation noted as per Report, cultures noted s/p Empiric Abx coverage, transitioned to PO Keflex as per ID Podiatry on board CKD Stage IIB-IV with superimposed ARF Serum Cr has not returned back to baseline, however it is improved overall Patient making adequate UOP, lytes stable Nephrology on board, input appreciated Hypernatremia 2/2 Decreased PO Intake, improved PO Hydration encouraged HTN Cont Norvasc IDDM Cont Insulin as ordered PAD s/p bypass graft of L. leg c/w home meds. HLD Cont Statin DVT Prophylaxis Heparin SC Dispo--pending continued clinical improvement. PT on board for functional optimization. VS, I&O, 24H, Fishbone Vital Signs/I&O Vital Signs Date Time Temp Pulse Resp B/P (MAP) Pulse Ox O2 Delivery O2 Flow Rate FiO2 09/10/18 09:24 72 134/62 09/10/18 06:00 98.2 18 91 09/09/18 06:00 2.0 I&O- Last 24 Hours up to 6 AM 09/10/18 06:00 Intake Total 2810 ml Output Total 425 ml Balance 2385 ml Laboratory Data 24H LABS Laboratory Tests 2 09/09/18 16:33: Bedside Glucose (Misc Panel) 176H 09/09/18 21:07: Bedside Glucose (Misc Panel) 103 09/10/18 05:34: Nucleated Red Blood Cells % (auto) 0.0, Anion Gap 6L, Glomerular Filtration Rate 17.7L, Blood Urea Nitrogen 45H, Creatinine 3.56H, Sodium Level 143, Potassium Level 4.6, Chloride Level 112H, Carbon Dioxide Level 25, Calcium Level 8.5L 09/10/18 11:34: Bedside Glucose (Misc Panel) 236H CBC/BMP Laboratory Tests 09/10/18 05:34 Red Blood Count 4.01 L, Mean Corpuscular Volume 89.8, Mean Corpuscular Hemoglobin 27.9, Mean Corpuscular Hemoglobin Concent 31.1 L, Red Cell Distribution Width 14.5, Calcium Level 8.5 L IRENE PENA MD Sep 10, 2018 13:44
[2018-09-10 14:00] VITALS: BP 132/59
--- NOTE | 2018-09-10 17:38 | IPN ---
DATE: 09/09/2018 SUBJECTIVE: Patient was seen and examined at the bedside today morning. He denies any active complaints. He reports that his shortness of breath is better. His oxygen was actually taken off today. He denies any lower extremity edema. Patient is currently not on any diuretics. Patient's renal function is very slowly improving. Creatinine is plateaued at 3.5 at this point. OBJECTIVE: VITAL SIGNS: Temperature is 98 degrees Fahrenheit, blood pressure is 133/59, pulse is 74, respiratory rate of 18, saturating 93% on room air. INTAKE AND OUTPUT: Urine output recorded is 1.3 liters yesterday, 375 mL so far today since overnight. Weight in the bed scale is 96.8 kg. PHYSICAL EXAMINATION GENERAL: Patient is awake, alert, oriented times three, laying in bed in no apparent distress. HEAD AND NECK EXAM: Extraocular muscles intact. Pupils equally round and reactive to light. Mucous membranes are moist. Neck is supple. There is mildly elevated jugular venous distention (JVD). CARDIOVASCULAR: S1, S2. Regular rate. No edema of the bilateral lower extremities. RESPIRATORY: Mild crepitations on deep inspiration bilaterally at the bases. Otherwise, no active rales or rhonchi. ABDOMEN: Soft. Positive bowel sounds. Nontender. No organomegaly. MUSCULOSKELETAL: No clubbing or cyanosis. Pulses are 2+. 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 Power is 5/5 in bilateral upper extremities. LABORATORY REVIEW: Complete blood count (CBC) showed a WBC of 9.8, hemoglobin 10.9, and that is from yesterday. Today morning, basic metabolic panel (BMP) showed sodium 144, potassium 4.6, chloride 113, bicarbonate 26, BUN 49, creatinine is 3.56, it was 3.54 yesterday, calcium is 8. IMAGING STUDIES: A repeat chest x-ray was done today morning which showed dense patchy infiltrates bilaterally in the lungs. ASSESSMENT/PLAN: 1. Acute kidney injury superimposed on chronic kidney disease. Patient is nonoliguric. He is making adequate amount of urine. Renal function is very slowly improving. Creatinine is down to 3.5. Continue to monitor for renal improvement at this point. 2. Hypoxemia. Patient's oxygen level is improving. Repeat chest x-ray was done today which showed dense consolidation 3. Multifocal pneumonia and influenza. Patient is symptomatically getting better. He is status post empiric antibiotics. Infectious disease is already seeing the patient. 4. Hypernatremia. The patient's sodium level has improved to 144 today. He is currently not getting any diuretics at this point. 5. Anemia in chronic kidney disease. Hemoglobin is 10.9 which is optimal. No need of erythropoiesis stimulating agent (REED) administration at this point. 6. Hypertension with chronic kidney disease. Continue current dose of amlodipine 10 mg by mouth daily, metoprolol 25 mg by mouth twice a day. Blood pressure is optimized.
[2018-09-10] MEDS ORDERED: FUROSEMIDE 40 MG/4 ML VIAL (J1940) IV ONE (20:00)
[2018-09-10 21:40] VITALS: BP 143/84
[2018-09-10] MEDS: SIMVASTATIN 20 MG TAB PO SCH (21:53)
[2018-09-10] MEDS ORDERED: FUROSEMIDE 40 MG TAB PO ONE (22:30)
[2018-09-11] MEDS: IPRATROPIUM 0.5MG/ALBUTEROL 2.5MG INH SOL UD 3ML (DUONEB)(J7620) NEB SCH ×4 (01:06→19:31)
[2018-09-11 05:36] VITALS: BP 130/64
[2018-09-11] MEDS: HEPARIN SOD (PORCINE) 5000 UNITS/ML VIAL SQ SCH ×3 (06:04→21:36)
[2018-09-11 06:32] LABS: CALCIUM LEVEL 8.7 MG/DL (8.8-10.2); CREATININE FOR GFR 3.5 MG/DL (0.70-1.30); GLOMERULAR FILTRATION RATE 18.1 (>42); POTASSIUM SERUM 4.3 MEQ/L (3.5-5.1)
[2018-09-11] MEDS: LEVEMIR (INSULIN DETEMIR) 1 UNITS/0.01ML SC SCH ×2 (08:17→21:34)
[2018-09-11] MEDS: BENZONATATE 100 MG CAP PO SCH ×2 (08:18→21:36)
[2018-09-11] MEDS: HumaLOG INSULIN (NovoLOG) PER UNIT SC SCH ×4 (08:18→21:34)
[2018-09-11] MEDS: amLODIPine 5 MG TAB PO SCH (08:18)
[2018-09-11] MEDS: CLOPIDOGREL 75 MG TAB PO SCH (08:18)
[2018-09-11] MEDS: METOPROLOL TART 25 MG TABLET PO SCH ×2 (08:19→21:35)
[2018-09-11] MEDS: CEPHALEXIN 500 MG CAP PO SCH ×2 (08:19→21:34)
[2018-09-11] MEDS: FLUTICASONE PROP 0.05% NASAL SPRAY 16 GM (FLONASE) NARES SCH (08:19)
--- NOTE | 2018-09-11 10:54 | IPN ---
DATE OF SERVICE: 09/10/2018 SUBJECTIVE: Patient was seen and examined at the bedside today morning. He was sitting on the sofa. He reports that he was short of breath last night and needed to put oxygen on. Oxygen was taken off today morning. There is no significant improvement in the renal function from yesterday, creatinine has been fluctuating at around 3.5, otherwise he is afebrile and hemodynamically stable. OBJECTIVE: VITAL SIGNS: Temperature is 98 degrees Fahrenheit. Blood pressure 132/59, pulse is 71, respiratory rate of 18, saturating 94% on room air. INTAKE AND OUTPUT: Urine output recorded is 625 mL yesterday, 1125 mL so far today since overnight. Weight on the bed scale is 96.8 kg. PHYSICAL EXAMINATION: GENERAL: Patient is awake, alert, oriented times three, sitting up on the sofa in no apparent distress. HEAD AND NECK EXAM: Extraocular muscles intact. Pupils equally round and reactive to light. Mucous membranes are moist. Neck is supple. There is no JVD. CARDIOVASCULAR: S1, S2 regular rate. No edema of the lower extremities. RESPIRATORY: Mild crepitations on deep inspiration bilaterally at the bases, otherwise no active rales or rhonchi. ABDOMEN: Soft, obese, positive bowel sounds. MUSCULOSKELETAL: There is no clubbing or cyanosis. The patient has a dressing on the left foot and there is left foot deformity. 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 Power is 5/5 in bilateral upper extremities. LABORATORY REVIEW: CBC showed a WBC of 9.5, hemoglobin 11.2, platelets of 343. BMP showed sodium 143, potassium 4.6, chloride 112, bicarb 25, BUN 45, creatinine is 3.5, calcium 8.5. CURRENT INPATIENT MEDICATIONS: The patient's medications were all reviewed by me. There is no change in the medications today as compared with yesterday. ASSESSMENT/PLAN: 1. Acute kidney injury superimposed on chronic kidney disease. The patient has nonoliguric acute renal failure, creatinine has been fluctuating at 3.5; however, acid base status and electrolytes are within the normal range. Continue to monitor for improvement of renal function. No urgent need of renal replacement therapy at this point. 2. Multifocal pneumonia and influenza. The patient still had persistent infiltrates on the chest x-ray done yesterday. He continues to be on oral antibiotics, symptomatically he is slowly improving. 3. Hypertension with chronic kidney disease. Blood pressure is optimal. Continue current dose of amlodipine and metoprolol, avoid use of YESSENIA inhibitors.
--- NOTE | 2018-09-11 12:02 | IPNPDOC ---
Subjective Date Seen The patient was seen on 09/11/18. Subjective Chief Complaint/HPI Patient seen and examined at bedside. No acute overnight events noted. Objective Physical Examination General Exam: Positive: Alert, Cooperative, No Acute Distress ENT Exam: Positive: Atraumatic, Mucous membr. moist/pink Chest Exam: Positive: Diminished; Negative: Other Heart Exam: Positive: Rate Normal, Regular Rhythm, Normal S1, Normal S2 Abdomen Exam: Positive: Soft; Negative: Tenderness Extremity Exam: Negative: Tenderness Skin Exam: Positive: Other skin issue (left foot wrapped in surgical dressing.) Neuro Exam: Positive: Normal Gait, Normal Speech Psych Exam: Positive: Oriented x 3 Assessment /Plan Plan/VTE VTE Prophylaxis Ordered?: Yes Plan Sepsis with Hypoxemia 2/2 Multifocal Pneumonia, Influenza CT Chest notable for Multifocal Pneumonia on 08/27, likely 2/2 aspiration due to nausea/vomiting following surgery, and atelectasis post-operatively s/p Empiric antibiotic trial with Vanco/Zosyn/Doxy Patient's respiratory status has continued to improve as his supplemental oxygen is down to 2L--we will continue to down titrate this as tolerated ID and Pulmonary input appreciated Speech therapy eval on board to assess for aspiration risk We will cont to monitor Left Foot Diabetic Wound MRI of L. foot showed evidence of Osteo and possible small abscess on 08/19 s/p Surgical Debridement by Dr. Reeves of Podiatry on 08/23/18--no evidence of Osteo/Abscess formation noted as per Report, cultures noted s/p Empiric Abx coverage, transitioned to PO Keflex as per ID Podiatry on board CKD Stage IIB-IV with superimposed ARF Serum Cr has not returned back to baseline, however it is improved overall. Currently has stabilized at 3.5 Patient making adequate UOP, lytes stable Nephrology on board, input appreciated Hypernatremia 2/2 Decreased PO Intake, improved PO Hydration encouraged HTN Cont Norvasc IDDM Cont Insulin as ordered PAD s/p bypass graft of L. leg c/w home meds. HLD Cont Statin DVT Prophylaxis Heparin SC Dispo--pending continued clinical improvement. PT on board for functional optimization. VS, I&O, 24H, Fishbone Vital Signs/I&O Vital Signs Date Time Temp Pulse Resp B/P (MAP) Pulse Ox O2 Delivery O2 Flow Rate FiO2 6/17/19 08:19 87 130/64 09/11/18 05:45 90 09/11/18 05:36 97.7 12 09/09/18 06:00 2.0 I&O- Last 24 Hours up to 6 AM 09/11/18 06:00 Intake Total 1470 ml Output Total 1875 ml Balance -405 ml Laboratory Data 24H LABS Laboratory Tests 2 09/10/18 16:31: Bedside Glucose (Misc Panel) 190H 09/10/18 19:53: Bedside Glucose (Misc Panel) 174H 09/11/18 05:33: Anion Gap 7L, Glomerular Filtration Rate 18.1L, Blood Urea Nitrogen 43H, Creatinine 3.50H, Sodium Level 144, Potassium Level 4.3, Chloride Level 111H, Carbon Dioxide Level 26, Calcium Level 8.7L 09/11/18 11:21: Bedside Glucose (Misc Panel) 164H CBC/BMP Laboratory Tests 09/11/18 05:33 Calcium Level 8.7 L IRENE PENA MD Sep 11, 2018 12:02
[2018-09-11 14:00] VITALS: BP 156/74
--- NOTE | 2018-09-11 21:11 | IPN ---
DATE: 09/11/2018 SUBJECTIVE: The patient was seen and examined at the bedside today, morning. The patient reported that he was nauseated this morning, and he could not finish his breakfast. He was given a dose of Lasix yesterday. He made more than one liter of urine with that dose. Renal function is stable. Creatinine has been fluctuating at 3.5 for the last 4 days. He is otherwise afebrile and hemodynamically stable. OBJECTIVE: VITAL SIGNS: Temperature is 97.7 degrees Fahrenheit, blood pressure 130/64, pulse is 87, respiratory rate of 12, saturating 90% on room air. INTAKE/OUTPUT: Urine output recorded as 1.2 liters yesterday, 1.2 liters so far today since overnight. Weight on the bed scale is not available. PHYSICAL EXAMINATION: GENERAL: The patient is awake, alert, oriented times three, laying in bed, in no apparent distress. HEAD AND NECK EXAM: Extraocular muscles intact. Pupils equally round and reactive to light. Mucous membranes are moist. Neck is supple. There is no jugular venous distention (JVD). CARDIOVASCULAR: S1, S2, regular rate. No edema of the lower extremities. RESPIRATORY: Chest is clear to auscultation bilaterally. Bilateral equal air entry. No rales or rhonchi. ABDOMEN: Abdomen is soft, obese, positive bowel sounds, nontender. MUSCULOSKELETAL: Patient has a dressing on the left foot, and there is left foot deformity. CENTRAL NERVOUS SYSTEM (GROUP FITNESS MANAGER): No focal deficit. Power is 5/5 in bilateral upper extremities. LAB REVIEW: CBC is from yesterday. BMP done today showed sodium 144, potassium 4.3, chloride 111, bicarbonate 26, BUN 43, creatinine is 3.50, it was 3.56 yesterday. Calcium 8.7. CURRENT INPATIENT MEDICATIONS: The patient's medications were all reviewed by me. He was given a dose of Lasix 40 mg IV times one dose. ASSESSMENT AND PLAN: 1. Acute kidney injury superimposed on chronic kidney disease. Patient's renal function is very gradually improving. He is nonoliguric. He is making more than a liter of urine a day. There is no urgent need of dialysis. Continue to monitor renal function on a day by day basis. 2. Influenza and multifocal pneumonia. Patient is status post IV antibiotics. He is also on oral Keflex 500 mg twice a day. Symptomatically, he is significantly better. 3. Hypertension with chronic kidney disease. Continue current dose of amlodipine and metoprolol. 4. Diabetes mellitus type 2, insulin dependent. Patient is currently on insulin Levemir and sliding scale. Glucose levels are optimal. Avoid use of metformin.
[2018-09-11] MEDS: SIMVASTATIN 20 MG TAB PO SCH (21:36)
[2018-09-11 22:00] VITALS: BP 115/69
[2018-09-12] MEDS: IPRATROPIUM 0.5MG/ALBUTEROL 2.5MG INH SOL UD 3ML (DUONEB)(J7620) NEB SCH ×4 (01:41→20:00)
[2018-09-12] MEDS: HEPARIN SOD (PORCINE) 5000 UNITS/ML VIAL SQ SCH ×3 (05:52→22:02)
[2018-09-12 06:00] VITALS: BP 130/70
[2018-09-12 07:03] LABS: C REACTIVE PROTEIN QUANTITATIV 2.19 MG/DL (0.00-0.30); CALCIUM LEVEL 8.4 MG/DL (8.8-10.2); CREATININE FOR GFR 3.55 MG/DL (0.70-1.30); GLOMERULAR FILTRATION RATE 17.8 (>42); POTASSIUM SERUM 4.1 MEQ/L (3.5-5.1)
[2018-09-12] MEDS: HumaLOG INSULIN (NovoLOG) PER UNIT SC SCH ×4 (07:30→21:00)
[2018-09-12] MEDS: ONDANSETRON 4 MG TAB (S0181) PO PRN (08:45)
[2018-09-12] MEDS: LEVEMIR (INSULIN DETEMIR) 1 UNITS/0.01ML SC SCH ×2 (08:45→22:02)
[2018-09-12] MEDS: CLOPIDOGREL 75 MG TAB PO SCH (08:45)
[2018-09-12] MEDS: amLODIPine 5 MG TAB PO SCH (08:46)
[2018-09-12] MEDS: BENZONATATE 100 MG CAP PO SCH ×2 (08:46→22:01)
[2018-09-12] MEDS: CEPHALEXIN 500 MG CAP PO SCH (08:46)
[2018-09-12] MEDS: METOPROLOL TART 25 MG TABLET PO SCH ×2 (08:46→22:03)
[2018-09-12] MEDS: FLUTICASONE PROP 0.05% NASAL SPRAY 16 GM (FLONASE) NARES SCH (08:47)
[2018-09-12 10:00] VITALS: BP 133/60
--- NOTE | 2018-09-12 12:08 | IPN ---
DATE: 09/11/2018 Mr. Dorman is doing very well. He is off oxygen and saturating between 94 and 98%. He ambulated very well with physical therapy. He has no complaints. He wants to go home. No fever or chills. No foot pain. No nausea, vomiting or diarrhea. His appetite is good. Cough has improved. Temperature is 98.1, pulse 95, respirations 18, blood pressure 115/69, O2 sat 94% on room air. Heart: Normal S1, S2. No murmurs. Lungs: Few crackles at the bases. Abdomen: Soft, nontender. No hepatosplenomegaly. Extremities: No edema. Left foot has no open ulcer measuring 4 x 4.5 cm with good granulation tissue. Dry skin around the ulcer. No purulence. No cellulitis. IMPRESSION: 1. 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 The patient will be treated with 6 weeks of total antibiotics, end of therapy will be the first week of September. 2. Influenza pneumonia, resolved. 2. Hypoxia has resolved. 3. Acute history of chronic kidney disease. His creatinine remains 3.5. PLAN: Obtain CBC, CRP, basic profile in the morning. Continue oral Keflex until first week of September. From infectious disease standpoint, the patient could be discharged home.
--- NOTE | 2018-09-12 13:56 | NUR ---
Recommend upgrade regular solids, continue thin liquids. please consider GI consult d/t pt reports of nausea & dry heaving, causing decreased PO intake. Addendum: 09/12/18 at [address] [facility] Amended: Links added.
[2018-09-12 14:00] VITALS: BP 131/75
--- NOTE | 2018-09-12 18:01 | IPNPDOC ---
Text Note Date of Service The patient was seen on 09/12/18. NOTE Subjective: Patient has had extended hospital stay. Underlying issues are pos sible aspiration pneumonia and a chronic wound that is positive for MSSA. Patient has clinically improved to where he could go home. However, he has had onset of nausea and disruption of his appetite. Objective: The patient is afebrile. Systolic blood pressures range from 115 - 133. O2 sats are 92-94% on room air. HEENT: Neck is supple with no adenopathy or thyromegaly. Oral mucosa is tacky. Cardiovascular: Regular rate and rhythm with a normal S1 and S2, no appreciable murmur or bruit. Respiratory: Lungs are clear to auscultation with no rhonchi, rales, wheezes or cough. Abdomen: Soft, moderate central obesity, no tenderness elicited to palpation, bowel tones are sparse. Extremities: Left foot is in compression bandage with no drainage, right foot. Pedal pulses palpable with no peripheral edema. Neuro: No focal neuromotor or sensory deficits. Psych: Patient does appear to have depressed affect Data of interest: CRP is now 2.19. Creatinine is at baseline at 3.55. Assessment/plan: 1. Chronic kidney disease stage IV, is stable. 2. Diabetic wound to Left foot: Patient has undergone incision and drainage. MSSA was isolated. Patient has been on appropriate antibiotic therapy. 3. Patient carries diagnosis of pneumonia. Aspiration appears to be a component. We are hopeful of getting Mr. Mayfield discharged home tomorrow with home health services. VS,Rebelbone, I+O VS, Rebelbone, I+O Laboratory Tests 09/12/18 06:10 Calcium Level 8.4 L Vital Signs Date Time Temp Pulse Resp B/P (MAP) Pulse Ox O2 Delivery O2 Flow Rate FiO2 09/12/18 14:00 98.2 80 18 131/75 (93) 96 09/09/18 06:00 2.0 I&O- Last 24 Hours up to 6 AM 09/12/18 06:00 Intake Total 1400 ml Output Total 1670 ml Balance -270 ml RODRIGO JOVEL MD Sep 12, 2018 18:01
--- NOTE | 2018-09-12 20:57 | IPN ---
DATE: 09/12/2018 SUBJECTIVE: The patient was seen and examined at the bedside today morning. He is afebrile. He reports that his nausea is slightly better today as compared with yesterday. There is no significant improvement in the renal function. Creatinine has been fluctuating at 3.5. He otherwise denies any chest pain or shortness of breath. OBJECTIVE: VITAL SIGNS: Temperature is 98.2 degree Fahrenheit. Fundi blood pressure 135/71, pulse is 80, respiratory rate of 18, saturating 96% on room air. INTAKE AND OUTPUT: Urine output recorded is 1.6 liters yesterday, 1 liter so far today since overnight. Weight in bed scale is 95.4 kg. PHYSICAL EXAMINATION: GENERAL: The patient is awake, alert, oriented times three, laying in bed in no apparent distress. HEAD AND NECK EXAM: Extraocular muscles intact. Pupils equally round and reactive to light. Mucous membranes are moist. Neck is supple. There is no JVD. CARDIOVASCULAR: S1, S2, regular rate. No edema of the right lower extremity. There is mild edema of the left lower extremities. RESPIRATORY: Chest is clear to auscultation bilaterally. Bilateral equal air entry. No rales or rhonchi. ABDOMEN: Soft. Positive bowel sounds. Nontender. MUSCULOSKELETAL: She has a dressing on the left foot and there is left foot deformity. CONTRACT ENGINEER: No focal deficit, power is 5/5 in bilateral upper extremities. LABORATORY REVIEW: CBC is from 09/10/2018. BMP showed sodium 143, potassium 4.1, chloride 111, bicarbonate 26, BUN 42, creatinine is 3.5, calcium 8.4, phosphorus is 6. CURRENT INPATIENT MEDICATIONS: The patient's medications were all reviewed by me. I have decreased his Keflex dose to 250 mg by mouth twice a day because his GFR is around 17 now. No other change in medications today as compared with yesterday. ASSESSMENT/PLAN: 1. Acute kidney injury superimposed on chronic kidney disease. There is no significant improvement in the renal function. GFR has been around 17-18. His acid base status is acceptable. Electrolytes are within the acceptable range. Continue to monitor for improvement. If I do not see any improvement in the renal function by the end of this week then patient will likely need to start hemodialysis. 2. Multifocal pneumonia and diabetic foot ulcer and osteomyelitis of the left foot. The patient is currently on Keflex. I have decreased the dose to 250 mg by mouth twice a day. He needs to finish 6 weeks of antibiotics. Last dose will be in first week of September 2018. 3. Hypertension. Blood pressure is optimal. Continue current dose of amlodipine and metoprolol. 4. Hyperphosphatemia. It is secondary to renal failure. I would avoid starting him on phosphorus binders because his appetite is already low and he complains of nausea in the morning.
[2018-09-12 22:00] VITALS: BP 132/69
[2018-09-12] MEDS: CEPHALEXIN 250 MG CAP PO SCH (22:01)
[2018-09-12] MEDS: SIMVASTATIN 20 MG TAB PO SCH (22:01)
[2018-09-13] MEDS: IPRATROPIUM 0.5MG/ALBUTEROL 2.5MG INH SOL UD 3ML (DUONEB)(J7620) NEB SCH ×3 (01:41→14:00)
[2018-09-13] MEDS: HEPARIN SOD (PORCINE) 5000 UNITS/ML VIAL SQ SCH ×2 (05:54→12:51)
[2018-09-13 06:00] VITALS: BP 115/66
[2018-09-13 07:30] LABS: HEMATOCRIT 34.7 % (42.0-52.0); HEMOGLOBIN 10.6 g/dl (13.5-17.5); MEAN CORPUSCULAR HEMOGLOBIN 28.1 pg (27.0-33.0); MEAN CORPUSCULAR HGB CONC 30.5 g/dl (32.0-36.5); PLATELET COUNT, AUTOMATED 272 10^3/uL (150-450); RED BLOOD COUNT 3.77 10^6/uL (4.30-6.10); WHITE BLOOD COUNT 9.3 10^3/uL (4.0-10.0)
[2018-09-13 07:52] LABS: CALCIUM LEVEL 8.5 MG/DL (8.8-10.2); CREATININE FOR GFR 3.57 MG/DL (0.70-1.30); GLOMERULAR FILTRATION RATE 17.7 (>42)
[2018-09-13 08:34] VITALS: BP 115/66
[2018-09-13] MEDS: CEPHALEXIN 250 MG CAP PO SCH (08:34)
[2018-09-13] MEDS: BENZONATATE 100 MG CAP PO SCH (08:34)
[2018-09-13] MEDS: CLOPIDOGREL 75 MG TAB PO SCH (08:34)
[2018-09-13] MEDS: amLODIPine 5 MG TAB PO SCH (08:34)
[2018-09-13] MEDS: METOPROLOL TART 25 MG TABLET PO SCH (08:34)
[2018-09-13] MEDS: LEVEMIR (INSULIN DETEMIR) 1 UNITS/0.01ML SC SCH (08:35)
[2018-09-13] MEDS: HumaLOG INSULIN (NovoLOG) PER UNIT SC SCH ×2 (08:35→12:51)
[2018-09-13] MEDS: FLUTICASONE PROP 0.05% NASAL SPRAY 16 GM (FLONASE) NARES SCH (08:36)
[2018-09-13] MEDS: ACETAMINOPHEN TAB 650MG DOSE (2X325MG) PO PRN (08:36)
--- NOTE | 2018-09-13 08:59 | NUR ---
Discharge recommendations: regular solids, thin liquids. consider GI consult d/t reports of dry heaving & nausea. Addendum: 09/13/18 at 0900 by HUY PACKER [facility] Amended: Links added.
[2018-09-13] MEDS ORDERED: FLUTISP NARES (11:58)
[2018-09-13] MEDS ORDERED: BENZ-18 PO (11:58)
[2018-09-13] MEDS ORDERED: KEFL250C11 PO (11:58)
[2018-09-13] MEDS ORDERED: INSUDET SC (11:58)
--- NOTE | 2018-09-13 14:44 | DS.PDOC ---
Discharge Summary General Date of Admission August 19, 2018 at 00:56 Date of Discharge 09/13/2018 Primary Care Physician: Colton Pizarro Specialist/Consultants Involve: Kennedy Reeves MD [facility] Specialist/Consultants Involve Other consultants include Dr. Bryant of the infectious disease service, Dr. Moya of the critical care pulmonary service, Dr. Echeverria of the renal service, Dr. Srivastava of the surgery service. Discharge Summary PROCEDURES PERFORMED DURING STAY: Incisional debridement with exploration and lavage of diabetic foot ulcer and abscess. ADMITTING DIAGNOSES: 1. Diabetic foot ulcer with osteomyelitis. DISCHARGE DIAGNOSES: . 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 Organisms isolated included Corynebacterium species and methicillin sensitive staph aureus.. COMPLICATIONS/CHIEF COMPLAINT: Diabetic Foot Ulcer With Osteomyelitis. HISTORY OF PRESENT ILLNESS: This 77-year-old male with a known history of long- standing diabetes with neuropathy. He has known left foot Charcot deformity. He also has chronic left foot ulcer. The patient has been followed by podiatry and is noted to have cellulitis with the ulcer. Concern was raised for osteomye litis. He had developed increased swelling of the foot and increased erythema.. HOSPITAL COURSE: The patient was admitted to the medical floor. MRI showed osteomyelitis and small abscess to the region of the cuboid and lateral cuneiform bones. Tear was also noted to the plantar fascia. The patient was taken to the OR for incisional debridement, exploration and lavage of the area. Subsequent cultures revealed Corynebacterium species and MSSA. The patient was seen by infectious disease services. The patient will be on a total of 6 weeks of antibiotics. At discharge, she has been transitioned to oral antibiotics in the form of Keflex. Dosage has been adjusted for his renal disease. The patient has chronic kidney disease, stage IIIB. Evaluation by ultrasound showed renal cortical thinning. The patient was medically managed by the nephrology service. However, if his renal function does not improve within the next month he will likely need to transition to dialysis. The patient developed respiratory distress during the hospital stay. Imaging studies showed multifocal pneumonia. He was also positive for influenza A. There is also component of aspiration. The patient's pneumonia did essentially resolved. He still has underlying risk of aspiration, however. The patient had been remarkably debilitated during this extended hospital stay. He had ongoing physical and occupational therapy services. He has done remarkably well and is now otherwise stable for discharge to home. Please note the patient utilizes a special orthotic ambulation boot for his left lower extremity.. DISCHARGE MEDICATIONS: Please see below. ALLERGIES: Please see below. PHYSICAL EXAMINATION ON DISCHARGE: HEENT: Neck is supple with no adenopathy or thyromegaly. Oral mucosa is tacky. Cardiovascular: Regular rate and rhythm with a normal S1 and S2, no appreciable murmur or bruit. Respiratory: Lungs are clear to auscultation with no rhonchi, rales, wheezes or cough. Abdomen: Soft, moderate central obesity, no tenderness elicited to palpation, bowel tones are sparse. Extremities: Left foot is in compression bandage with no drainage. Charcot deformity is present. Right foot pedal pulses palpable with no peripheral edema. Neuro: No focal neuromotor or sensory deficits. Psych: Patient does appear to have mildly depressed affect VITAL SIGNS: Please see below. LABORATORY DATA: Please see below. IMAGING: ACTIVITY: As tolerated. DIET: Consistent carbohydrate DISCHARGE PLAN: The patient is discharged to home with home health. This will include visits from home health nurse and physical and occupational therapy. He does not have an oxygen requirement. He will follow-up with nephrology services, Dr. Woody, in 1 week to determine whether he will need to proceed with starting hemodialysis. He will also follow-up with his banking services clerk, Dr. Reeves. Lastly, he is to follow-up with his primary care provider Colton Pizarro within 1 month. Medications will be continued as listed; please note reduced dosage of his Levemir. The patient will be on oral Keflex, which has been renally dosed; his 6 weeks of antibiotic therapy will be complete after September 30. DISPOSITION: . DISCHARGE INSTRUCTIONS: 1. . ITEMS TO FOLLOWUP ON ON OUTPATIENT: 1. . DISCHARGE CONDITION: Stable. TIME SPENT ON DISCHARGE: Greater than 45 minutes. Vital Signs/I&Os Vital Signs Date Time Temp Pulse Resp B/P (MAP) Pulse Ox O2 Delivery O2 Flow Rate FiO2 09/13/18 08:34 83 115/66 09/13/18 06:00 98.1 18 94 09/09/18 06:00 2.0 I&O- Last 24 Hours up to 6 AM 09/13/18 06:00 Intake Total 1060 ml Output Total 995 ml Balance 65 ml Laboratory Data Labs 24H Laboratory Tests 2 09/12/18 15:47: Bedside Glucose (Misc Panel) 46L 09/12/18 16:21: Bedside Glucose (Misc Panel) 68L 09/12/18 17:03: Bedside Glucose (Misc Panel) 95 09/12/18 21:35: Bedside Glucose (Misc Panel) 225H 09/13/18 06:23: Nucleated Red Blood Cells % (auto) 0.0, Anion Gap 6L, Glomerular Filtration Rate 17.7L, Blood Urea Nitrogen 39H, Creatinine 3.57H, Sodium Level 142, Potassium Level 4.0, Chloride Level 109H, Carbon Dioxide Level 27, Calcium Level 8.5L 09/13/18 12:14: Bedside Glucose (Misc Panel) 152H CBC/BMP Laboratory Tests 09/13/18 06:23 Red Blood Count 3.77 L, Mean Corpuscular Volume 92.0, Mean Corpuscular Hemoglobin 28.1, Mean Corpuscular Hemoglobin Concent 30.5 L, Red Cell Distribution Width 14.7 H, Calcium Level 8.5 L FSBS Laboratory Tests Test 09/12/18 15:47 09/12/18 16:21 09/12/18 17:03 09/12/18 21:35 Range/Units Bedside Glucose (Misc Panel) 46 68 95 225 83-110 MG/DL Test 09/13/18 12:14 Range/Units Bedside Glucose (Misc Panel) 152 83-110 MG/DL Discharge Medications Scheduled Amlodipine Besylate (Amlodipine Besylate) 5 Mg Tablet, 5 MG PO QHS, (Reported) Benzonatate (Benzonatate) 100 Mg Capsule, 100 MG PO BID FOR COUGHING Cephalexin (Keflex) 250 Mg Capsule, 250 MG PO BID THRU SEPTEMBER 30 Cilostazol (Cilostazol) 100 Mg Tablet, 100 MG PO BID, (Reported) Clopidogrel Bisulfate (Clopidogrel) 75 Mg Tablet, 75 MG PO DAILY, (Reported) Fluticasone Propionate (Fluticasone Propionate) 16 Gm [place].susp, 2 SPRAY NARES DAILY Insulin Detemir (Levemir) 100 Unit/1 Ml Vial, 18 UNITS SC BID Metoprolol Tartrate (Metoprolol Tartrate) 25 Mg Tablet, 25 MG PO BID, (Reported) Multivitamins (Thera M Plus Tablet) 1 Each Tablet, 1 TAB PO DAILY, (Reported) Silver Sulfadiazine (Ssd) 50 Gm Cream..g., 1 DOSE TOP BID, (Reported) APPLY TO ULCERS Simvastatin (Simvastatin) 20 Mg Tablet, 20 MG PO QHS, (Reported) Vitamin D (Vitamin D3) 1,000 Unit Tablet, 1,000 UNITS PO DAILY, (Reported) Allergies Coded Allergies: No Known Allergies (Unverified , 09/22/12) RODRIGO JOVEL MD Sep 13, 2018 14:44
--- NOTE | 2018-09-13 18:25 | IPN ---
DATE: 09/13/2018 SUBJECTIVE: The patient was seen and examined at the bedside today morning. He reports that his nausea is better. He has appetite is improving. He denies any lower extremity edema, shortness of breath. He is otherwise afebrile, hemodynamically stable. He continues to be on oral antibiotics. There is no significant improvement in the renal function. Creatinine has been fluctuating at 3.5. OBJECTIVE: Vital signs: Temperature is 98.1 degrees Fahrenheit, blood pressure 115/66, pulse is 83, respiratory of 18, saturating 94%. Intake and output: Urine output recorded is 1.4 liters yesterday, 370 mL so far today since overnight. Weight in the bed scale was 95.4 kg yesterday. PHYSICAL EXAMINATION: GENERAL: The patient is awake, alert, oriented times three, lying in bed in no apparent distress. HEAD AND NECK: Extraocular muscles intact. Pupils equally round and reactive to light. Mucous membranes are moist. Neck is supple. There is no jugular venous distention (JVD). CARDIOVASCULAR: S1, S2, regular rate. No edema of the right lower extremity. Trace edema of the left lower extremity. RESPIRATORY: Chest is clear to auscultation bilaterally. Bilateral equal air entry. No rales or rhonchi. ABDOMEN: Soft. Positive bowel sounds. Nontender. MUSCULOSKELETAL: Left foot dressing and left foot deformity was noted. CENTRAL NERVOUS SYSTEM: No focal deficit. Power is 5/5 in bilateral upper extremities. LABORATORY REVIEW: CBC showed a WBC of 9.3, hemoglobin 10.6, platelets of 172. BMP showed sodium 142, potassium is 4, chloride 109, bicarbonate 27, BUN 39, creatinine is 3.5, calcium is 8.5. CURRENT INPATIENT MEDICATIONS: The patient's medications were all reviewed by me. There is no change in the medications today as compared with yesterday. His Keflex dose was decreased yesterday, 250 mg by mouth twice a day. ASSESSMENT AND PLAN: 1. Acute kidney injury superimposed on chronic kidney disease. The patient's creatinine has been fluctuating at 3.5. His GFR is around 17-18. His volume status is optimal. Acid base status is within the acceptable range. No urgent need for dialysis; however, patient will need to have close followup with nephrology if he is discharged from the hospital. 2. Diabetic foot ulcer and osteomyelitis of the left foot. The patient is on Keflex. For his current GFR, 250 mg by mouth twice a day dose is adequate. He would finish 6 weeks of antibiotic in September 2018. 3. Hypertension. Continue amlodipine and metoprolol. Avoid angiotensin-converting enzyme (YESSENIA) inhibitors or angiotensin receptor blockers. DISPOSITION: It is okay to discharge the patient from nephrology standpoint. He needs to followup with nephrology within 1 week after discharge from the hospital.
== END 2018-09-13 16:50 | disposition home health service (06) | DRG 628 ==
LOC: M MS5PR 08-19 00:56 → M PCU 08-27 12:35 → M ICU 08-29 11:16 → M PCU 09-03 17:05 → M MS5PR 09-04 17:39
PROVIDERS: ADMIT Internal Medicine Nephrology; ATTEND Internal Medicine
PROC: 0JDR0ZZ Extraction of Left Foot Subcutaneous Tissue and Fascia, Open Approach (ICD-10-PCS; 2018-08-23)
PROC: 0QBP0ZX Excision of Left Metatarsal, Open Approach, Diagnostic (ICD-10-PCS; 2018-08-23)
PROC: 0Q8P0ZZ Division of Left Metatarsal, Open Approach (ICD-10-PCS; principal; 2018-08-23 17:00)
DX: E11.621 Type 2 diabetes mellitus with foot ulcer (principal); A41.9 Sepsis, unspecified organism; J69.0 Pneumonitis due to inhalation of food and vomit; J96.01 Acute respiratory failure with hypoxia; J10.00 Influenza due to other identified influenza virus with unspecified type of pneumonia; I21.4 Non-ST elevation (NSTEMI) myocardial infarction; I50.33 Acute on chronic diastolic (congestive) heart failure; L03.116 Cellulitis of left lower limb; E87.0 Hyperosmolality and hypernatremia; L02.612 Cutaneous abscess of left foot; I12.9 Hypertensive chronic kidney disease with stage 1 through stage 4 chronic kidney disease, or unspecified chronic kidney disease; E11.40 Type 2 diabetes mellitus with diabetic neuropathy, unspecified; E11.610 Type 2 diabetes mellitus with diabetic neuropathic arthropathy; L97.529 Non-pressure chronic ulcer of other part of left foot with unspecified severity; Z79.4 Long term (current) use of insulin; Z79.899 Other long term (current) drug therapy; H54.8 Legal blindness, as defined in USA; E11.51 Type 2 diabetes mellitus with diabetic peripheral angiopathy without gangrene; Z98.62 Peripheral vascular angioplasty status; D63.8 Anemia in other chronic diseases classified elsewhere; N18.3 Chronic kidney disease, stage 3 (moderate); E11.22 Type 2 diabetes mellitus with diabetic chronic kidney disease; Z79.02 Long term (current) use of antithrombotics/antiplatelets; N17.9 Acute kidney failure, unspecified; Z87.891 Personal history of nicotine dependence; E83.39 Other disorders of phosphorus metabolism; B95.61 Methicillin susceptible Staphylococcus aureus infection as the cause of diseases classified elsewhere; Z95.0 Presence of cardiac pacemaker; Y95 Nosocomial condition; E87.6 Hypokalemia

== ENCOUNTER → 2019-11-28 | Outpatient (REF) | payer MEDICARE, OTHER ==
[~2019-11-28] MED LIST changes: +AMLO1TAB24 PO; +BENZ-18 PO; +CHOL100029 PO; +FLUTISP NARES; +FURO40TA2 PO; +INSUH10VL SC; +KEFL250C11 PO; +LEVE1INJ5 SC; +LOSA50TA88 PO; +METO25TA4 PO; +PATIENT COMMENT; +SILV50CR TOP; +SIMV20TA22 PO; +VITMTA PO
== END ==
LOC: M LAB REF 16:57
PROVIDERS: ATTEND Podiatrist
DX: L03.129 Acute lymphangitis of unspecified part of limb (principal); M79.671 Pain in right foot

== ENCOUNTER → 2020-08-28 | Outpatient (REF) | payer MEDICARE, OTHER ==
[2020-08-28 18:54] LABS: MAU/CREAT RATIO 676.9 MCG/MG (0.0-30.0)
== END ==
LOC: M LAB REF 17:02
PROVIDERS: ATTEND Nurse Practitioner Family
DX: E11.65 Type 2 diabetes mellitus with hyperglycemia (principal)

== ENCOUNTER → 2022-01-14 | Outpatient (CLI) | payer MEDICARE, OTHER ==
[~2022-01-14] MED LIST changes: +CILO100T3 PO; +LOSA50TA28 PO; -LOSA50TA88 PO
== END ==
LOC: M RAD 13:34
PROVIDERS: ATTEND Internal Medicine Cardiovascular Disease
DX: I65.23 Occlusion and stenosis of bilateral carotid arteries (principal)

== ENCOUNTER → 2022-11-05 | Outpatient (REF) | payer MEDICARE, OTHER ==
[~2022-11-05] MED LIST changes: +FLUT50SP17 NARES; -FLUTISP NARES; +INSU100I6 SC; -LEVE1INJ5 SC
[2022-11-05 18:29] LABS: CREATININE, URINE 33.3 MG/DL; MAU/CREAT RATIO 354.3 MCG/MG (0.0-30.0)
== END ==
LOC: M LAB REF 17:08
PROVIDERS: ATTEND Internal Medicine Endocrinology, Diabetes & Metabolism
DX: E11.65 Type 2 diabetes mellitus with hyperglycemia (principal)

== ENCOUNTER → 2024-05-17 | Outpatient (CLI) | payer MEDICARE, OTHER ==
[~2024-05-17] MED LIST changes: -FLUT50SP17 NARES; +FLUTISP NARES
== END ==
LOC: M EKG 13:45
PROVIDERS: ATTEND Registered Nurse
DX: I49.3 Ventricular premature depolarization (principal)

== ENCOUNTER → 2024-07-12 | Outpatient (REF) | payer MEDICARE | LOC: M LAB REF 17:04 | PROVIDERS: ATTEND Podiatrist | DX: L03.126 Acute lymphangitis of left lower limb (principal) ==

== ENCOUNTER → 2024-11-13 | Outpatient (REF) | payer MEDICARE, BC | LOC: M LAB REF 14:34 | PROVIDERS: ATTEND Podiatrist | DX: L03.119 Cellulitis of unspecified part of limb (principal) ==

== ENCOUNTER → 2024-12-24 | Outpatient (CLI) | payer MEDICARE, BC | LOC: M CARPUL 15:12 | PROVIDERS: ATTEND Registered Nurse | DX: I49.3 Ventricular premature depolarization (principal); I50.32 Chronic diastolic (congestive) heart failure; I34.0 Nonrheumatic mitral (valve) insufficiency; I34.89 Other nonrheumatic mitral valve disorders ==

== ENCOUNTER → 2025-02-07 | Outpatient (CLI) | payer MEDICARE, BC | LOC: M RAD 14:36 | PROVIDERS: ATTEND Podiatrist | DX: M79.662 Pain in left lower leg (principal); R60.0 Localized edema; M79.89 Other specified soft tissue disorders ==